=== PATIENT | male | born 1935 | race Caucasian/White ===

== ENCOUNTER 2017-02-14 11:06 | Inpatient (IN) | payer MEDICARE ==
--- NOTE | 2017-02-14 12:15 | ED ---
General Adult HPI - General Chief complaint: Extremity Injury, Upper Stated complaint: PAIN ON LEFT SIDE, HEART PATIENT Time Seen by Provider: 02/14/17 12:03 Source: patient, RN notes reviewed Mode of arrival: ambulatory Limitations: no limitations - History of Present Illness Initial comments: This is an 82 male to the ED co chest pain, Left shoulder pain, patient has history of atrial fibrillation, hypertension, high cholesterol, and history of AAA. Patient is currently on coumadin. Patient is poor historian, history obtained from patient's . Patient has history of dementia. Patient unsure of why he is in the ER, states patient was having chest pain left-sided chest pain and pain to his back starting last night. denies any fevers or nausea or vomiting patient has not had any acute distress or any signs or symptoms of shortness of breath - Related Data Home Medications Medication Instructions Recorded Confirmed Acetaminophen Tab [Tylenol] 500 mg PO HS 06/10/14 02/14/17 Allopurinol 100 mg PO Q48H 06/10/14 02/14/17 Aspirin EC [Ecotrin Low Dose] 81 mg PO HS 06/10/14 02/14/17 Atenolol 25 mg PO HS 06/10/14 02/14/17 Donepezil HCl 10 mg PO HS 06/10/14 02/14/17 Multivitamins, Thera [Multivitamin 1 tab PO DAILY 06/10/14 02/14/17 (formulary)] Quinapril HCl [Accupril] 20 mg PO BID 06/10/14 02/14/17 Warfarin [Coumadin] 3.75 mg PO MOTH 06/11/14 02/14/17 Isosorbide Dinitrate [Isordil] 10 mg PO DAILY 03/24/16 02/14/17 Warfarin [Coumadin] 2.5 mg PO SUTUWEFRSA 03/24/16 02/14/17 Atenolol [Tenormin] 12.5 mg PO DAILY 02/14/17 02/14/17 Hydrochlorothiazide [Hydrodiuril] 25 mg PO DAILY 02/14/17 02/14/17 Simvastatin [Zocor] 40 mg PO HS 02/14/17 02/14/17 Allergies Allergy/AdvReac Type Severity Reaction Status Date / Time No Known Allergies Allergy Verified 02/14/17 12:24 Review of Systems ROS Statement: Those systems with pertinent positive or pertinent negative responses have been documented in the HPI. ROS Other: All systems not noted in ROS Statement are negative. Past Medical History Past Medical History: Atrial Fibrillation, Cancer, Dementia, Hyperlipidemia, Hypertension Additional Past Medical History / Comment(s): HX OF COLON CANCER. HX OF CHF. GOUT, HAS AAA THAT IS BEING MONITORED. BEGINNING DEMENTIA. History of Any Multi-Drug Resistant Organisms: None Reported Past Surgical History: Bowel Resection, Coronary Bypass/CABG Additional Past Surgical History / Comment(s): CATARACTS, CABG 1996. Past Anesthesia/Blood Transfusion Reactions: No Reported Reaction, Motion Sickness Past Psychological History: No Psychological Hx Reported Smoking Status: Never smoker Past Alcohol Use History: Rare Past Drug Use History: None Reported - Past Family History Brother(s) Family Medical History: Cancer Additional Family Medical History / Comment(s): PROSTATE CA General Exam Limitations: no limitations General appearance: alert, in no apparent distress Head exam: Present: atraumatic, normocephalic, normal inspection Eye exam: Present: normal appearance, PERRL, EOMI. Absent: scleral icterus, conjunctival injection, periorbital swelling ENT exam: Present: normal exam, mucous membranes moist Neck exam: Present: normal inspection. Absent: tenderness, meningismus, lymphadenopathy Respiratory exam: Present: normal lung sounds bilaterally. Absent: respiratory distress, wheezes, rales, rhonchi, stridor Cardiovascular Exam: Present: regular rate, normal rhythm, normal heart sounds. Absent: systolic murmur, diastolic murmur, rubs, gallop, clicks GI/Abdominal exam: Present: soft, normal bowel sounds. Absent: distended, tenderness, guarding, rebound, rigid Extremities exam: Present: normal inspection, full ROM, normal capillary refill. Absent: tenderness, pedal edema, joint swelling, calf tenderness Back exam: Present: normal inspection Neurological exam: Present: alert, oriented X3, CN II-XII intact Psychiatric exam: Present: normal affect, normal mood Skin exam: Present: warm, dry, intact, normal color. Absent: rash Course Vital Signs 02/14/17 02/14/17 02/14/17 11:53 12:38 13:55 Temperature 97.8 F Pulse Rate 57 L 81 Respiratory 16 18 Rate Blood Pressure 143/89 131/96 140/83 O2 Sat by Pulse 97 97 Oximetry - Reevaluation(s) Reevaluation #1: 02/14/17 14:36 Medical records reviewed including prior CTA regarding abdominal AAA, patient is not having abdominal pain at this time EKG Findings - EKG Comments: EKG Findings:: EKG shows sinus tachycardia rate of 111, [place] 176, QRS 90, QTC 489 Medical Decision Making - Medical Decision Making 79 female the ER for evaluation regarding left-sided chest pain back pain radiation from the front of his chest to his back. Patient has history of heart disease, currently on blood thinners, no need for anticoagulation at this time. Patient be admitted for cardiac monitoring cardiology evaluation, repeat troponin testing and telemetry. - Lab Data Result diagrams: 02/14/17 12:50 02/14/17 12:50 Lab Results 02/14/17 02/14/17 02/14/17 Range/Units 12:50 12:50 12:50 WBC 7.9 (3.8-10.6) k/uL RBC 5.21 (4.30-5.90) m/uL Hgb 15.7 (13.0-17.5) gm/dL Hct 47.3 (39.0-53.0) % MCV 90.8 (80.0-100.0) fL MCH 30.1 (25.0-35.0) pg MCHC 33.2 (31.0-37.0) g/dL RDW 12.3 (11.5-15.5) % Plt Count 244 (150-450) k/uL Neutrophils % 70 % Lymphocytes % 17 % Monocytes % 7 % Eosinophils % 4 % Basophils % 1 % Neutrophils # 5.6 (1.3-7.7) k/uL Lymphocytes # 1.3 (1.0-4.8) k/uL Monocytes # 0.6 (0-1.0) k/uL Eosinophils # 0.3 (0-0.7) k/uL Basophils # 0.1 (0-0.2) k/uL PT (9.0-12.0) sec INR (<1.2) APTT (22.0-30.0) sec Sodium 137 (137-145) mmol/L Potassium 4.4 (3.5-5.1) mmol/L Chloride 98 (98-107) mmol/L Carbon Dioxide 29 (22-30) mmol/L Anion Gap 10 mmol/L BUN 14 (9-20) mg/dL Creatinine 0.82 (0.66-1.25) mg/dL Est GFR (MDRD) Af Amer >60 (>60 ml/min/1.73 sqM) Est GFR (MDRD) Non-Af >60 (>60 ml/min/1.73 sqM) Glucose 119 H (74-99) mg/dL Calcium 9.7 (8.4-10.2) mg/dL Magnesium 1.7 (1.6-2.3) mg/dL Total Bilirubin 0.9 (0.2-1.3) mg/dL AST 28 (17-59) U/L ALT 31 (21-72) U/L Alkaline Phosphatase 66 (38-126) U/L Total Creatine Kinase 41 L (55-170) U/L CK-MB (CK-2) 1.4 (0.0-2.4) ng/mL CK-MB (CK-2) Rel Index 3.4 Troponin I <0.012 (0.000-0.034) ng/mL NT-Pro-B Natriuret Pep pg/mL Total Protein 6.9 (6.3-8.2) g/dL Albumin 4.2 (3.5-5.0) g/dL Lipase 69 (23-300) U/L 02/14/17 02/14/17 Range/Units 12:50 12:50 WBC (3.8-10.6) k/uL RBC (4.30-5.90) m/uL Hgb (13.0-17.5) gm/dL Hct (39.0-53.0) % MCV (80.0-100.0) fL MCH (25.0-35.0) pg MCHC (31.0-37.0) g/dL RDW (11.5-15.5) % Plt Count (150-450) k/uL Neutrophils % % Lymphocytes % % Monocytes % % Eosinophils % % Basophils % % Neutrophils # (1.3-7.7) k/uL Lymphocytes # (1.0-4.8) k/uL Monocytes # (0-1.0) k/uL Eosinophils # (0-0.7) k/uL Basophils # (0-0.2) k/uL PT 23.7 H (9.0-12.0) sec INR 2.5 H (<1.2) APTT 31.2 H (22.0-30.0) sec Sodium (137-145) mmol/L Potassium (3.5-5.1) mmol/L Chloride (98-107) mmol/L Carbon Dioxide (22-30) mmol/L Anion Gap mmol/L BUN (9-20) mg/dL Creatinine (0.66-1.25) mg/dL Est GFR (MDRD) Af Amer (>60 ml/min/1.73 sqM) Est GFR (MDRD) Non-Af (>60 ml/min/1.73 sqM) Glucose (74-99) mg/dL Calcium (8.4-10.2) mg/dL Magnesium (1.6-2.3) mg/dL Total Bilirubin (0.2-1.3) mg/dL AST (17-59) U/L ALT (21-72) U/L Alkaline Phosphatase (38-126) U/L Total Creatine Kinase (55-170) U/L CK-MB (CK-2) (0.0-2.4) ng/mL CK-MB (CK-2) Rel Index Troponin I (0.000-0.034) ng/mL NT-Pro-B Natriuret Pep 486 pg/mL Total Protein (6.3-8.2) g/dL Albumin (3.5-5.0) g/dL Lipase (23-300) U/L - Radiology Data Radiology results: report reviewed (Chest x-ray is negative for acute disease), image reviewed Critical Care Time Critical Care Time: Yes Total Critical Care Time: 31 Disposition Clinical Impression: Chest pain Disposition: HOME SELF-CARE Condition: Good Referrals: Judah Enrique MD [Primary Care Provider] - 1-2 days
[2017-02-14 13:11] LABS: Basophils # (A) 0.1 k/uL (0-0.2); Basophils % (A) 1 %; CH 30.2; CHCM 33.4; Eosinophils # (A) 0.3 k/uL (0-0.7); Eosinophils % (A) 4 %; HCT 47.3 % (39.0-53.0); HDW 2.46; HGB 15.7 gm/dL (13.0-17.5); Luc # (Auto) 0.12; Luc % (Auto) 2; Lymphocytes # (A) 1.3 k/uL (1.0-4.8); Lymphocytes % (A) 17 %; MCH 30.1 pg (25.0-35.0); MCHC 33.2 g/dL (31.0-37.0); MCV 90.8 fL (80.0-100.0); Mean Platelet Volume 6.9; Monocytes # (A) 0.6 k/uL (0-1.0); Monocytes % (A) 7 %; Neutrophils # (A) 5.6 k/uL (1.3-7.7); Neutrophils % (A) 70 %; RBC 5.21 m/uL (4.30-5.90); RDW 12.3 % (11.5-15.5); WBC 7.9 k/uL (3.8-10.6); WBC (Perox) 8.05
[2017-02-14 13:17] LABS: ALT 31 U/L (21-72); AST 28 U/L (17-59); Alkaline Phosphatase 66 U/L (38-126); Anion Gap 10 mmol/L; Blood Urea Nitrogen 14 mg/dL (9-20); Calcium 9.7 mg/dL (8.4-10.2); Carbon Dioxide 29 mmol/L (22-30); Chloride 98 mmol/L (98-107); Glucose 119 mg/dL (74-99); Magnesium 1.7 mg/dL (1.6-2.3); Non-African American GFR(MDRD) >60 (>60 ml/min/1.73 sqM); Potassium 4.4 mmol/L (3.5-5.1); Sodium 137 mmol/L (137-145); Total Bilirubin 0.9 mg/dL (0.2-1.3); Total Protein 6.9 g/dL (6.3-8.2)
[2017-02-14 13:23] LABS: Creatine Kinase 41 U/L (55-170)
[2017-02-14 13:25] LABS: INR 2.5 (<1.2); Partial Thromboplastin Time 31.2 sec (22.0-30.0); Prothrombin Time 23.7 sec (9.0-12.0)
--- NOTE | 2017-02-14 13:27 | XR ---
EXAMINATION TYPE: XR chest 2V DATE OF EXAM: 02/14/2017 COMPARISON: Prior chest x-ray 06/08/2014 HISTORY: Chest pain and left arm numbness TECHNIQUE: Frontal and lateral views of the chest are obtained on 4 images. FINDINGS: There is no focal air space opacity, pleural effusion, or pneumothorax seen. The cardiac silhouette size is stable and enlarged, surgical clips are again noted. There are overlying cardiac leads. The aorta is dense. Prominent lung volumes are again noted may be indicative of COPD. Thicken ing of the minor fissure stable. The osseous structures are intact. IMPRESSION: No acute cardiopulmonary process.
[2017-02-14 13:35] LABS: Creatine Kinase MB 1.4 ng/mL (0.0-2.4); Troponin I <0.012 ng/mL (0.000-0.034)
[2017-02-14] MEDS ORDERED: NITROGLYCERIN SL TABS 0.4 MG TAB SUBLINGUAL PRN (14:34)
[2017-02-14] MEDS ORDERED: ASPIRIN 81 MG PO STA (14:34)
[2017-02-14] MEDS ORDERED: MORPHINE SULFATE 4 MG/ML SYRINGE IV PRN (14:34)
[2017-02-14] MEDS ORDERED: MORPHINE SULFATE 10 MG/ML 1ML VIAL IV PRN (14:37)
[2017-02-14] MEDS ORDERED: WARFARIN 7.5 MG TAB PO SCH (18:00)
--- NOTE | 2017-02-14 18:35 | P.HPIM ---
History of Present Illness Chief complaint Left chest arm and back pain. History present illness Patient is an 82-year-old gentleman who has underlying dementia. Apparently he was brought in earlier by his stating that he had chest pain that started last evening. Patient himself complains of pain in the left back area and left lateral shoulder areas. Patient does have history of coronary artery disease and has had previous bypass surgery. Patient himself is a somewhat compromised historian. And has some memory impairment with his underlying Alzheimer's dementia. Past medical history History of coronary artery disease and previous coronary artery bypass. Hypertension History of gout Hypercholesterolemia History of abdominal aortic aneurysm Alzheimer's dementia Paroxysmal atrial fibrillation History of colonic polyps. Surgical history includes the coronary artery bypass. He's had bilateral eye surgeries. History of right colectomy. Medications: No known ALLERGIES Home medications: Acetaminophen 500 mg at night Allopurinol 100 mg every other day Aspirin 81 mg at at bedtime Atenolol 25 mg at at bedtime, 12.5 in the morning Aricept 10 mg at at bedtime Multiple vitamin daily Accupril 20 mg twice a day for blood pressure, VANCE inhibitor Coumadin 3.75 mg on Mondays and . 2.5 mg other days. Isosorbide dinitrate 10 mg daily Hydrochlorothiazide 25 mg daily Simvastatin 40 mg at at bedtime. Review of systems: Patient denies any unusual headache or visual disturbances. No fever chills or cough. No pleuritic pain. Chest pain as described above. Apparently has been very intermittent. No definite exertional component. No history of any specific injury. No nausea or vomiting. Patient denies any urinary or bowel symptomatology. Social history No history of smoking. No alcohol usage. Lives locally with his in the [facility]. Family history noncontributory Physical examination: The patient sitting up on the examination stretcher in the emergency room. In no acute distress. But mildly anxious. He initially stated that [place] Did not know that he was in the emergency room. He did not know who I was but recognized me as being familiar. He was not sure why he was where he was at. Vital signs revealed a temperature of 97.8 with a blood pressure of 147/88. Pulse was up to 118. Respirations 20. He is 94% saturated on room air. Head and neck exam unremarkable. No carotid bruits or adenopathy. No thyromegaly. Lungs were clear to auscultation. Heart tones were regular without murmurs or rubs. Slightly tachycardic. No marked chest wall tenderness noted. Abdomen was soft and nontender. No definite organomegaly noted. Extremities reveal no edema. Neurologically he is somewhat confused to place and time as stated above. No definite cranial or other focal deficits noted though. Laboratory CBC unremarkable with a white count 7.9, hemoglobin 15.7 and platelet count 244 INR 2.5. Electrolytes were normal with potassium 4.4 and sodium 137. BUN of 14 with creatinine 0.82 given him a GFR greater than 60. Blood sugar was 119. Other liver function tests normal. CK was only 41 with a troponin of less than 0.012. BNP was 486. Albumin 4.2. Chest x-ray revealed no acute process. EKG showed a sinus tachycardia with PVCs present. Nonspecific ST changes but no definite ischemic changes noted. Impressions: Chest pain as discussed in this 82-year-old gentleman with underlying Alzheimer' s disease. Enzymes presently normal. EKG nonspecific. The patient does have risk factors with underlying coronary artery disease and hypertension and hypercholesterolemia. History of atrial fibrillation on Coumadin. Therapeutic. Other past medical history as stated above. Plans: As discussed with the emergency room physician. The patient will be placed under observation overnight with serial troponin values performed. We've resumed his home medications including his nitrates and beta blockers and antihypertensive medications. Consultation with cardiology. Further recommendations pending clinical response and results of above. Past Medical History Past Medical History: Atrial Fibrillation, Cancer, Dementia, Hyperlipidemia, Hypertension Additional Past Medical History / Comment(s): HX OF COLON CANCER. HX OF CHF. GOUT, HAS AAA THAT IS BEING MONITORED. BEGINNING DEMENTIA. History of Any Multi-Drug Resistant Organisms: None Reported Past Surgical History: Bowel Resection, Coronary Bypass/CABG Additional Past Surgical History / Comment(s): CATARACTS, CABG 1996. Past Anesthesia/Blood Transfusion Reactions: No Reported Reaction, Motion Sickness Past Psychological History: No Psychological Hx Reported Smoking Status: Never smoker Past Alcohol Use History: Rare Past Drug Use History: None Reported - Past Family History Brother(s) Family Medical History: Cancer Additional Family Medical History / Comment(s): PROSTATE CA Medications and Allergies Home Medications Medication Instructions Recorded Confirmed Type Acetaminophen Tab [Tylenol] 500 mg PO HS 06/10/14 02/14/17 History Allopurinol 100 mg PO Q48H 06/10/14 02/14/17 History Aspirin EC [Ecotrin Low Dose] 81 mg PO HS 06/10/14 02/14/17 History Atenolol 25 mg PO HS 06/10/14 02/14/17 History Donepezil HCl 10 mg PO HS 06/10/14 02/14/17 History Multivitamins, Thera [Multivitamin 1 tab PO DAILY 06/10/14 02/14/17 History (formulary)] Quinapril HCl [Accupril] 20 mg PO BID 06/10/14 02/14/17 History Warfarin [Coumadin] 3.75 mg PO MOTH 06/11/14 02/14/17 History Isosorbide Dinitrate [Isordil] 10 mg PO DAILY 03/24/16 02/14/17 History Warfarin [Coumadin] 2.5 mg PO SUTUWEFRSA 03/24/16 02/14/17 History Atenolol [Tenormin] 12.5 mg PO DAILY 02/14/17 02/14/17 History Hydrochlorothiazide [Hydrodiuril] 25 mg PO DAILY 02/14/17 02/14/17 History Simvastatin [Zocor] 40 mg PO HS 02/14/17 02/14/17 History Allergies Allergy/AdvReac Type Severity Reaction Status Date / Time No Known Allergies Allergy Verified 02/14/17 12:24 Physical Exam Vitals: Vital Signs Temp Pulse Resp BP Pulse Ox 02/14/17 18:02 97.8 F 118 H 20 147/88 94 L 02/14/17 17:00 108 H 18 157/84 99 02/14/17 15:48 108 H 18 133/81 98 02/14/17 14:44 101 H 18 162/73 97 02/14/17 13:55 81 18 140/83 97 02/14/17 12:38 131/96 02/14/17 11:53 97.8 F 57 L 16 143/89 97 Intake and Output 02/14/17 02/14/17 02/14/17 06:59 14:59 22:59 Other: Weight 99.337 kg Patient Weight 02/15/17 06:59 Weight 99.337 kg Results CBC & Chem 7: 02/14/17 12:50 02/14/17 12:50 Labs: Abnormal Lab Results - Last 24 Hours (Table) 02/14/17 02/14/17 02/14/17 Range/Units 12:50 12:50 12:50 PT 23.7 H (9.0-12.0) sec INR 2.5 H (<1.2) APTT 31.2 H (22.0-30.0) sec Glucose 119 H (74-99) mg/dL Total Creatine Kinase 41 L (55-170) U/L
[2017-02-14] MEDS ORDERED: ATENOLOL 50 MG TAB PO STA (19:11)
[2017-02-14] MEDS: ATENOLOL 25 MG TAB PO SCH (19:37)
[2017-02-14] MEDS: SODIUM CHLORIDE 0.9% 1,000 ML IV SCH (19:37)
[2017-02-14 19:59] LABS: Creatine Kinase 49 U/L (55-170)
[2017-02-14 20:12] LABS: Creatine Kinase MB 1.5 ng/mL (0.0-2.4); Troponin I <0.012 ng/mL (0.000-0.034)
[2017-02-14] MEDS: LISINOPRIL 20 MG TAB PO SCH (20:42)
[2017-02-14] MEDS: ALPRAZolam 0.5 MG TAB PO PRN (20:42)
[2017-02-14] MEDS: ACETAMINOPHEN TAB 500 MG TAB PO SCH (20:42)
[2017-02-14] MEDS: DONEPEZIL 10 MG TAB PO SCH (20:42)
[2017-02-14] MEDS: ATORVASTATIN 20 MG TAB PO SCH (20:42)
[2017-02-15 02:25] LABS: Creatine Kinase 48 U/L (55-170)
[2017-02-15 02:29] LABS: Cholesterol 125 mg/dL (<200); HDL Cholesterol 36 mg/dL (40-60)
[2017-02-15 02:37] LABS: Creatine Kinase MB 1.5 ng/mL (0.0-2.4); Troponin I <0.012 ng/mL (0.000-0.034)
--- NOTE | 2017-02-15 07:47 | P.PN ---
Progress Note - Text The patient is an 82-year-old gentleman who presented yesterday after having recurrent chest pain at home. Patient does have a history of coronary artery disease along with history of previous bypass. His also had atrial fibrillation in the past and required a conversion electrically couple years ago. is present this morning and states that he was having pain mostly when he was getting up and walking around in the house. Patient with his dementia does not really remember and today denies any chest pain or shortness of breath. Apparently patient is scheduled early next month for stress testing and echocardiogram as patient follows with cardiology as an outpatient. Vital signs reveal temperature 97.9 pulse of 59 and irregular with a respiration of 18 and blood pressure 131/64. He is 95% saturated on room air. Lung and heart examination is clear. Rate controlled. Abdomen nontender. No edema. No focal neurological deficits. Laboratory values CKs have remained low throughout the night along with troponins 3 less than 0.012. Cholesterol values are good with a LDL cholesterol of 72. EKG showed an irregular rhythm. Possible PVCs. Question underlying atrial/ fibrillation flutter. Impressions and plans Overall this 82-year-old gentleman who has some cognitive impairment presented with recurrent left chest and arm pain. And has underlying coronary artery disease. No definite myocardial infarction seen on laboratory testing. He is not having chest pain this morning so far. We'll await for cardiology evaluation and review. Discussed with patient and at bedside this morning.
[2017-02-15] MEDS ORDERED: AMINOPHYLLINE 500 MG/20 ML VIAL IV PRN (09:49)
[2017-02-15] MEDS ORDERED: REGADENOSON 0.4 MG/5 ML SYRINGE IV ONE (09:49)
[2017-02-15] MEDS: ASPIRIN 325 MG TAB PO SCH (11:54)
[2017-02-15] MEDS: MULTIVITAMINS, THERA 1 EACH TAB PO SCH (11:54)
[2017-02-15] MEDS: LISINOPRIL 20 MG TAB PO SCH ×2 (11:54→19:54)
[2017-02-15] MEDS: ISOSORBIDE DINITRATE 10 MG TAB PO SCH (11:54)
[2017-02-15] MEDS: HYDROCHLOROTHIAZIDE 25 MG TAB PO SCH (11:55)
[2017-02-15] MEDS: ATENOLOL 12.5 MG TAB PO SCH (11:55)
--- NOTE | 2017-02-15 11:55 | P.CRDCN ---
History of Present Illness Consult date: 02/15/17 History of present illness: This is an 82-year-old male who follow regularly with Dr. KEE Enamorado. Past medical history significant for CABG, CAD with totally occluded saphenous vein graft, patent HINDS to LAD, RCA and circumflex free of significant disease as of 2008. He also has hypertension, paroxysmal atrial fibrillation and ischemic cardiomyopathy with systolic dysfunction EF 45%. He presented to the hospital with complaints of left shoulder, back and arm pain. He states this pain is worse when he moves his arm but is constant. He is a poor historian secondary to dementia. is at the bedside. He recently saw Dr. Enamorado and was scheduled for a Lexiscan early next month. Denies EKG reveals atrial flutter with controlled rate and PVC's. Chest xray megative for acute cardiopulmonary process. CBC within normal limits, potassium 4.4, magnesium 1.7, BUS and 14, creatinine 0.82, proBNP 486, HDL 36, LDL 72, triglycerides 83, total cholesterol 125. Cardiac enzymes negative 3. INR 2.5. Blood pressure 137/70 with a heart rate of 59. Current cardiac medications include Coumadin, Zocor 40 mg, Accupril 20 mg twice a day, isosorbide dinitrate 10 mg, hydrochlorothiazide 25 mg, isosorbide dinitrate 10 mg, atenolol, aspirin 81 mg. Review of Systems CONSTITUTIONAL: Denies fever. Denies chills. EYES: Denies blurred vision. Denies vision changes. Denies eye pain. EARS, NOSE, MOUTH & THROAT: Denies headache. Denies sore throat. Denies ear pain. CARDIOVASCULAR: Denies chest pain. Complains of intermittent shortness of breath. Denies orthopnea. Denies PND. Denies palpitations. RESPIRATORY: Denies cough. GASTROINTESTINAL: Denies abdominal pain. Denies diarrhea. Denies constipation. Denies nausea. Denies vomitng. MUSCULOSKELETAL: Denies myalgias. INTEGUMENTARY: Denies pruitis. Denies rash. NEUROLOGIC: Denies numbness. Denies tingling. Denies weakness. PSYCHIATRIC: Denies anxiety. Denies depression. ENDOCRINE: Denies fatigue. Denies weight change. Denies polydipsia. Denies polyurina. GENITOURINARY: Denies burning, hematuria or urgency with micturation. HEMATOLOGIC: Denies history of anemia. Denies bleeding. Past Medical History Past Medical History: Atrial Fibrillation, Cancer, Dementia, Hyperlipidemia, Hypertension Additional Past Medical History / Comment(s): HX OF COLON CANCER. HX OF CHF. GOUT, HAS AAA THAT IS BEING MONITORED. BEGINNING DEMENTIA. History of Any Multi-Drug Resistant Organisms: None Reported Past Surgical History: Bowel Resection, Coronary Bypass/CABG Additional Past Surgical History / Comment(s): CATARACTS, CABG 1996. Past Anesthesia/Blood Transfusion Reactions: No Reported Reaction, Motion Sickness Past Psychological History: No Psychological Hx Reported Smoking Status: Never smoker Past Alcohol Use History: Rare Past Drug Use History: None Reported - Past Family History Brother(s) Family Medical History: Cancer Additional Family Medical History / Comment(s): PROSTATE CA Medications and Allergies Home Medications Medication Instructions Recorded Confirmed Type Acetaminophen Tab [Tylenol] 500 mg PO HS 06/10/14 02/14/17 History Allopurinol 100 mg PO Q48H 06/10/14 02/14/17 History Aspirin EC [Ecotrin Low Dose] 81 mg PO HS 06/10/14 02/14/17 History Atenolol 25 mg PO HS 06/10/14 02/14/17 History Donepezil HCl 10 mg PO HS 06/10/14 02/14/17 History Multivitamins, Thera [Multivitamin 1 tab PO DAILY 06/10/14 02/14/17 History (formulary)] Quinapril HCl [Accupril] 20 mg PO BID 06/10/14 02/14/17 History Warfarin [Coumadin] 3.75 mg PO MOTH 06/11/14 02/14/17 History Isosorbide Dinitrate [Isordil] 10 mg PO DAILY 03/24/16 02/14/17 History Warfarin [Coumadin] 2.5 mg PO SUTUWEFRSA 03/24/16 02/14/17 History Atenolol [Tenormin] 12.5 mg PO DAILY 02/14/17 02/14/17 History Hydrochlorothiazide [Hydrodiuril] 25 mg PO DAILY 02/14/17 02/14/17 History Simvastatin [Zocor] 40 mg PO HS 02/14/17 02/14/17 History Allergies Allergy/AdvReac Type Severity Reaction Status Date / Time No Known Allergies Allergy Verified 02/14/17 12:24 Physical Exam Vitals: Vital Signs Temp Pulse Pulse Resp BP BP BP 02/15/17 08:00 97.4 F L 59 L 18 137/70 02/15/17 04:00 18 02/15/17 00:00 97.9 F 59 L 18 131/64 02/14/17 20:00 98.2 F 120 H 16 150/76 02/14/17 18:02 97.8 F 118 H 20 147/88 02/14/17 17:00 108 H 18 157/84 02/14/17 15:48 108 H 18 133/81 02/14/17 14:44 101 H 18 162/73 02/14/17 13:55 81 18 140/83 02/14/17 12:38 131/96 02/14/17 11:53 97.8 F 57 L 16 143/89 Pulse Ox 02/15/17 08:00 93 L 02/15/17 04:00 02/15/17 00:00 95 02/14/17 20:00 94 L 02/14/17 18:02 94 L 02/14/17 17:00 99 02/14/17 15:48 98 02/14/17 14:44 97 02/14/17 13:55 97 02/14/17 12:38 02/14/17 11:53 97 Intake and Output 02/14/17 02/15/17 02/15/17 22:59 06:59 14:59 Other: Voiding Method Toilet # Voids 1 Weight 98.7 kg GENERAL: This is a 82-year-old male in no apparent distress at the time of my examination. HEENT: Head is atraumatic, normocephalic. Pupils are equal, round. Sclerae anicteric. Conjunctivae are clear. Mucous membranes of the mouth are moist. Neck is supple. There is no jugular venous distention. No carotid bruit is heard. LUNGS: Clear to auscultation no wheezes, rales or rhonchi. No chest wall tenderness is noted on palpation or with deep breathing. HEART: Regular rate and rhythm without murmurs, rubs or gallops. S1 and S2 heard. ABDOMEN: Soft, nontender. Bowel sounds are heard. No organomegaly noted. EXTREMITIES: 2+ peripheral pulses with no evidence of peripheral edema and no calf tenderness noted. NEUROLOGIC: Patient is awake, alert and confused. Results 02/14/17 12:50 02/14/17 12:50 Cardiac Enzymes 02/14/17 02/14/17 02/14/17 Range/Units 12:50 12:50 19:05 AST 28 (17-59) U/L CK-MB (CK-2) 1.4 1.5 (0.0-2.4) ng/mL Troponin I <0.012 <0.012 (0.000-0.034) ng/mL 02/15/17 Range/Units 01:01 AST (17-59) U/L CK-MB (CK-2) 1.5 (0.0-2.4) ng/mL Troponin I <0.012 (0.000-0.034) ng/mL Coagulation 02/14/17 Range/Units 12:50 PT 23.7 H (9.0-12.0) sec APTT 31.2 H (22.0-30.0) sec Lipids 02/15/17 Range/Units 01:05 Triglycerides 83 (<150) mg/dL Cholesterol 125 (<200) mg/dL HDL Cholesterol 36 L (40-60) mg/dL CBC 02/14/17 Range/Units 12:50 WBC 7.9 (3.8-10.6) k/uL RBC 5.21 (4.30-5.90) m/uL Hgb 15.7 (13.0-17.5) gm/dL Hct 47.3 (39.0-53.0) % Plt Count 244 (150-450) k/uL Comprehensive Metabolic Panel 02/14/17 Range/Units 12:50 Sodium 137 (137-145) mmol/L Potassium 4.4 (3.5-5.1) mmol/L Chloride 98 (98-107) mmol/L Carbon Dioxide 29 (22-30) mmol/L BUN 14 (9-20) mg/dL Creatinine 0.82 (0.66-1.25) mg/dL Glucose 119 H (74-99) mg/dL Calcium 9.7 (8.4-10.2) mg/dL AST 28 (17-59) U/L ALT 31 (21-72) U/L Alkaline Phosphatase 66 (38-126) U/L Total Protein 6.9 (6.3-8.2) g/dL Albumin 4.2 (3.5-5.0) g/dL Current Medications Generic Name Dose Route Start Last Admin Trade Name Freq PRN Reason Stop Dose Admin Acetaminophen 500 mg 02/14/17 21:00 02/14/17 20:42 Tylenol Tab PO 500 mg HS EVONNE Administration Allopurinol 100 mg 02/16/17 09:00 Zyloprim PO Q48H [facility] Alprazolam 0.5 mg 02/14/17 18:36 02/14/17 20:42 Xanax PO 0.5 mg TID PRN Administration Anxiety Aminophylline 100 mg 02/15/17 09:49 Aminophylline IV 02/15/17 16:00 ONCE PRN Patient Response Aspirin 325 mg 02/15/17 09:00 Aspirin PO DAILY [facility] Atenolol 25 mg 02/14/17 21:00 02/14/17 19:37 Tenormin PO Not Given HS [facility] Atenolol 12.5 mg 02/15/17 09:00 Tenormin PO DAILY [facility] Atorvastatin Calcium 20 mg 02/14/17 21:00 02/14/17 20:42 Lipitor PO 20 mg HS [facility] Administration Donepezil HCl 10 mg 02/14/17 21:00 02/14/17 20:42 Aricept PO 10 mg HS [facility] Administration Hydrochlorothiazide 25 mg 02/15/17 09:00 Hydrodiuril PO DAILY [facility] Sodium Chloride 1,000 mls @ 20 mls/hr 02/14/17 14:45 02/14/17 19:37 Saline 0.9% IV Not Given .Q24H [facility] Isosorbide Dinitrate 10 mg 02/15/17 09:00 Isordil PO DAILY [facility] Lisinopril 20 mg 02/14/17 21:00 02/14/17 20:42 Zestril PO 20 mg BID [facility] Administration Morphine Sulfate 4 mg 02/14/17 14:37 Morphine Sulfate IV Q5M PRN Chest Pain Multivitamins 1 each 02/15/17 12:00 Theragran PO DAILY@1200 [facility] Nitroglycerin 0.4 mg 02/14/17 14:34 Nitrostat SUBLINGUAL Q5M PRN Chest Pain Warfarin Sodium 2.5 mg 02/15/17 18:00 Coumadin PO SUTUWEFRSA [facility] Warfarin Sodium 3.75 mg 02/14/17 18:00 02/14/17 20:41 Coumadin PO 3.75 mg MOTH EVONNE Administration Intake and Output 02/14/17 02/15/17 02/15/17 22:59 06:59 14:59 Other: Voiding Method Toilet # Voids 1 Weight 98.7 kg 02/14/17 12:50 02/14/17 12:50 Assessment and Plan Assessment: ASSESSMENT 1. Chest pain, musculoskeletal 2. Chronic stable CAD with previous bypass grafting 3. Essential hypertension 4. Dyslipidemia 5. Paroxysmal atrial fibrillation/flutter, chronic on jail anticoagulation 6. Dementia PLAN Although his symptoms present more musculoskeletal in nature this was discussed with his . Given the option of following up at her regularly scheduled appointment for this testing she request that we move forward today. Therefore we will obtain lexiscan and 2D echocardiogram doppler study to assess cardiac structure and function. If this is normal he can go home to follow up with Dr. Enamorado in 2 weeks time. Nurse Practitioner note has been reviewed, I agree with a documented findings and plan of care. Patient was seen and examined.
--- NOTE | 2017-02-15 12:21 | ECHOF ---
Referral Reason:chest pain MEASUREMENTS -------- HEIGHT: 182.9 cm WEIGHT: 98.4 kg BP: 137/70 RVIDd: 2.8 cm (< 3.3) IVSd: 1.4 cm (0.6 - 1.1) LVIDd: 5.4 cm (3.9 - 5.3) LVPWd: 1.4 cm (0.6 - 1.1) IVSs: 1.8 cm LVIDs: 3.5 cm LVPWs: 1.5 cm LA Diam: 3.9 cm (2.7 - 3.8) LAESV Index (A-L): 35.13 ml/m Ao Diam: 4.5 cm (2.0 - 3.7) AV Cusp: 2.5 cm (1.5 - 2.6) MV EXCURSION: 15.857 mm (> 18.000) MV EF SLOPE: 49 mm/s (70 - 150) EPSS: 0.9 cm AR PHT: 663 ms RAP: 5.00 mmHg RVSP: 29.26 mmHg FINDINGS -------- This was a technically good study. The left ventricular size is normal. There is moderate concentric left ventricular hypertrophy. Overall left ventricular systolic function is mild-moderately impaired with, an EF between 40 - 45 %. Basal inferior LV wall motion is hypokinetic. Basal inferoseptal LV wall motion is hypokinetic. The right ventricle is normal in size. LA is moderately dilated 34-39 ml/m2 The right atrium is normal in size. There is mild aortic valve sclerosis. Mild mitral annular calcification present. Mild tricuspid regurgitation present. Right ventricular systolic pressure is normal at < 35 mmHg. Moderate pulmonic regurgitation. The aortic root is dilated measuring 4.5cm. Normal inferior vena cava with normal inspiratory collapse consistent with estimated right atrial pressure of 5 mmHg. There is no pericardial effusion. CONCLUSIONS -------- 1. This was a technically good study. 2. There is mild aortic valve sclerosis. 3. Mild mitral annular calcification present. 4. Mild tricuspid regurgitation present. 5. Right ventricular systolic pressure is normal at < 35 mmHg. 6. Moderate pulmonic regurgitation. 7. The aortic root is dilated measuring 4.5cm. 8. Normal inferior vena cava with normal inspiratory collapse consistent with estimated right atrial pressure of 5 mmHg. 9. There is no pericardial effusion. 10. The left ventricular size is normal. 11. There is moderate concentric left ventricular hypertrophy. 12. Overall left ventricular systolic function is mild-moderately impaired with, an EF between 40 - 45 %. 13. Basal inferior LV wall motion is hypokinetic. 14. Basal inferoseptal LV wall motion is hypokinetic. 15. The right ventricle is normal in size. 16. LA is moderately dilated 34-39 ml/m2 17. The right atrium is normal in size. APPLE PICKER: Sari Becerril RDCS
[2017-02-15] MEDS ORDERED: ATENOLOL 25 MG TAB PO STA (12:45)
--- NOTE | 2017-02-15 13:19 | EST ---
EXERCISE STRESS DATE OF SERVICE: 02/15/2017 AGE: 82 SEX: Male HT: 6'0" WT: 230 pounds PROTOCOL: Lexiscan Cardiolite STAGE: DURATION OF EXERCISE: HEART RATE REST: 121 BLOOD PRESSURE REST: 219/114 MAXIMUM HEART RATE ACHIEVED: 121 MAXIMUM BLOOD PRESSURE: 232/107 85% MPHR: 100% MPHR: METS: INDICATION OF THE STUDY: Chest pain, coronary artery disease. STRESS DATA: Pretesting physical examination showed a heart rate of 121, pressures of 219/114 mmHg. Baseline EKG showed sinus tachycardia. The patient was given 0.4 mg of Lexiscan over 15 seconds per protocol. The max heart rate was 121 beats per minute and maximum pressure was 232/107 mmHg. Clinically, the patient did not have any symptoms and the EKG did not show any significant ST or T-wave abnormalities consistent with ischemia. CONCLUSION: 1. Nondiagnostic electrocardiogram stress testing in response to Lexiscan. 2. Please follow up on the Cardiolite portion on a separate report from Radiology Department. MMODL / IJN: [id number] /
--- NOTE | 2017-02-15 13:21 | NM ---
EXAMINATION TYPE: NM stress lexiscan cardiolite DATE OF EXAM: 02/15/2017 COMPARISON: NONE HISTORY: Chest pain TECHNIQUE: After the intravenous administration of 11.5 mCi Tc 99m Sestamibi - Cardiolite resting SP ECT images acquired 45 minutes post injection. The patient received 0.4mg Lexiscan, 29.0 mCi Tc 99m Sestamibi - Stress images obtained [address] injection FINDINGS: Review of stress and rest SPECT images demonstrates decreased radio pharmaceutical uptake along the a nterior wall of the left ventricle on stress and rest images. Along the anterolateral left ventricle there is decreased uptake on stress images as compared to rest images extends into the apex. Gated an alysis shows normal wall motion with an estimated left ventricular ejection fraction of 48 %. IMPRESSION: Findings compatible with pharmacologically induced left ventricular myocardial ischemia along the pre vious infarct along the anterior wall.
[2017-02-15] MEDS ORDERED: WARFARIN 2.5 MG TAB PO SCH (18:00)
[2017-02-15] MEDS: SODIUM CHLORIDE 0.9% 1,000 ML IV SCH (18:15)
[2017-02-15] MEDS: ACETAMINOPHEN TAB 500 MG TAB PO SCH (19:54)
[2017-02-15] MEDS: ALPRAZolam 0.5 MG TAB PO PRN (19:54)
[2017-02-15] MEDS: DONEPEZIL 10 MG TAB PO SCH (19:54)
[2017-02-15] MEDS: ATORVASTATIN 20 MG TAB PO SCH (19:54)
[2017-02-15] MEDS: ATENOLOL 25 MG TAB PO SCH (19:55)
--- NOTE | 2017-02-16 07:46 | P.PN ---
Progress Note - Text The patient is an 82-year-old gentleman who has a history of Alzheimer's and underlying coronary artery disease with a previous bypass surgery. He also has had underlying paroxysmal atrial fibrillation and ischemic cardiomyopathy with ejection fraction of 45%. The patient presented 2 days ago with chest pain to the emergency room. Enzymes were unremarkable and no definite EKG changes but stress testing has revealed induced left ventricular myocardial pharmacologically induced ischemia apparently along the previous infarct of the anterior wall. Patient himself denies any pain at this time. With his underlying dementia he at times has poor recall. This morning though he is verbalizing well in no acute distress. Last vital signs reveal temperature 97.7 with a pulse 58 and respirations 16. Blood pressure is 111/52 and he is 96% saturated on room air. Lung and heart examination is clear but slightly irregular rhythm. Abdomen nontender. No unusual edema. No focal neurological changes. No new labs as of this morning. Impressions and plan Overall as related above, this 82-year-old gentleman who does have element of dementia but also underlying coronary artery disease and positive stress testing. We'll wait for further family and cardiology decision for further workup or treatment.
[2017-02-16 07:57] VITALS: RESP 18
[2017-02-16] MEDS: HYDROCHLOROTHIAZIDE 25 MG TAB PO SCH (08:54)
[2017-02-16] MEDS: ISOSORBIDE DINITRATE 10 MG TAB PO SCH (08:54)
[2017-02-16] MEDS: LISINOPRIL 20 MG TAB PO SCH (08:54)
[2017-02-16] MEDS: ATENOLOL 12.5 MG TAB PO SCH (08:54)
[2017-02-16] MEDS: ASPIRIN 325 MG TAB PO SCH (08:54)
[2017-02-16] MEDS: MULTIVITAMINS, THERA 1 EACH TAB PO SCH (08:55)
[2017-02-16] MEDS ORDERED: ALLOPURINOL 100 MG TAB PO SCH (09:00)
[2017-02-16 11:57] VITALS: BP 110/69; PULSE 56; TEMP 98.6
--- NOTE | 2017-02-16 13:20 | P.PN ---
Subjective This is an 82-year-old male who follow regularly with Dr. KEE Enamorado. Past medical history significant for CABG, CAD with totally occluded saphenous vein graft, patent HINDS to LAD, RCA and circumflex free of significant disease as of 2008. He also has hypertension, paroxysmal atrial fibrillation and ischemic cardiomyopathy with systolic dysfunction EF 45%. He presented to the hospital with complaints of left shoulder, back and arm pain. He states this pain is worse when he moves his arm but is constant. He is a poor historian secondary to dementia. is at the bedside. He recently saw Dr. Enamorado and was scheduled for a Lexiscan early next month. Denies EKG reveals atrial flutter with controlled rate and PVC's. Chest xray megative for acute cardiopulmonary process. CBC within normal limits, potassium 4.4, magnesium 1.7, BUS and 14, creatinine 0.82, proBNP 486, HDL 36, LDL 72, triglycerides 83, total cholesterol 125. Cardiac enzymes negative 3. INR 2.5. Blood pressure 137/70 with a heart rate of 59. Current cardiac medications include Coumadin, Zocor 40 mg, Accupril 20 mg twice a day, isosorbide dinitrate 10 mg, hydrochlorothiazide 25 mg, isosorbide dinitrate 10 mg, atenolol, aspirin 81 mg. 02/16/2017 Mr. Alvaardo has had no further episodes of chest pain. He continues to have intermittent episodes of confusion consistent with his history of dementia. Blood pressure 128/68 with heart rate 59. He had multiple episodes of arrhythmia with PVCs as well as tachyarrhythmia on telemetry. An additional dose of atenolol was given. Objective - Vital Signs Vital signs: Vital Signs Temp 98.6 F 02/16/17 11:56 Pulse 56 L 02/16/17 11:56 Resp 18 02/16/17 08:00 BP 110/69 02/16/17 11:56 Pulse Ox 95 02/16/17 11:56 Intake & Output 02/15/17 02/16/17 02/16/17 18:59 06:59 18:59 Intake Total 900 Balance 900 Intake: Oral 900 Other: Voiding Method Toilet Toilet Toilet - Exam GENERAL: Well-appearing, well-nourished and in no acute distress. NECK: Supple without JVD or thyromegaly. LUNGS: Breath sounds clear to auscultation bilaterally. Respiration equal and unlabored. No wheezes, rales or rhonchi. HEART: Regular rate and rhythm without murmurs, rubs or gallops. S1 and S2 heard. EXTREMITIES: Normal range of motion, no edema. No clubbing or cyanosis. Peripheral pulses intact and strong. - Labs CBC & Chem 7: 02/14/17 12:50 02/14/17 12:50 Assessment and Plan Assessment: ASSESSMENT 1. Chest pain, musculoskeletal 2. Chronic stable CAD with previous bypass grafting 3. Essential hypertension 4. Dyslipidemia 5. Paroxysmal atrial fibrillation/flutter, chronic on [place] agent anticoagulation 6. Dementia PLAN Lexiscan stress test showed findings compatible decreased uptake along the anterolateral LV on stress images compared to rest that extends into the apex. These results were discussed with the patient and his at length. Due to his dementia and current state of health it is recommended that he be treated with medical management at this time. The patient and his are agreeable. He is stable to go home on current medication regimen and follow up with Dr. Enamorado in 2 weeks. Nurse Practitioner note has been reviewed, I agree with a documented findings and plan of care. Patient was seen and examined.
--- NOTE | 2017-02-18 07:22 | DS ---
DISCHARGE SUMMARY Mr. Alvarado is an 82-year-old gentleman who was brought into the emergency room with a history of chest pain. The patient has history of previous coronary artery bypass graft and is followed by Dr. Vesna Enamorado in the office. The patient also does have an element of late onset Alzheimer disease with poor memory and the patient was more left chest, left shoulder and back seemed to occur more with movement and no unusual fever or chills or cough associated with this. The other risk factors include underlying obesity, hypertension and hypercholesterolemia. Patient was admitted to observation and monitored. Continued his nitrates and beta blockers and his antihypertensive medications. His subsequent troponin values and CK values have remained unremarkable. CBC was normal with a white count of 7.9, hemoglobin 15.7, and platelet count 244. His INR was 2.5 which is therapeutic and he is on Coumadin with a history also of paroxysmal atrial fibrillation. BUN was 14 with a creatinine of 1.2. Potassium was 4.4, and GFR was 62. The EKG did not show any definite ischemic changes. There was some tachycardia and PVCs were present. The patient also had a chest x-ray, which showed no acute pulmonary process. He was seen in consult by cardiology and an echocardiogram was also performed which revealed mild aortic valve sclerosis. Dilatation of the aortic root at 4.5 cm. The LV size was normal. The ejection fraction was between 40 and 50%. Basilar inferior LV wall motion, was hypokinetic. Patient underwent subsequent stress testing which revealed a diagnostic electrocardiographic testing but the Lexiscan scan revealed findings compatible with pharmacologic induced LV myocardial ischemia along the previous infarct in anterior wall. Following this there was discussion between myself and Dr. Butler from cardiology who discussed further the next day, with the patient and family. It was elected at this time in light of patient's clinical stabilization and underlying Alzheimer' s that they would continue for now with continued medical management. Subject to change his clinical presentation changes with follow up. Plans were therefore to discharge him home. Continuing with the acetaminophen 500 mg at bedtime as needed. Allopurinol 100 mg every 48 hours. Aspirin 81 mg at bedtime. Atenolol was increased to 25 mg in the morning and 25 mg at bedtime. Continue hydrochlorothiazide 25 mg daily, isordil was increased to 10 mg twice a day. He is to take a multiple vitamin daily. Quinapril 20 mg twice a day. Simvastatin 40 mg at bedtime. He is on Coumadin 2.5 daily and Coumadin except for Mondays and where he takes 3.75. He will follow up with myself and Dr. Vesna Enamorado in the next 7 to 10 days. Call the office with any questions, concerns, or problems. He is to return to the ER if any very significant chest pain that is not relieved with nitroglycerin. FINAL DISCHARGE DIAGNOSES: 1. Acute chest pain related to unstable angina. With a positive Lexiscan stress test in an 82-year-old gentleman with element of late onset Alzheimer's and history of previous coronary artery bypass graft and underlying coronary artery disease. Other risk factors and past medical history includes hypertension, history of gout, hypercholesterolemia, history of abdominal aortic aneurysm, history of Alzheimer's dementia, stated above. 2. He also has paroxysmal atrial fibrillation for which he is on Coumadin. 3. History of previous colon polyps. 4. History of previous right colectomy for polyps. The patient too keep activities as a minimum. Diet activity as tolerated. Followup with Dr. Vesna Enamorado and myself. MMODL / MURRAYN: [id number] / [email or web address]
== END 2017-02-16 12:13 | disposition home or self-care (01) | DRG 303 ==
LOC: EC 11:06 → 3OBS 14:34 → OBSVTOIN 02-15 15:06
PROVIDERS: ADMIT Internal Medicine; ATTEND Internal Medicine
DX: I25.710 Atherosclerosis of autologous vein coronary artery bypass graft(s) with unstable angina pectoris (principal); I11.0 Hypertensive heart disease with heart failure; I48.92 Unspecified atrial flutter; I50.9 Heart failure, unspecified; I25.5 Ischemic cardiomyopathy; G30.1 Alzheimer's disease with late onset; F02.80 Dementia in other diseases classified elsewhere, unspecified severity, without behavioral disturbance, psychotic disturbance, mood disturbance, and anxiety; I49.3 Ventricular premature depolarization; I48.0 Paroxysmal atrial fibrillation; I71.4 Abdominal aortic aneurysm, without rupture; M10.9 Gout, unspecified; I25.2 Old myocardial infarction; E78.00 Pure hypercholesterolemia, unspecified; Z79.82 Long term (current) use of aspirin; Z79.01 Long term (current) use of anticoagulants; Z79.899 Other long term (current) drug therapy; Z98.42 Cataract extraction status, left eye; Z95.1 Presence of aortocoronary bypass graft; Z98.41 Cataract extraction status, right eye; Z85.038 Personal history of other malignant neoplasm of large intestine; Z90.49 Acquired absence of other specified parts of digestive tract; Z86.79 Personal history of other diseases of the circulatory system; Z86.010 Personal history of colon polyps
CPT/HCPCS: 36415; 71020; 78452; 80053; 80061; 82550; 82553; 83690; 83735; 83880; 84484; 85025; 85610; 85730; 93005; 93017; 93306; 99285

== ENCOUNTER 2017-02-22 14:48 | Observation (INO) | payer MEDICARE ==
[2017-02-22 15:43] LABS: Basophils # (A) 0.1 k/uL (0-0.2); Basophils % (A) 1 %; CH 30.7; CHCM 33.7; Eosinophils # (A) 0.4 k/uL (0-0.7); Eosinophils % (A) 5 %; HCT 47.5 % (39.0-53.0); HDW 2.48; HGB 15.8 gm/dL (13.0-17.5); Luc # (Auto) 0.13; Luc % (Auto) 2; Lymphocytes # (A) 1.4 k/uL (1.0-4.8); Lymphocytes % (A) 18 %; MCH 30.4 pg (25.0-35.0); MCHC 33.3 g/dL (31.0-37.0); MCV 91.4 fL (80.0-100.0); Monocytes # (A) 0.6 k/uL (0-1.0); Monocytes % (A) 7 %; Neutrophils # (A) 5.6 k/uL (1.3-7.7); Neutrophils % (A) 68 %; RDW 12.4 % (11.5-15.5); WBC 8.2 k/uL (3.8-10.6); WBC (Perox) 7.17
--- NOTE | 2017-02-22 15:44 | XR ---
EXAMINATION TYPE: XR chest 2V DATE OF EXAM: 02/22/2017 COMPARISON: 02/14/2017 TECHNIQUE: PA and lateral views submitted. HISTORY: Chest pain FINDINGS: The lungs are clear and there is no pneumothorax, pleural effusion, or focal pneumonia. Cardiomegal y and postoperative changes. Biapical pleural thickening. Arthropathy of the shoulders. Hyperinflatio n suggests COPD. Hypertrophic change of the spine. Stable 5 mm right middle lobe nodule. IMPRESSION: 1. Correlate for COPD and cardiomegaly. 2. Small 5 mm nodule right middle lobe stable.
[2017-02-22 15:53] LABS: ALT 38 U/L (21-72); AST 26 U/L (17-59); Alkaline Phosphatase 68 U/L (38-126); Anion Gap 9 mmol/L; Blood Urea Nitrogen 13 mg/dL (9-20); Calcium 9.6 mg/dL (8.4-10.2); Carbon Dioxide 29 mmol/L (22-30); Chloride 98 mmol/L (98-107); Glucose 101 mg/dL (74-99); Magnesium 1.6 mg/dL (1.6-2.3); Non-African American GFR(MDRD) >60 (>60 ml/min/1.73 sqM); Potassium 4.1 mmol/L (3.5-5.1); Sodium 136 mmol/L (137-145); Total Bilirubin 0.5 mg/dL (0.2-1.3); Total Protein 7.2 g/dL (6.3-8.2)
[2017-02-22 15:54] LABS: INR 2.7 (<1.2); Partial Thromboplastin Time 31.6 sec (22.0-30.0); Prothrombin Time 26.1 sec (9.0-12.0)
[2017-02-22 15:56] LABS: Creatine Kinase 48 U/L (55-170)
[2017-02-22 16:09] LABS: Creatine Kinase MB 1.7 ng/mL (0.0-2.4); Troponin I <0.012 ng/mL (0.000-0.034)
--- NOTE | 2017-02-22 16:19 | ED ---
General Adult HPI - General Source: patient, RN notes reviewed, old records reviewed Mode of arrival: wheelchair Limitations: no limitations <Shawn Dos Santos - Last Filed: 02/22/17 16:20> <Shawn Clark - Last Filed: 02/22/17 19:49> - General Chief complaint: Chest Pain Stated complaint: Chest Pain Time Seen by Provider: 02/22/17 15:02 - History of Present Illness Initial comments: 82-year-old male presents with left-sided chest pain. Patient was evaluated approximately one week ago for similar chest pain. He was discharged home. Pain has been present over the past 2-3 days. Also complains of left upper extremity pain. Patient states the pain does radiate to his back. He has history of CAD, remote history of CABG. Patient is currently on Coumadin for atrial fibrillation. No recent changes in medications. No cough. No fever chills. Patient denies shortness of breath. Pain is dull in nature. (Shawn Dos Santos) - Related Data Home Medications Medication Instructions Recorded Confirmed Acetaminophen Tab [Tylenol] 500 mg PO HS 06/10/14 02/22/17 Allopurinol 100 mg PO Q48H 06/10/14 02/22/17 Aspirin EC [Ecotrin Low Dose] 81 mg PO HS 06/10/14 02/22/17 Atenolol 25 mg PO BID 06/10/14 02/22/17 Donepezil HCl 10 mg PO HS 06/10/14 02/22/17 Multivitamins, Thera [Multivitamin 1 tab PO DAILY 06/10/14 02/22/17 (formulary)] Quinapril HCl [Accupril] 20 mg PO BID 06/10/14 02/22/17 Warfarin [Coumadin] 3.75 mg PO MOTH 06/11/14 02/22/17 Warfarin [Coumadin] 2.5 mg PO SUTUWEFRSA 03/24/16 02/22/17 Hydrochlorothiazide [Hydrodiuril] 25 mg PO DAILY 02/14/17 02/22/17 Simvastatin [Zocor] 40 mg PO HS 02/14/17 02/22/17 Isosorbide Mononitrate ER [Imdur] 30 mg PO BID 02/22/17 02/22/17 Nitroglycerin Sl Tabs [Nitrostat] 0.4 mg SUBLINGUAL Q5M PRN 02/22/17 02/22/17 Allergies Allergy/AdvReac Type Severity Reaction Status Date / Time No Known Allergies Allergy Verified 02/22/17 15:49 Review of Systems ROS Other: All systems not noted in ROS Statement are negative. <Shawn Dos Santos - Last Filed: 02/22/17 16:20> ROS Other: All systems not noted in ROS Statement are negative. <Shawn Clark - Last Filed: 02/22/17 19:49> ROS Statement: Those systems with pertinent positive or pertinent negative responses have been documented in the HPI. Past Medical History Past Medical History: Atrial Fibrillation, Cancer, Dementia, Hyperlipidemia, Hypertension Additional Past Medical History / Comment(s): HX OF COLON CANCER. HX OF CHF. GOUT, HAS AAA THAT IS BEING MONITORED. BEGINNING DEMENTIA. History of Any Multi-Drug Resistant Organisms: None Reported Past Surgical History: Bowel Resection, Coronary Bypass/CABG Additional Past Surgical History / Comment(s): CATARACTS, CABG 1996. Past Anesthesia/Blood Transfusion Reactions: No Reported Reaction, Motion Sickness Past Psychological History: No Psychological Hx Reported Smoking Status: Never smoker Past Alcohol Use History: Rare Past Drug Use History: None Reported - Past Family History Brother(s) Family Medical History: Cancer Additional Family Medical History / Comment(s): PROSTATE CA <Shawn Dos Santos - Last Filed: 02/22/17 16:20> General Exam Limitations: no limitations General appearance: alert, in no apparent distress Head exam: Present: atraumatic, normocephalic Eye exam: Present: normal appearance, PERRL ENT exam: Present: normal exam Neck exam: Present: normal inspection. Absent: tenderness, meningismus Respiratory exam: Present: normal lung sounds bilaterally. Absent: respiratory distress Cardiovascular Exam: Present: regular rate, irregular rhythm GI/Abdominal exam: Present: soft. Absent: distended, tenderness Extremities exam: Present: normal inspection, full ROM. Absent: tenderness Back exam: Present: normal inspection. Absent: tenderness Neurological exam: Present: alert, oriented X3 Psychiatric exam: Present: normal affect, normal mood Skin exam: Present: warm, dry, intact. Absent: cyanosis, diaphoretic <Shawn Dos Santos - Last Filed: 02/22/17 16:20> Course <Shawn Dos Santos - Last Filed: 02/22/17 16:20> <Shawn Clark - Last Filed: 02/22/17 19:49> Vital Signs 02/22/17 02/22/17 02/22/17 14:52 15:38 16:17 Temperature 97.1 F L Pulse Rate 40 L 72 73 Respiratory 18 16 16 Rate Blood Pressure 148/100 155/70 144/66 O2 Sat by Pulse 98 99 99 Oximetry 02/22/17 02/22/17 02/22/17 17:06 18:09 19:04 Temperature 97.9 F Pulse Rate 88 86 107 H Respiratory 16 16 18 Rate Blood Pressure 174/88 160/79 155/101 O2 Sat by Pulse 100 99 98 Oximetry - Reevaluation(s) Reevaluation #1: 02/22/17 1700 Patient's care is signed out to Dr. Clark awaiting CT angiography at 1700. (Shawn Dos Santos) Reevaluation #2: 02/22/17 19:48 The patient's care was endorsed to me by Dr. Dos Santos pending CAT scan results CT showed no evidence of PE there was evidence of the aneurysm of the aorta that were previously seen. I did discuss the case with Dr. Enrique the patient will be admitted for reevaluation by cardiology (Shawn Clark) EKG Findings - EKG Comments: EKG Findings:: EKG shows atrial flutter, with variable AV block, ventricular rate 73, QRS duration 116, QTC 420 oh significant change compared to EKG from 7 days prior <Shawn Dos Santos - Last Filed: 02/22/17 16:20> Medical Decision Making - Lab Data Result diagrams: 02/22/17 15:29 02/22/17 15:29 <Shawn Dos Santos - Last Filed: 02/22/17 16:20> - Lab Data Result diagrams: 02/22/17 15:29 02/22/17 15:29 <Shawn Clark - Last Filed: 02/22/17 19:49> - Medical Decision Making 82-year-old male presenting with chest pain, left arm pain, and pain rating to his left scapula. Patient has dementia and is not able to give a detailed history of his pain. He was evaluated for chest pain one week prior. Chest x- ray obtained, which was COPD, cardiomegaly, 5 mm right lower lobe nodule. INR is therapeutic. Hemoglobin is stable. No elevated white blood cell,. D-dimer is negative. Creatinine normal 0.9. Patient's pain does travel to the back, and he is a poor historian, CT angiography will be obtained to rule out dissection. (Shawn Dos Santos) - Lab Data Lab Results 02/22/17 02/22/17 02/22/17 Range/Units 15:29 15:29 15:29 WBC 8.2 (3.8-10.6) k/uL RBC 5.20 (4.30-5.90) m/uL Hgb 15.8 (13.0-17.5) gm/dL Hct 47.5 (39.0-53.0) % MCV 91.4 (80.0-100.0) fL MCH 30.4 (25.0-35.0) pg MCHC 33.3 (31.0-37.0) g/dL RDW 12.4 (11.5-15.5) % Plt Count 236 (150-450) k/uL Neutrophils % 68 % Lymphocytes % 18 % Monocytes % 7 % Eosinophils % 5 % Basophils % 1 % Neutrophils # 5.6 (1.3-7.7) k/uL Lymphocytes # 1.4 (1.0-4.8) k/uL Monocytes # 0.6 (0-1.0) k/uL Eosinophils # 0.4 (0-0.7) k/uL Basophils # 0.1 (0-0.2) k/uL PT (9.0-12.0) sec INR (<1.2) APTT (22.0-30.0) sec D-Dimer (<0.60) mg/L FEU Sodium 136 L (137-145) mmol/L Potassium 4.1 (3.5-5.1) mmol/L Chloride 98 (98-107) mmol/L Carbon Dioxide 29 (22-30) mmol/L Anion Gap 9 mmol/L BUN 13 (9-20) mg/dL Creatinine 0.90 (0.66-1.25) mg/dL Est GFR (MDRD) Af Amer >60 (>60 ml/min/1.73 sqM) Est GFR (MDRD) Non-Af >60 (>60 ml/min/1.73 sqM) Glucose 101 H (74-99) mg/dL Calcium 9.6 (8.4-10.2) mg/dL Magnesium 1.6 (1.6-2.3) mg/dL Total Bilirubin 0.5 (0.2-1.3) mg/dL AST 26 (17-59) U/L ALT 38 (21-72) U/L Alkaline Phosphatase 68 (38-126) U/L Total Creatine Kinase 48 L (55-170) U/L CK-MB (CK-2) 1.7 (0.0-2.4) ng/mL CK-MB (CK-2) Rel Index 3.5 Troponin I <0.012 (0.000-0.034) ng/mL NT-Pro-B Natriuret Pep pg/mL Total Protein 7.2 (6.3-8.2) g/dL Albumin 4.6 (3.5-5.0) g/dL 02/22/17 02/22/17 Range/Units 15:29 15:29 WBC (3.8-10.6) k/uL RBC (4.30-5.90) m/uL Hgb (13.0-17.5) gm/dL Hct (39.0-53.0) % MCV (80.0-100.0) fL MCH (25.0-35.0) pg MCHC (31.0-37.0) g/dL RDW (11.5-15.5) % Plt Count (150-450) k/uL Neutrophils % % Lymphocytes % % Monocytes % % Eosinophils % % Basophils % % Neutrophils # (1.3-7.7) k/uL Lymphocytes # (1.0-4.8) k/uL Monocytes # (0-1.0) k/uL Eosinophils # (0-0.7) k/uL Basophils # (0-0.2) k/uL PT 26.1 H (9.0-12.0) sec INR 2.7 H (<1.2) APTT 31.6 H (22.0-30.0) sec D-Dimer 0.40 (<0.60) mg/L FEU Sodium (137-145) mmol/L Potassium (3.5-5.1) mmol/L Chloride (98-107) mmol/L Carbon Dioxide (22-30) mmol/L Anion Gap mmol/L BUN (9-20) mg/dL Creatinine (0.66-1.25) mg/dL Est GFR (MDRD) Af Amer (>60 ml/min/1.73 sqM) Est GFR (MDRD) Non-Af (>60 ml/min/1.73 sqM) Glucose (74-99) mg/dL Calcium (8.4-10.2) mg/dL Magnesium (1.6-2.3) mg/dL Total Bilirubin (0.2-1.3) mg/dL AST (17-59) U/L ALT (21-72) U/L Alkaline Phosphatase (38-126) U/L Total Creatine Kinase (55-170) U/L CK-MB (CK-2) (0.0-2.4) ng/mL CK-MB (CK-2) Rel Index Troponin I (0.000-0.034) ng/mL NT-Pro-B Natriuret Pep 511 pg/mL Total Protein (6.3-8.2) g/dL Albumin (3.5-5.0) g/dL Disposition <Shawn Dos Santos - Last Filed: 02/22/17 16:20> <Shawn Clark - Last Filed: 02/22/17 19:49> Clinical Impression: Unstable angina pectoris, Chest pain Disposition: ADMITTED IP TO THIS [facility] Condition: Stable Referrals: Judah Enrique MD [Primary Care Provider] - 1-2 days
[2017-02-22] MEDS ORDERED: RX INFO: IV CONTRAST WAS GIVEN 1 EACH MISC MISCELLANE PRN (16:31)
--- NOTE | 2017-02-22 18:56 | CT ---
EXAMINATION TYPE: CT angio chest DATE OF EXAM: 02/22/2017 5:13 PM COMPARISON: NONE HISTORY: chest and left arm pain CT DLP: 1385 mGycm Automated exposure control for dose reduction was used. CONTRAST: CTA scan of the thorax is performed with IV Contrast, patient injected with 100 mL of Omnipaque 350, pulmonary embolism protocol. There are 3-D post processed images.. FINDINGS: The lungs are clear of consolidation. There is mild linear density at the lung bases consistent with scarring and subsegmental atelectasis. There is no pleural effusion. There is no evidence of a pulmon ramón mass. There is no pericardial effusion. Thoracic aorta is atheromatous. There is mild aneurysm of the thoracic aorta. Ascending aorta measures 4.1 cm. There is no sign of dissection. There is no mediastinal adenopathy. There are no hilar masses. I see no filling defects in the pulmon ramón arteries. There are spondylotic changes in the thoracic spine. IMPRESSION: ATHEROSCLEROTIC VASCULAR DISEASE. 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 NO EVIDENCE OF PULMONARY EMBOLI SM. MILD CARDIOMEGALY. THERE IS ALSO ANEURYSM OF THE ABDOMINAL AORTA THAT MEASURES UP TO 4.6 CM. THE EXTENT OF THE ANEURYSM IS NOT INCLUDED ON THIS EXAM.
[2017-02-22] MEDS ORDERED: NITROGLYCERIN SL TABS 0.4 MG TAB SUBLINGUAL PRN (19:50)
[2017-02-22] MEDS ORDERED: SODIUM CHLORIDE 0.9% 1,000 ML IV SCH (20:00)
[2017-02-22] MEDS ORDERED: WARFARIN 2.5 MG TAB PO SCH (20:15)
[2017-02-22] MEDS ORDERED: ACETAMINOPHEN TAB 500 MG TAB PO SCH (21:00)
[2017-02-22] MEDS ORDERED: ATORVASTATIN 20 MG TAB PO SCH (21:00)
[2017-02-22] MEDS ORDERED: DONEPEZIL 10 MG TAB PO SCH (21:00)
--- NOTE | 2017-02-22 21:05 | P.HPIM ---
History of Present Illness Chief complaint Chest pain History of present illness The patient's a 82-year-old gentleman who has underlying history of coronary artery disease but also element of underlying dementia. Patient presented with recurrent left chest and arm and shoulder discomfort. Presently he relates that to the lateral shoulder area and posterior shoulder. Apparently he has also been radiating to the back. No specific injury. Patient was actually hospitalized earlier in the month and did have a positive stress test. Discussion was held apparently with cardiology and patient and patient's , further workup somewhat tempered by patient's underlying dementia and nature of the pain. Medical treatment at that time was to be continued. Isordil and beta blockers were increased as an outpatient but patient apparently has had recurrence of the pain the last 24-48 hours. Past medical history Coronary artery disease and previous bypass surgery Hypertension History of gout Hypercholesterolemia History of abdominal aortic aneurysm Alzheimer's dementia Paroxysmal atrial fibrillation History of colonic polyps Previous coronary artery bypass surgery and previous bilateral eye surgeries and previous right colectomy. No known ALLERGIES Home medications Allopurinol 100 mg every 2 days Acetaminophen 500 mg at at bedtime Coumadin 3.75 mg Tuesday and with 2.5 mg all other days Zocor 40 mg at at bedtime Nitro stat 0.4 mg sublingual when necessary Aricept 10 mg at at bedtime Aspirin 81 mg at at bedtime Accupril 20 mg twice a day Multiple vitamin daily Imdur 30 mg twice a day Hydrochlorothiazide 25 mg daily Atenolol 25 mg twice a day. Review of systems No fever or chills or cough. Chest pain as described in history of present illness No headache or visual disturbances. No nausea or vomiting. No new urinary or bowel symptoms. No unusual edema. Social history No history of smoking. No alcohol usage. He lives locally with his who is primary support person. Family history noncontributory Physical examination Patient sitting up at the side of the bed. In no acute distress. Vital signs reveal temperature of 97.7 with a pulse of 112. Respirations 16. Blood pressure was 172/91 but subsequently down to 143/93. 98% saturation on 2 L nasal cannula. Head is atraumatic. Extraocular movements intact. Neck supple without adenopathy or bruits. Lungs were clear to auscultation. Heart tones were slightly irregular without murmurs or rubs appreciated. Abdomen is nontender. No rebound guarding or masses. No organomegaly. No unusual edema. Genital and rectal exam deferred. Neurologically he is alert. No focal weakness. Cranial nerves intact. Memory is off. He does not remember that he was here a little over week ago. Doesn't specifically know my name but he understands that I am his physician. Laboratory White count 8.2 with hemoglobin 15.8 and platelet count 236. INR 2.7. D-dimer 0.4. Sodium 136 with potassium 4.1. BUN of 13 with creatinine 0.9 given him a GFR greater than 60. Blood sugar 101. Troponin less than 0.012. CK 48 EKG Atrial fibrillation with controlled response and no definite ischemic ST-T wave changes. Chest x-ray Consistent with COPD and cardiomegaly. 5 mm nodule right middle lobe stable. Chest CT angio 4.1 cm aneurysm of the ascending aorta. And 4.6 cm abdominal aorta aneurysm. No definite evidence of dissection. No evidence of pulmonary embolus. Impressions Patient with recurrent left chest and shoulder discomfort. Some element of the pain appears to be related to shoulder movement. Other pain is more stable. Not always reproducible. Patient does have underlying coronary artery disease and dementia. Other past medical history as delineated in the past medical history noted above. Plans The patient does have recent history of abnormal stress test. We'll consult cardiology for review. Keep patient nothing by mouth in the morning until their evaluation. Further recommendations pending their clinical assessment. Follow-up EKG and enzymes. Past Medical History Past Medical History: Atrial Fibrillation, Cancer, Dementia, Hyperlipidemia, Hypertension Additional Past Medical History / Comment(s): HX OF COLON CANCER. HX OF CHF. GOUT, HAS AAA THAT IS BEING MONITORED. BEGINNING DEMENTIA. History of Any Multi-Drug Resistant Organisms: None Reported Past Surgical History: Bowel Resection, Coronary Bypass/CABG Additional Past Surgical History / Comment(s): CATARACTS, CABG 1996. Past Anesthesia/Blood Transfusion Reactions: No Reported Reaction, Motion Sickness Past Psychological History: No Psychological Hx Reported Smoking Status: Never smoker Past Alcohol Use History: Rare Past Drug Use History: None Reported - Past Family History Brother(s) Family Medical History: Cancer Additional Family Medical History / Comment(s): PROSTATE CA Medications and Allergies Home Medications Medication Instructions Recorded Confirmed Type Acetaminophen Tab [Tylenol] 500 mg PO HS 06/10/14 02/22/17 History Allopurinol 100 mg PO Q48H 06/10/14 02/22/17 History Aspirin EC [Ecotrin Low Dose] 81 mg PO HS 06/10/14 02/22/17 History Atenolol 25 mg PO BID 06/10/14 02/22/17 History Donepezil HCl 10 mg PO HS 06/10/14 02/22/17 History Multivitamins, Thera [Multivitamin 1 tab PO DAILY 06/10/14 02/22/17 History (formulary)] Quinapril HCl [Accupril] 20 mg PO BID 06/10/14 02/22/17 History Warfarin [Coumadin] 3.75 mg PO MOTH 06/11/14 02/22/17 History Warfarin [Coumadin] 2.5 mg PO SUTUWEFRSA 03/24/16 02/22/17 History Hydrochlorothiazide [Hydrodiuril] 25 mg PO DAILY 02/14/17 02/22/17 History Simvastatin [Zocor] 40 mg PO HS 02/14/17 02/22/17 History Isosorbide Mononitrate ER [Imdur] 30 mg PO BID 02/22/17 02/22/17 History Nitroglycerin Sl Tabs [Nitrostat] 0.4 mg SUBLINGUAL Q5M PRN 02/22/17 02/22/17 History Allergies Allergy/AdvReac Type Severity Reaction Status Date / Time No Known Allergies Allergy Verified 02/22/17 15:49 Physical Exam Vitals: Vital Signs Temp Pulse Pulse Resp BP BP Pulse Ox 02/22/17 20:40 97.7 F 112 H 16 143/93 98 02/22/17 20:13 97.5 F L 102 H 18 172/91 99 02/22/17 19:04 97.9 F 107 H 18 155/101 98 02/22/17 18:09 86 16 160/79 99 02/22/17 17:06 88 16 174/88 100 02/22/17 16:17 73 16 144/66 99 02/22/17 15:38 72 16 155/70 99 02/22/17 14:52 97.1 F L 40 L 18 148/100 98 Intake and Output 02/22/17 02/22/17 02/22/17 06:59 14:59 22:59 Other: Weight 99.337 kg Patient Weight 02/23/17 06:59 Weight 99.337 kg Results CBC & Chem 7: 02/22/17 15:29 02/22/17 15:29 Labs: Abnormal Lab Results - Last 24 Hours (Table) 02/22/17 02/22/17 02/22/17 Range/Units 15:29 15:29 15:29 PT 26.1 H (9.0-12.0) sec INR 2.7 H (<1.2) APTT 31.6 H (22.0-30.0) sec Sodium 136 L (137-145) mmol/L Glucose 101 H (74-99) mg/dL Total Creatine Kinase 48 L (55-170) U/L
[2017-02-22 22:17] LABS: Creatine Kinase 87 U/L (55-170)
[2017-02-22] MEDS: LISINOPRIL 20 MG TAB PO SCH (22:20)
[2017-02-22] MEDS: ATENOLOL 25 MG TAB PO SCH (22:20)
[2017-02-22] MEDS: ISOSORBIDE MONONITRATE ER 30 MG TAB.ER.24H PO SCH (22:20)
[2017-02-22 22:30] LABS: Creatine Kinase MB 2.2 ng/mL (0.0-2.4); Troponin I <0.012 ng/mL (0.000-0.034)
[2017-02-23 04:03] LABS: Cholesterol 109 mg/dL (<200); HDL Cholesterol 40 mg/dL (40-60)
[2017-02-23 04:18] LABS: Creatine Kinase MB 2.2 ng/mL (0.0-2.4); Troponin I 0.019 ng/mL (0.000-0.034)
--- NOTE | 2017-02-23 08:21 | P.PN ---
Progress Note - Text The patient is an 82-year-old gentleman with history of coronary artery disease and also early Alzheimer's dementia. Patient represented with left chest and arm pain that apparently radiated to the back. he had been hospitalized earlier last month and did have somewhat abnormal stress testing at that time. Presently he still complains of some left shoulder and arm pain associated with elevating the arm. is present this morning. Vital signs reveal temperature 97.6 with a pulse of 58 and respirations 16. Blood pressure is 108/55 and he is 96% saturated on room air. Lung and heart exam was clear. No anterior chest wall discomfort with pressure. No focal neurological changes. Laboratory values revealed some elevation of CK but only up to 108. Still within normal range. Troponins also have increased but remained below 0.019. Cholesterol values are favorable. Impressions and plans This patient with coronary artery disease and underlying Alzheimer's has recurrent left chest and shoulder pain. Has had a previous positive stress test last month. Seems to have some of his pain related to the left shoulder and musculoskeletal pain. We'll await cardiology opinion regarding possible further evaluation/workup. Discussed with the and patient at bedside this morning.
[2017-02-23 08:32] VITALS: RESP 18
[2017-02-23] MEDS ORDERED: ASPIRIN 325 MG TAB PO SCH (09:00)
[2017-02-23] MEDS ORDERED: ALLOPURINOL 100 MG TAB PO SCH (09:00)
[2017-02-23] MEDS ORDERED: HYDROCHLOROTHIAZIDE 25 MG TAB PO SCH (09:00)
[2017-02-23] MEDS: ISOSORBIDE MONONITRATE ER 30 MG TAB.ER.24H PO SCH (09:49)
[2017-02-23] MEDS: ATENOLOL 25 MG TAB PO SCH (09:49)
[2017-02-23] MEDS: LISINOPRIL 20 MG TAB PO SCH (09:50)
[2017-02-23 11:39] VITALS: BP 135/72; PULSE 75; TEMP 97.5
[2017-02-23] MEDS ORDERED: MULTIVITAMINS, THERA 1 EACH TAB PO SCH (12:00)
--- NOTE | 2017-02-23 13:42 | P.CRDCN ---
History of Present Illness Consult date: 02/23/17 History of present illness: This is an 82-year-old male with past medical history significant for CABG, CAD with totally occluded saphenous vein graft, patent HINDS to LAD with RCA and circumflex free of disease as of 2008. He also has hypertension, paroxysmal atrial fibrillation and ischemic cardiomyopathy with systolic dysfunction ejection fraction 45%. He follows regularly with Dr. KEE Enamorado as an outpatient. He presented to the hospital with complaints of left shoulder, back and arm pain. He states this pain has been ongoing and is worse with movement of the arm. He recently presented to the hospital last week with similar complaints and underwent a Lexiscan stress test. Lexiscan showed possible ischemic defect of the anterior lateral left ventricular wall. At that time it was discussed whether or not the patient should move forward with cardiac catheterization. This was discussed at length with the patient and his and it was determined due to the patient's current state of health as well as the presenting symptoms not being suggestive of coronary syndrome medical management was optimal. Unfortunately he went home and continued to experience pains in his left shoulder. Again his pain is felt to be merrily musculoskeletal in nature. EKG reveals atrial flutter with controlled ventricular response. Chest x-rays consistent with COPD. No acute cardiopulmonary process present. Cardiac enzymes negative 3, potassium 4.1, magnesium 1.6, d-dimer negative, INR 2.7, hemoglobin 15.8, platelets 236. Current cardiac medications include Coumadin, Zocor 40 mg daily, Accupril 20 mg twice a day, Imdur 30 mg twice a day, hydrochlorothiazide 25 mg daily, donepezil 10 mg daily, atenolol 25 mg twice a day and aspirin 81 mg daily. Review of Systems CONSTITUTIONAL: Denies fever. Denies chills. EYES: Denies blurred vision. Denies vision changes. Denies eye pain. EARS, NOSE, MOUTH & THROAT: Denies headache. Denies sore throat. Denies ear pain. CARDIOVASCULAR: Denies chest pain. Denies shortness of breath. Denies orthopnea. Denies PND. Denies palpitations. RESPIRATORY: Denies cough. GASTROINTESTINAL: Denies abdominal pain. Denies diarrhea. Denies constipation. Denies nausea. Denies vomitng. MUSCULOSKELETAL: Denies myalgias. INTEGUMENTARY: Denies pruitis. Denies rash. NEUROLOGIC: Denies numbness. Denies tingling. Denies weakness. PSYCHIATRIC: Denies anxiety. Denies depression. ENDOCRINE: Denies fatigue. Denies weight change. Denies polydipsia. Denies polyurina. GENITOURINARY: Denies burning, hematuria or urgency with micturation. HEMATOLOGIC: Denies history of anemia. Denies bleeding. Extremities: Complains of left shoulder and upper back pain worse with movement. Past Medical History Past Medical History: Atrial Fibrillation, Cancer, Dementia, Hyperlipidemia, Hypertension Additional Past Medical History / Comment(s): HX OF COLON CANCER. HX OF CHF. GOUT, HAS AAA THAT IS BEING MONITORED. BEGINNING DEMENTIA. History of Any Multi-Drug Resistant Organisms: None Reported Past Surgical History: Bowel Resection, Coronary Bypass/CABG Additional Past Surgical History / Comment(s): CATARACTS, CABG 1996. Past Anesthesia/Blood Transfusion Reactions: No Reported Reaction, Motion Sickness Past Psychological History: No Psychological Hx Reported Smoking Status: Unknown if ever smoked Past Alcohol Use History: Rare Past Drug Use History: None Reported - Past Family History Brother(s) Family Medical History: Cancer Additional Family Medical History / Comment(s): PROSTATE CA Medications and Allergies Home Medications Medication Instructions Recorded Confirmed Type Acetaminophen Tab [Tylenol] 500 mg PO HS 06/10/14 02/22/17 History Allopurinol 100 mg PO Q48H 06/10/14 02/22/17 History Aspirin EC [Ecotrin Low Dose] 81 mg PO HS 06/10/14 02/22/17 History Atenolol 25 mg PO BID 06/10/14 02/22/17 History Donepezil HCl 10 mg PO HS 06/10/14 02/22/17 History Multivitamins, Thera [Multivitamin 1 tab PO DAILY 06/10/14 02/22/17 History (formulary)] Quinapril HCl [Accupril] 20 mg PO BID 06/10/14 02/22/17 History Warfarin [Coumadin] 3.75 mg PO MOTH 06/11/14 02/22/17 History Warfarin [Coumadin] 2.5 mg PO SUTUWEFRSA 03/24/16 02/22/17 History Hydrochlorothiazide [Hydrodiuril] 25 mg PO DAILY 02/14/17 02/22/17 History Simvastatin [Zocor] 40 mg PO HS 02/14/17 02/22/17 History Isosorbide Mononitrate ER [Imdur] 30 mg PO BID 02/22/17 02/22/17 History Nitroglycerin Sl Tabs [Nitrostat] 0.4 mg SUBLINGUAL Q5M PRN 02/22/17 02/22/17 History Allergies Allergy/AdvReac Type Severity Reaction Status Date / Time No Known Allergies Allergy Verified 02/22/17 15:49 Physical Exam Vitals: Vital Signs Temp Pulse Pulse Resp BP BP Pulse Ox 02/23/17 11:38 97.5 F L 75 18 135/72 98 02/23/17 10:19 95 02/23/17 08:00 97.9 F 58 L 18 135/60 96 02/23/17 04:00 16 02/23/17 03:53 97.6 F 58 L 16 108/55 96 02/23/17 00:13 97.6 F 64 16 140/69 96 02/23/17 00:00 16 02/22/17 20:40 97.7 F 112 H 16 143/93 98 02/22/17 20:13 97.5 F L 102 H 18 172/91 99 02/22/17 19:04 97.9 F 107 H 18 155/101 98 02/22/17 18:09 86 16 160/79 99 02/22/17 17:06 88 16 174/88 100 02/22/17 16:17 73 16 144/66 99 02/22/17 15:38 72 16 155/70 99 02/22/17 14:52 97.1 F L 40 L 18 148/100 98 Intake and Output 02/22/17 02/23/17 02/23/17 22:59 06:59 14:59 Other: Voiding Method Toilet Toilet # Voids 1 GENERAL: This is a 82-year-old male in no apparent distress at the time of my examination. HEENT: Head is atraumatic, normocephalic. Pupils are equal, round. Sclerae anicteric. Conjunctivae are clear. Mucous membranes of the mouth are moist. Neck is supple. There is no jugular venous distention. No carotid bruit is heard. LUNGS: Clear to auscultation no wheezes, rales or rhonchi. No chest wall tenderness is noted on palpation or with deep breathing. HEART: Regular rate and rhythm without murmurs, rubs or gallops. S1 and S2 heard. ABDOMEN: Soft, nontender. Bowel sounds are heard. No organomegaly noted. EXTREMITIES: 2+ peripheral pulses with no evidence of peripheral edema and no calf tenderness noted. NEUROLOGIC: Patient is awake, alert and oriented x3. Results 02/22/17 15:29 02/22/17 15:29 Cardiac Enzymes 02/22/17 02/22/17 02/22/17 Range/Units 15:29 15: 21:45 AST 26 (17-59) U/L CK-MB (CK-2) 1.7 2.2 (0.0-2.4) ng/mL Troponin I <0.012 <0.012 (0.000-0.034) ng/mL 02/23/17 Range/Units 03:14 AST (17-59) U/L CK-MB (CK-2) 2.2 (0.0-2.4) ng/mL Troponin I 0.019 (0.000-0.034) ng/mL Coagulation 02/22/17 Range/Units 15:29 PT 26.1 H (9.0-12.0) sec APTT 31.6 H (22.0-30.0) sec Lipids 02/23/17 Range/Units 03:14 Triglycerides 93 (<150) mg/dL Cholesterol 109 (<200) mg/dL HDL Cholesterol 40 (40-60) mg/dL CBC 02/22/17 Range/Units 15:29 WBC 8.2 (3.8-10.6) k/uL RBC 5.20 (4.30-5.90) m/uL Hgb 15.8 (13.0-17.5) gm/dL Hct 47.5 (39.0-53.0) % Plt Count 236 (150-450) k/uL Comprehensive Metabolic Panel 02/22/17 Range/Units 15:29 Sodium 136 L (137-145) mmol/L Potassium 4.1 (3.5-5.1) mmol/L Chloride 98 (98-107) mmol/L Carbon Dioxide 29 (22-30) mmol/L BUN 13 (9-20) mg/dL Creatinine 0.90 (0.66-1.25) mg/dL Glucose 101 H (74-99) mg/dL Calcium 9.6 (8.4-10.2) mg/dL AST 26 (17-59) U/L ALT 38 (21-72) U/L Alkaline Phosphatase 68 (38-126) U/L Total Protein 7.2 (6.3-8.2) g/dL Albumin 4.6 (3.5-5.0) g/dL Intake and Output 02/22/17 02/23/17 02/23/17 22:59 06:59 14:59 Other: Voiding Method Toilet Toilet # Voids 1 02/22/17 15:29 02/22/17 15:29 Assessment and Plan Assessment: ASSESSMENT 1. Left shoulder pain, musculoskeletal in nature 2. History of coronary artery disease with previous CABG 3. Hypertension 4. Dyslipidemia 5. Paroxysmal atrial fibrillation/flutter, chronic on long-term anticoagulation 6. Dementia PLAN Given the presentation of the symptoms we recommend the patient be discharged home to follow up with Dr. Enamorado at previously scheduled appointment. This was discussed with Dr. Wolfe and all are in agreement. Thank you kindly for this consultation. Nurse Practitioner note has been reviewed, I agree with a documented findings and plan of care. Patient was seen and examined.
[2017-02-24] MEDS ORDERED: WARFARIN 2.5 MG TAB PO SCH (18:00)
--- NOTE | 2017-02-25 07:21 | DS ---
DISCHARGE SUMMARY Mr. Alvarado is an 82-year-old gentleman admitted to observation on February 22. He is an 82-year-old gentleman who presented to the emergency room with chest, left shoulder and left back discomfort. Patient has a known history of coronary artery disease with previous coronary artery bypass back in 2008. He has ischemic cardiomyopathy with an ejection fraction of 45%, and paroxysmal atrial fibrillation. He also has an element of underlying Alzheimer's disease. Patient's EKG showed atrial flutter with controlled response without acute ischemic changes. Laboratory values did not reveal increase in his troponins or CK values. The patient did have imaging studies with a chest x-ray which showed no acute process and also had a CT angiogram in the ER because of the pain radiating to the back. He does have an aortic aneurysm and a 4.1 cm ascending aortic aneurysm, but no evidence of pulmonary embolus or dissection. Consultations were obtained with Cardiology. Patient was monitored. He was already on Eliquis for his atrial fibrillation. His pain apparent on my examination and that of [facility], Dr. Gonzalez to be more related to movement of the left shoulder and Cardiology discussed this with patient and patient's and it was felt at this point, patient would be best served by any further cardiac invasive procedures and that a trial of outpatient treatment with corticosteroids and analgesics and possible further treatment if not better related to the left shoulder was more in order and at this time patient will be discharged back to home. To his local pharmacy, tapering doses of prednisone and tramadol for pain were sent. He is to continue his home medications that included his allopurinol 100 mg every other day, acetaminophen 500 mg at bedtime and as needed for pain. He is on Coumadin 2.5 daily with 3.75 on Mondays and and his INRs were satisfactory. Zocor was 40 mg at bedtime, nitroglycerin 0.4 sublingual p.r.n. for angina, Aricept 10 mg at bedtime, aspirin 81 mg at bedtime, quinapril 20 mg twice a day, multiple vitamin daily, Imdur 30 mg twice a day, HydroDIURIL 25 mg daily and atenolol 25 mg twice a day. Once again, follow up outpatient in the office for possible addition of further shoulder x-rays, physical therapy or orthopedic referral if not improving after his course of corticosteroids. FINAL DISCHARGE DIAGNOSIS: Left chest and shoulder pain radiating to the back consistent with left shoulder tendinitis and musculoskeletal pain as opposed to underlying cardiac pain. Patient does have underlying though history of coronary artery disease and previous bypass surgery. He does have underlying history of Alzheimer's disease, hypertension, gout, hypercholesterolemia, aortic and thoracic abdominal aneurysms without any evidence of dissection, and also history of paroxysmal atrial fibrillation, history of colonic polyps and also previous right colectomy. ACTIVITIES: As tolerated. Follow up in the office in 7 to 10 days. MMODL / MURRAYN: [id number] / MTDD
== END 2017-02-23 11:58 | disposition home or self-care (01) ==
LOC: EC 14:48 → 3OBS 19:50
PROVIDERS: ADMIT Internal Medicine; ATTEND Internal Medicine
DX: R07.89 Other chest pain (principal); M25.512 Pain in left shoulder; M54.9 Dorsalgia, unspecified; I25.119 Atherosclerotic heart disease of native coronary artery with unspecified angina pectoris; Z95.1 Presence of aortocoronary bypass graft; I11.0 Hypertensive heart disease with heart failure; I50.20 Unspecified systolic (congestive) heart failure; I25.5 Ischemic cardiomyopathy; I71.2 Thoracic aortic aneurysm, without rupture; E78.00 Pure hypercholesterolemia, unspecified; I48.0 Paroxysmal atrial fibrillation; I48.92 Unspecified atrial flutter; M10.9 Gout, unspecified; G30.9 Alzheimer's disease, unspecified; R94.39 Abnormal result of other cardiovascular function study; F02.80 Dementia in other diseases classified elsewhere, unspecified severity, without behavioral disturbance, psychotic disturbance, mood disturbance, and anxiety; Z79.82 Long term (current) use of aspirin; Z79.01 Long term (current) use of anticoagulants; Z79.899 Other long term (current) drug therapy; Z90.49 Acquired absence of other specified parts of digestive tract; Z86.010 Personal history of colon polyps; Z85.038 Personal history of other malignant neoplasm of large intestine
CPT/HCPCS: 99285 ×2; 36415; 93005; 85379; 83880; 80061; 80053; 82550 ×2; 82553 ×2; 83735; 84484 ×2; 85025; 85610; 85730; 71020; 71275; G0378 ×2; Q9967

== ENCOUNTER → 2018-01-24 | Outpatient (CLI) | payer MEDICARE ==
[2018-01-24 07:10] LABS: Blood Urea Nitrogen 13 mg/dL (9-20)
--- NOTE | 2018-01-24 07:54 | US ---
EXAMINATION TYPE: US duplex aorta DATE OF EXAM: 01/24/2018 COMPARISON: CT scan dated 01/10/2014 CLINICAL HISTORY: I71.1 thoracic aortic aneurysm. EXAM MEASUREMENTS: Abdominal Aorta: Proximal: 2.5 Mid: 2.8 Distal: 4.3 Bifurcation: Rt: 1.2cm Lt: 1.1cm Extensive midline bowel gas. Proximal aorta not well seen. AAA measuring 4.3 x 4.8 x 4.4cm, difficult to assess length, there appears to be extensive plaque wi thin. There is atherosclerotic plaque. IMPRESSION: 1. Findings compatible with a 4.3 x 4.8 x 4.4 cm abdominal aortic aneurysm. Recommend follow-up CT sc an given appears to be increased in size from prior CT scan.
--- NOTE | 2018-01-24 09:27 | CT ---
EXAMINATION TYPE: CT angio chest DATE OF EXAM: 01/24/2018 COMPARISON: 02/22/2017 HISTORY: 82-year-old male follow-up thoracic aortic aneurysm TECHNIQUE: Contiguous axial scanning of the chest performed without and with IV Contrast, patient inj ected with 100 mL of Isovue 370. Coronal/sagittal MIP reconstructions performed. 3-D reconstructions generated on a dedicated independent workstation. CT DLP: 922.9 mGycm Automated exposure control for dose reduction was used. FINDINGS: Heart borderline to mildly enlarged. Multiple CABG clips are present in the mediastinum. Aortic root mildly aneurysmal at 4.0 cm versus 4.1 cm, previously. Ascending aorta mildly aneurysmal at 4.0 cm, unchanged. Bovine configuration to the aortic arch. The proximal arch measures 3.7 cm versus 3.8 cm, previously. The upper descending thoracic aorta measures 3.3 cm versus 3.4 cm, previously. Mid descending thoracic aorta measures 3.1 cm, unchanged. The abdominal aorta near the thoracoabdominal junction measures 2.9 cm versus 3.0 cm, previously. No evidence for acute intramural hematoma. No aortic dissection. There is some subareolar nodularity on the left measuring 1.2 cm versus 7 mm, previously. This probab ly represents gynecomastia and should be correlated with physical exam findings. No thoracic lymphadenopathy. Mildly enlarged caliber to the main right and left pulmonary arteries are 2.6 and 2.7 cm, respectivel y, suggesting underlying pulmonary arterial hypertension. Calcified right hilar lymph nodes compatible with prior granulomatous disease. Mild emphysema and scattered minimal interstitial changes in nodularity such as in the right upper lo be on axial image 21, unchanged. Stable couple calcified granulomas in the right midlung and strandy atelectasis at the lung bases. No consolidation or pleural effusion. Small to moderate-sized hiatal hernia. Partially visualized cyst medial left kidney was also partiall y visualized previously. Moderate arthroscopic calcifications within the abdominal aorta. An patient' s known AAA is not included on the study. Calcified granulomas in the spleen. Bones: Bridging anterior endplate spondylosis which may represent DISH. IMPRESSION: 1. STABLE MILDLY ANEURYSMAL AORTIC ROOT (4.0 CM) AND STABLE MILD ANEURYSM ASCENDING AORTA (4.0 CM). 2. THE UPPER DESCENDING THORACIC AORTA IS ALSO ANEURYSMAL AT 3.3 CM, STABLE. 3. THE PATIENT'S KNOWN AAA IS NOT INCLUDED ON THE STUDY. 4. SUBAREOLAR NODULARITY ON THE LEFT MEASURING 1.2 CM VERSUS 7 MM, PREVIOUSLY. THIS LIKELY RELATES TO INCREASING GYNECOMASTIA. CORRELATE WITH PHYSICAL EXAM FINDINGS. IF ANY SUSPICIOUS FINDINGS ON PHYSIC AL EXAM, DIAGNOSTIC MAMMOGRAM CAN FURTHER EVALUATE. 5. PULMONARY ARTERIAL HYPERTENSION. 6. COPD WITH MILD EMPHYSEMA AND PRIOR GRANULOMATOUS DISEASE.
== END | disposition home or self-care (01) ==
LOC: RADUSMAIN 06:28
PROVIDERS: ATTEND Internal Medicine Interventional Cardiology
DX: Q25.43 Congenital aneurysm of aorta (principal); I71.2 Thoracic aortic aneurysm, without rupture; I27.21 Secondary pulmonary arterial hypertension; J43.9 Emphysema, unspecified
CPT/HCPCS: 82565; 84520; 93979; 71275; 36415; Q9967

== ENCOUNTER → 2020-02-15 | Outpatient (CLI) | payer MEDICARE ==
--- NOTE | 2020-02-18 08:51 | CT ---
EXAMINATION TYPE: CT angio chest DATE OF EXAM: 02/15/2020 4:33 PM COMPARISON: CTA chest 01/24/2018 HISTORY: Follow up for thoracic aortic aneurysm. CT DLP: 907.1 mGycm Automated exposure control for dose reduction was used. CONTRAST: CTA scan of the thorax is performed without and with IV Contrast, patient injected with 100ml mL of I sovue 370, thoracic aortic aneurysm protocol. 3D reconstructed images are created on an independent workstation and reviewed. FINDINGS: LUNGS: Emphysematous and interstitial changes are redemonstrated. Unchanged nodular opacity of the ri ght upper lobe (7:17). Redemonstrated L5 granuloma of the right middle lobe. There is no new concerni ng parenchymal mass or nodule identified. There is no pleural effusion or pneumothorax seen. The t racheobronchial tree is patent. MEDIASTINUM: Precontrast imaging demonstrates no evidence of intramural hematoma. Bovine aortic arch. Thoracic aortic is borderline ectatic, with the ascending thoracic aorta measuring up to 3.8 cm, pre viously 4.0 cm on 01/24/2018 comparison. There is ectasia of the proximal descending thoracic aorta me asuring up to 3.3 cm, unchanged versus 2018. There is somewhat tortuous course of the descending thor acic aorta. No evidence of thoracic aortic dissection. Mild to moderate scattered calcified and nonca lcified atherosclerotic disease. Redemonstrated prominence of the right and left main pulmonary arter ies, likely pulmonary arterial hypertension. Calcified coronary artery disease and CABG postsurgical changes. Mild cardiomegaly redemonstrated. No pericardial effusion. No axillary, mediastinal, or maximino r lymphadenopathy. Redemonstrated calcified hilar lymph nodes. OTHER: Small hiatal hernia. Normal adrenal glands. 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 There is left subareolar nodular density measuring 1.4 x 1.2 cm, s imilar versus mildly increased versus 01/24/2018. IMPRESSION: 1. Thoracic aortic ectasia measuring up to 3.8 cm at the ascending thoracic aorta and 3.3 cm at the descending thoracic aorta. No significant interval change versus 2018 comparison. 2. Left breast subareolar nodularity is similar to mildly increased versus 2018 comparison. Findings may represent gynecomastia versus breast neoplasm. Recommend correlation with physical exam and diag nostic mammogram.
== END | disposition home or self-care (01) ==
LOC: RADCTMAIN 15:07
PROVIDERS: ATTEND Internal Medicine Interventional Cardiology
DX: I77.810 Thoracic aortic ectasia (principal)
CPT/HCPCS: 82565; 84520; 71275; 36415; Q9967

== ENCOUNTER → 2020-03-05 | Outpatient (CLI) | payer MEDICARE ==
--- NOTE | 2020-03-06 10:16 | MM ---
Reason for exam: clinical finding. History: Patient history of colon cancer. Physical Findings: Nurse did not find any significant physical abnormalities on exam. MG Diagnostic Mammo w CAD JHOAN Bilateral CC and MLO view(s) were taken. The breast tissue is almost entirely fat. Lobulated density subareolar left breast measuring 1.8 x 1.6 x 1.5cm. Mild flame shaped gynecomastia on the right behind the nipple These results were verbally communicated with the patient and result sheet given to the patient on 03/05/20. ASSESSMENT: Incomplete: need additional imaging evaluation, BI-RAD 0 RECOMMENDATION: Ultrasound of both breasts.
--- NOTE | 2020-03-06 10:20 | USB ---
Reason for exam: additional evaluation requested from abnormal screening. History: Patient history of colon cancer. US Breast Limited BILAT Left limited breast ultrasound including focal area of concern, retroareolar and axilla demonstrates a 1.7 x 1.5 x 1.5cm mixed, lobulated, solid, vascular, cystic mass at the posterior nipple/1 o'clock, suspicious. Right limited breast ultrasound including focal area of concern, retroareolar and axilla demonstrates no cystic or solid lesion seen. Bilateral nipples scanned. These results were verbally communicated with the patient and result sheet given to the patient on 03/05/20. ASSESSMENT: Suspicious, BI-RAD 4 RECOMMENDATION: Ultrasound core biopsy of the left breast. (Scan axilla when patient arrives for biopsy) Called Dr. Donis's office with mammographic findings and has scheduled an appointment for the patient for 03/18/20 at 4:[address] Rey. PRELIMINARY REPORT CALLED AND FAXED TO DR. REY ON 03/06/20.
== END | disposition home or self-care (01) ==
LOC: RADMAMWWP 13:46
PROVIDERS: ATTEND Internal Medicine Geriatric Medicine
DX: N63.20 Unspecified lump in the left breast, unspecified quadrant (principal); R92.8 Other abnormal and inconclusive findings on diagnostic imaging of breast
CPT/HCPCS: 77066

== ENCOUNTER → 2020-03-27 | Day surgery (SDC) | payer MEDICARE ==
[2020-03-27 09:56] VITALS: RESP 16; TEMP 98.2
[2020-03-27 11:23] VITALS: BP 136/68; PULSE 59
--- NOTE | 2020-03-27 12:19 | USB ---
EXAMINATION TYPE: US biopsy breast VAD LT, MG post biopsy diagnostic mammo LT wo CAD DATE OF EXAM: 03/27/2020 CLINICAL HISTORY: 85-year-old male [id number] Breast mass L. TECHNIQUE: Ultrasound guided core biopsy of the 1:00 periareolar left breast. COMPARISON: Correlation CT 02/15/2020 and diagnostic mammographic workup 03/05/2020 FINDINGS: The procedure of ultrasound guided core biopsy was explained to the patient. Benefits, alt ernatives, and risks were discussed. An informed consent was then obtained. The 1.7 cm mixed solid cystic lobulated lesion close to the nipple at the 1:00 position was identifie d and targeted for biopsy. The patient was placed in supine positioning for imaging and for the procedure. The overlying skin w as prepped and draped in usual sterile fashion. Lidocaine was used as anesthetic into the skin follo wed by lidocaine/epinephrine into the subcutaneous tissue up to area of concern in the 1:[address] Under ultrasound guidance, a 13-gauge vacuum-assisted mammotome Elite biopsy gun device was used to o btain 9 core samples. Following this, a Hydromark clip was left at the site of biopsy. The cystic co mponents of the lesion collapsed during the sampling. The patient tolerated the procedure well without any immediate complication. The patient was kept in the radiology department for short stay after the procedure and then discharged home in stable condi tion. Post biopsy mammogram shows clip in the subareolar region. The lesion is not as well-seen likely due to collapse of the cystic components during biopsy. IMPRESSION: Successful, uncomplicated ultrasound guided core biopsy of the indeterminate, mixed solid and cystic mass within the 1:00 periareolar left breast. Full pathology results to follow.
== END ==
LOC: RADUSWWP 09:25
PROVIDERS: ATTEND Surgery
DX: C50.922 Malignant neoplasm of unspecified site of left male breast (principal); Z17.0 Estrogen receptor positive status [ER+]
CPT/HCPCS: 77065; 19083; A4648; J2001; 88305; 88341; 88342

== ENCOUNTER 2020-04-09 10:51 | Day surgery (SDC) | payer MEDICARE ==
[2020-04-07 12:45] VITALS: BMI 28.6
[~2020-04-09 10:51] MED LIST: ACETAMINOPHEN TAB 500 MG TAB PO PRN; HEPARIN SODIUM,PORCINE 5,000 UNIT/ML 1 ML VIAL SQ PRN; Pre Op ABX Message 1 EACH MISC MISCELLANE ONE
[2020-04-09] MEDS ORDERED: ONDANSETRON 4 MG/2 ML VIAL ONE (11:49)
[2020-04-09] MEDS ORDERED: LIDOCAINE 1% (10MG/ML) FOR IV START INTRADERMA ONE (12:00)
[2020-04-09] MEDS ORDERED: LACTATED RINGERS 1,000 ML IV ONE (12:00)
--- NOTE | 2020-04-09 12:03 | P.GSHP ---
History of Present Illness H&P Date: 04/09/20 Chief Complaint: Left Breast cancer This is an 85-year-old male who presents today for left mastectomy with sentinel node biopsy. Patient previously diagnosed with left breast cancer. Past Medical History Past Medical History: Atrial Fibrillation, Cancer, Heart Failure, Dementia, Hyperlipidemia, Hypertension Additional Past Medical History / Comment(s): left breast CA,HX OF COLON CANCER- no radiation or chemo. GOUT, HAS AAA THAT IS BEING MONITORED,spouse states "ok to sign own consent" History of Any Multi-Drug Resistant Organisms: None Reported Past Surgical History: Bowel Resection, Coronary Bypass/CABG Additional Past Surgical History / Comment(s): breast bx,CATARACTS, CABG 1996. Past Anesthesia/Blood Transfusion Reactions: No Reported Reaction Additional Past Anesthesia/Blood Transfusion Reaction / Comment(s): no hx blood transfusion Past Psychological History: Anxiety Smoking Status: Never smoker Past Alcohol Use History: None Reported Past Drug Use History: None Reported - Past Family History Brother(s) Family Medical History: Cancer Additional Family Medical History / Comment(s): PROSTATE CA Medications and Allergies Home Medications Medication Instructions Recorded Confirmed Type Acetaminophen Tab [Tylenol] 500 mg PO HS 06/10/14 04/07/20 History Allopurinol 100 mg PO QAM 06/10/14 04/07/20 History Aspirin EC [Ecotrin Low Dose] 81 mg PO HS 06/10/14 04/07/20 History Donepezil HCl 10 mg PO BID 06/10/14 04/07/20 History Multivitamins, Thera [Multivitamin 1 tab PO DAILY 06/10/14 04/07/20 History (formulary)] Quinapril HCl [Accupril] 20 mg PO BID 06/10/14 04/07/20 History atenoloL [Atenolol] 25 mg PO BID 06/10/14 04/07/20 History Simvastatin [Zocor] 40 mg PO HS 02/14/17 04/07/20 History hydroCHLOROthiazide [Hydrodiuril] 25 mg PO DAILY 02/14/17 04/07/20 History Isosorbide Mononitrate ER [Imdur] 60 mg PO QAM 02/22/17 04/07/20 History Memantine [Namenda] 10 mg PO HS 03/27/20 04/07/20 History ALPRAZolam [Xanax] 0.25 mg PO BID PRN 04/07/20 04/07/20 History Dabigatran Etexilate Mesylate 150 mg PO BID 04/07/20 04/07/20 History [Pradaxa] Allergies Allergy/AdvReac Type Severity Reaction Status Date / Time suture AdvReac breast Verified 04/07/20 13:00 biopsy took very long time to heal Surgical - Exam - General well developed, well nourished, no distress - Eyes PERRL - ENT normal pinna - Neck no masses - Respiratory normal expansion - Cardiovascular Rhythm: regular - Abdomen Abdomen: soft, non tender - Integumentary Left breast tender with 1 cm mass below the nipple. No cervical or axillary lymphadenopathy Assessment and Plan Assessment: Left breast cancer. We'll perform left breast mastectomy with sentinel node biopsy
[2020-04-09] MEDS ORDERED: DEXAMETHASONE SOD PHOSPHATE 4 MG/ML 1 ML VIAL IV ONE (13:01)
--- NOTE | 2020-04-09 13:11 | NM ---
EXAMINATION TYPE: NM sentinel node injection DATE OF EXAM: 04/09/2020 COMPARISON: NONE HISTORY: LEFT BREAST CANCER C50.912 TECHNIQUE AND FINDINGS: The procedure of sentinel lymph node injection was explained to the patient. The benefits, alternatives, and risks were discussed. An informed consent was then obtained. Overlying skin is cleaned with sterile alcohol. Following this, 490 uCi Tc99m Tilmanocept was inject ed in the upper outer aspect of the left nipple intradermally. The patient tolerated the procedure well without any immediate complication. The patient was kept in the radiology department for short stay after the procedure and then taken to surgery for surgical p rocedure what is presumed intraoperative gamma probe will be used for sentinel lymph node detection. IMPRESSION: Left breast radiotracer injection for sentinel node localization as above.
[2020-04-09] MEDS ORDERED: SUCCINYLCHOLINE CHLORIDE 100 MG/5 ML SYR IV ONE (14:47)
[2020-04-09] MEDS ORDERED: LIDOCAINE 1% INJ 10MG/ML (20 ML MDV) ONE (14:47)
[2020-04-09] MEDS ORDERED: PROPOFOL 10 MG/ML 20 ML VIAL IV ONE (14:47)
[2020-04-09] MEDS ORDERED: ceFAZolin 1,000 MG VIAL ONE (14:47)
[2020-04-09] MEDS ORDERED: fentaNYL (PF) 50 MCG/ML 2 ML AMP ONE (14:47)
[2020-04-09] MEDS ORDERED: SODIUM CHLORIDE 0.9% 50 ML with ceFAZolin 2,000 MG IV ONE ×2 (15:08)
[2020-04-09] MEDS ORDERED: METHYLENE BLUE 50 MG/10 ML AMPUL INJ ONE (15:20)
[2020-04-09] MEDS ORDERED: BUPIVACAIN-EPI 0.5%-1:200,000 30 ML VIAL SQ ONE (15:21)
[2020-04-09 16:15] VITALS: TEMP 97.6
--- NOTE | 2020-04-09 16:21 | P.OP ---
Date of Procedure: 04/09/20 Preoperative Diagnosis: Left breast cancer Postoperative Diagnosis: Left breast cancer Procedure(s) Performed: Left mastectomy with axillary node dissection Anesthesia: YORDAN Surgeon: Randy Rey Estimated Blood Loss (ml): 20 Pathology: other (Left breast, left axillary contents) Condition: stable Disposition: PACU Description of Procedure: The patient's placed on the operative table in supine position. He received general anesthesia. His left breast was prepped and draped usual sterile fashion. The chest was injected with methylene blue in 4 quadrants. The breast was massaged for 5 minutes. The left chest was then prepped and draped usual fashion. A incision was made in the sella. And then using the neoprobe the area of the sentinel node was found. The axillary contents were then dissected using Harmonic scissors. The specimen sent to pathology. A ROMEO drains placed into the examining brought through separate stab incision. Skin was closed interrupted 3-0 Monocryl suture. Next a infra-areolar curvilinear incision was made then using Harmonic scissors the left breast was dissected free. The specimen sent to pathology after it had had been painted to orientated. Hemostasis was achieved skin was closed interrupted 3-0 Monocryl suture. Dermabond was applied.
[2020-04-09 17:17] VITALS: RESP 18
[2020-04-09 18:15] VITALS: BP 147/77; PULSE 58
== END 2020-04-09 18:00 | disposition home or self-care (01) ==
LOC: OR 10:51 → EDSTATUS 13:15 → OR 18:00
PROVIDERS: ATTEND Surgery
DX: C50.922 Malignant neoplasm of unspecified site of left male breast (principal); I48.91 Unspecified atrial fibrillation; I11.0 Hypertensive heart disease with heart failure; I50.9 Heart failure, unspecified; F03.90 Unspecified dementia, unspecified severity, without behavioral disturbance, psychotic disturbance, mood disturbance, and anxiety; E78.5 Hyperlipidemia, unspecified; M10.9 Gout, unspecified; I71.4 Abdominal aortic aneurysm, without rupture; F41.9 Anxiety disorder, unspecified; I25.10 Atherosclerotic heart disease of native coronary artery without angina pectoris; I25.2 Old myocardial infarction; Z85.038 Personal history of other malignant neoplasm of large intestine; Z90.49 Acquired absence of other specified parts of digestive tract; Z95.1 Presence of aortocoronary bypass graft; Z98.890 Other specified postprocedural states; Z98.41 Cataract extraction status, right eye; Z98.42 Cataract extraction status, left eye; Z79.899 Other long term (current) drug therapy; Z79.82 Long term (current) use of aspirin; Z79.01 Long term (current) use of anticoagulants; Z91.09 Other allergy status, other than to drugs and biological substances; Z97.2 Presence of dental prosthetic device (complete) (partial); Z80.42 Family history of malignant neoplasm of prostate
CPT/HCPCS: 19307; 88342; 88307; 88341; 38792; A9520; J1644; J1100; J2405; J0690; J2001; J3010; J0330; J2704; Q9968

== ENCOUNTER 2020-08-29 07:38 | Day surgery (SDC) | payer MEDICARE ==
[2020-08-26 10:40] VITALS: BMI 29.2
[~2020-08-29 07:38] MED LIST changes: -ACETAMINOPHEN TAB 500 MG TAB PO PRN; +DEXAMETHASONE SOD PHOSPHATE 4 MG/ML 1 ML VIAL IV ONE; -HEPARIN SODIUM,PORCINE 5,000 UNIT/ML 1 ML VIAL SQ PRN; +HYDROmorphone 0.5 MG/0.5 ML SYRINGE IVP PRN; +LACTATED RINGERS 1,000 ML IV SCH; +MIDAZOLAM 2 MG/2 ML VIAL IV PRN; +ONDANSETRON 4 MG/2 ML VIAL IVP ONE; -Pre Op ABX Message 1 EACH MISC MISCELLANE ONE
[2020-08-29] MEDS ORDERED: PROPOFOL 10 MG/ML 20 ML VIAL IV ONE (08:47)
--- NOTE | 2020-08-29 09:04 | P.GSHP ---
History of Present Illness H&P Date: 08/29/20 Chief Complaint: History of colon cancer This is a 85-year-old male who presents today for colonoscopy. Patient's previous history of right colon cancer. He denies a significant GI complaints. Past Medical History Past Medical History: Atrial Fibrillation, Cancer, Heart Failure, Dementia, Hyperlipidemia, Hypertension, Memory Impairment, Myocardial Infarction ([place]), Osteoarthritis (OA) Additional Past Medical History / Comment(s): left breast CA,HX OF COLON CANCER- no radiation or chemo. GOUT, HAS AAA THAT IS BEING MONITORED,spouse states "ok to sign own consent" Last Myocardial Infarction Date:: 2008 History of Any Multi-Drug Resistant Organisms: None Reported Past Surgical History: Bowel Resection, Coronary Bypass/CABG Additional Past Surgical History / Comment(s): breast bx,CATARACTS, CABG 1996. LEFT BREAST SURGERY FOR CANCER Past Anesthesia/Blood Transfusion Reactions: No Reported Reaction Additional Past Anesthesia/Blood Transfusion Reaction / Comment(s): no hx blood transfusion Smoking Status: Never smoker - Past Family History Brother(s) Family Medical History: Cancer Additional Family Medical History / Comment(s): PROSTATE CA Medications and Allergies Home Medications Medication Instructions Recorded Confirmed Type Acetaminophen Tab [Tylenol] 500 mg PO HS 06/10/14 08/29/20 History Allopurinol 100 mg PO QAM 06/10/14 08/29/20 History Aspirin EC [Ecotrin Low Dose] 81 mg PO HS 06/10/14 08/29/20 History Donepezil HCl 10 mg PO BID 06/10/14 08/29/20 History Multivitamins, Thera [Multivitamin 1 tab PO DAILY 06/10/14 08/29/20 History (formulary)] Quinapril HCl [Accupril] 20 mg PO BID 06/10/14 08/29/20 History atenoloL [Atenolol] 25 mg PO BID 06/10/14 08/29/20 History Simvastatin [Zocor] 40 mg PO HS 02/14/17 08/29/20 History hydroCHLOROthiazide [Hydrodiuril] 25 mg PO DAILY 02/14/17 08/29/20 History Isosorbide Mononitrate ER [Imdur] 60 mg PO QAM 02/22/17 08/29/20 History Memantine [Namenda] 10 mg PO BID 03/27/20 08/29/20 History ALPRAZolam [Xanax] 0.25 mg PO BID PRN 04/07/20 08/29/20 History Apixaban [Eliquis] 2.5 mg PO BID 08/26/20 08/29/20 History Allergies Allergy/AdvReac Type Severity Reaction Status Date / Time suture AdvReac CABG Verified 08/29/20 08:05 INCISION - took very long time to heal Surgical - Exam Vital Signs Pulse Resp BP Pulse Ox 82 16 153/72 95 08/29/20 08:09 08/29/20 08:09 08/29/20 08:09 08/29/20 08:09 - General well developed, well nourished, no distress - Eyes PERRL - ENT normal pinna - Neck no masses - Respiratory normal expansion - Cardiovascular Rhythm: regular - Abdomen Abdomen: soft, non tender Assessment and Plan Assessment: History: Cancer. We'll perform colonoscopy.
--- NOTE | 2020-08-29 09:06 | P.OP ---
Date of Procedure: 08/29/20 Preoperative Diagnosis: History of right colon cancer Postoperative Diagnosis: Diverticulosis Procedure(s) Performed: Colonoscopy Anesthesia: MAC Surgeon: Randy Rey Pathology: none sent Condition: stable Disposition: PACU Description of Procedure: The patient's placed on the endoscopy table in the lateral position. He received IV sedation. Digital rectal exam was performed which revealed no abnormalities. The prostate was symmetric without nodules. The flexible colonoscope was then placed patient anus and passed throughout the entire colon. The patient a previous right colectomy. The ileocolonic anastomosis visualized. The transverse colon appeared normal. In the descending and sigmo id colon there was mild diverticular changes. Scope was then brought back the rectum and this appeared normal. Scope withdrawn for patient.
[2020-08-29 10:00] VITALS: BP 158/68; PULSE 58; RESP 18
== END 2020-08-29 10:10 | disposition home or self-care (01) ==
LOC: ORWHC2ENDO 07:38
PROVIDERS: ATTEND Surgery
DX: Z12.11 Encounter for screening for malignant neoplasm of colon (principal); K57.30 Diverticulosis of large intestine without perforation or abscess without bleeding; Z90.49 Acquired absence of other specified parts of digestive tract; Z85.038 Personal history of other malignant neoplasm of large intestine; I48.91 Unspecified atrial fibrillation; I25.10 Atherosclerotic heart disease of native coronary artery without angina pectoris; I11.0 Hypertensive heart disease with heart failure; I50.9 Heart failure, unspecified; F03.90 Unspecified dementia, unspecified severity, without behavioral disturbance, psychotic disturbance, mood disturbance, and anxiety; E78.5 Hyperlipidemia, unspecified; M19.90 Unspecified osteoarthritis, unspecified site; I71.4 Abdominal aortic aneurysm, without rupture; M10.9 Gout, unspecified; R41.3 Other amnesia; I25.2 Old myocardial infarction; Z85.3 Personal history of malignant neoplasm of breast; Z95.1 Presence of aortocoronary bypass graft; Z97.2 Presence of dental prosthetic device (complete) (partial); Z98.49 Cataract extraction status, unspecified eye; Z80.42 Family history of malignant neoplasm of prostate; Z79.01 Long term (current) use of anticoagulants; Z79.82 Long term (current) use of aspirin; Z79.899 Other long term (current) drug therapy; Z91.09 Other allergy status, other than to drugs and biological substances
CPT/HCPCS: J2704; G0105; 45378

== ENCOUNTER 2023-09-08 15:35 | Observation (INO) | payer MEDICARE ==
--- NOTE | 2023-09-08 16:23 | ED ---
General Adult HPI - General Chief complaint: Weakness Stated complaint: AMS falling Time Seen by Provider: 09/08/23 16:00 Source: patient Mode of arrival: ambulatory Limitations: no limitations - History of Present Illness Initial comments: Dictation was produced using xoompark dictation software. please excuse any grammatical, word or spelling errors. Chief Complaint: 88-year-old male presents to the emergency department for altered mental status History of Present Illness: Patient is an 88-year-old male for the last month he has been having worsening mentation. Yesterday patient had some episodes where he was altered. describes it as gibberish. He has been stating some paranoid thoughts. Patient denies any complaints today. He states that he was brought here today because his and daughter made him come. Patient sees primary care doctor who knows that patient has some history of dementia. The ROS documented in this emergency department record has been reviewed and confirmed by me. Those systems with pertinent positive or negative responses have been documented in the HPI. All other systems are other negative and/or n oncontributory. - Related Data Home Medications Medication Instructions Recorded Confirmed Acetaminophen Tab [Tylenol] 500 mg PO HS 06/10/14 09/08/23 Aspirin EC [Ecotrin Low Dose] 81 mg PO HS 06/10/14 09/08/23 Donepezil HCl 10 mg PO BID 06/10/14 09/08/23 allopurinoL [Allopurinol] 100 mg PO DAILY 06/10/14 09/08/23 atenoloL 25 mg PO BID 06/10/14 09/08/23 Simvastatin [Zocor] 40 mg PO HS 02/14/17 09/08/23 hydroCHLOROthiazide [Hydrodiuril] 25 mg PO DAILY 02/14/17 09/08/23 Memantine [Namenda] 10 mg PO BID 03/27/20 09/08/23 ALPRAZolam [Xanax] 0.25 mg PO BID PRN 04/07/20 09/08/23 Apixaban [Eliquis] 2.5 mg PO BID 08/26/20 09/08/23 Isosorbide Mononitrate ER [Imdur] 60 mg PO DAILY 09/08/23 09/08/23 Multivitamin [Multivitamins Adult 1 tab PO DAILY 09/08/23 09/08/23 Gummies] lisinopriL [Zestril] 20 mg PO DAILY 09/08/23 09/08/23 traZODone HCL [Desyrel] 100 mg PO HS 09/08/23 09/08/23 Allergies Allergy/AdvReac Type Severity Reaction Status Date / Time suture AdvReac CABG Verified 09/08/23 17:27 INCISION - took very long time to heal, wound opened up Review of Systems ROS Statement: Those systems with pertinent positive or pertinent negative responses have been documented in the HPI. ROS Other: All systems not noted in ROS Statement are negative. Past Medical History Past Medical History: Atrial Fibrillation, Cancer, Heart Failure, Dementia, Hyperlipidemia, Hypertension, Memory Impairment, Myocardial Infarction ([place]), Osteoarthritis (OA) Additional Past Medical History / Comment(s): left breast CA,HX OF COLON CANCER- no radiation or chemo. GOUT, HAS AAA THAT IS BEING MONITORED,spouse states "ok to sign own consent" Last Myocardial Infarction Date:: 2008 History of Any Multi-Drug Resistant Organisms: None Reported Past Surgical History: Bowel Resection, Coronary Bypass/CABG Additional Past Surgical History / Comment(s): breast bx,CATARACTS, CABG 1996. LEFT BREAST SURGERY FOR CANCER Past Anesthesia/Blood Transfusion Reactions: No Reported Reaction Additional Past Anesthesia/Blood Transfusion Reaction / Comment(s): no hx blood transfusion Past Psychological History: Anxiety Smoking Status: Never smoker Past Alcohol Use History: None Reported Past Drug Use History: None Reported - Past Family History Brother(s) Family Medical History: Cancer Additional Family Medical History / Comment(s): PROSTATE CA General Exam - General Exam Comments Initial Comments: PHYSICAL EXAM: General Impression: Alert and oriented x3, not in acute distress HEENT: Normocephalic atraumatic, extra-ocular movements intact, pupils equal and reactive to light bilaterally, mucous membranes moist. Cardiovascular: Heart regular rate and rhythm Chest: Able to complete full sentences, no retractions, no tachypnea Abdomen: abdomen soft, non-tender, non-distended, no organomegaly Musculoskeletal: Pulses present and equal in all extremities, no peripheral edema Motor: no focal deficits noted Neurological: CN II-XII grossly intact, no focal motor or sensory deficits noted Skin: Intact with no visualized rashes Psych: Normal affect and mood Limitations: no limitations Course Vital Signs 09/08/23 09/08/23 15:49 19:14 Temperature 97.6 F 98.4 F Pulse Rate 110 H 54 L Respiratory 20 16 Rate Blood Pressure 131/72 121/67 O2 Sat by Pulse 97 95 Oximetry EKG Findings - EKG Comments: EKG Findings:: My EKG interpretation: Ventricular rate 68, a flutter, QRS 111, QTc 431. No CA prolongation, no QTC prolongation, no ST or T-wave changes noted. EKG compared to February 23, 2017 showing no changes. Overall, this EKG is unremarkable Medical Decision Making - Medical Decision Making Was pt. sent in by a medical professional or institution (, PA, PRODUCT STEWARD, urgent care, hospital, or group home...) When possible be specific @ -No Did you speak to anyone other than the patient for history (EMS, parent, family, police, friend...)? What history was obtained from this source @ -History of present illness obtained from and daughter at the bedside Did you review nursing and triage notes (agree or disagree)? Why? @ -I reviewed and agree with nursing and triage notes Were old charts reviewed (outside hosp., previous admission, EMS record, old EKG, old radiological studies, urgent care reports/EKG's, group home records)? Report findings @ -No old charts were reviewed Differential Diagnosis (chest pain, altered mental status, abdominal pain women, abdominal pain men, vaginal bleeding, musculoskeletal, weakness, fever, dyspnea, syncope, headache, dizziness, GI bleed, back pain, seizure, CVA, palpatations, mental health)? @ -Differential Altered Mental Status: Hypoglycemia, DKA, hypercapnia, ETOH, overdose, CO poisoning, trauma, myxedema coma, HTN encephalopathy, infection, encephalitis, psychosis, intercranial hemorrhage, hepatic encephalopathy, meningitis, CVA, this is not meant to be an all-inclusive list EKG interpreted by me (3pts min.). @ -See above X-rays interpreted by me (1pt min.). @ -None done CT interpreted by me (1pt min.). @ -CT scan of the brain is unremarkable U/S interpreted by me (1pt. min.). @ -None done What testing was considered but not performed or refused? (CT, X-rays, U/S, labs)? Why? @ -None What meds were considered but not given or refused? Why? @ -None Did you discuss the management of the patient with other professionals (professionals i.e. DrBeverly, PA, PRODUCT STEWARD, lab, RT, psych nurse, adoption social worker, auto brake mechanic, teacher, public safety officer, sample case porter)? Give summary @ -Case discussed in detail with Dr. Donis, who is willing to accept patient's care for placement and evaluation of bradycardia Was smoking cessation discussed for >3mins.? @ -No Was critical care preformed (if so, how long)? @ -No Were there social determinants of health that impacted care today? How? (Homelessness, low income, unemployed, alcoholism, drug addiction, transportat ion, low edu. Level, literacy, decrease access to med. care, long term, rehab)? @ -No Was there de-escalation of care discussed even if they declined (Discuss DNR or withdrawal of care, Hospice)? DNR status @ -No What co-morbidities impacted this encounter? (DM, HTN, Smoking, COPD, CAD, Cancer, CVA, ARF, Chemo, Hep., AIDS, mental health diagnosis, sleep apnea, morbid obesity)? @ -None Was patient admitted / discharged? Hospital course, mention meds given and route, prescriptions, significant lab abnormalities, going to OR and other pertinent info. @ -88-year-old male brought into the emergency department by and daughter. Patient has been having hallucinations at home and also paranoid behavior. Patient is currently on the wait list at one of the group home. states that she is unable to care for him at home because he stays up all night keeps her awake and cannot care for himself. Patient denies any complaints at the bedside. Physical examination is otherwise benign. Patient no acute distress. Laboratory evaluation is unremarkable. CT brain is negative. Patient was initially going to be discharged however and daughter pled that patient be admitted because they are unable to care for him at home. does not have any assistance. They are instructed by auto brake mechanic and primary care physician's office and also group home to bring the patient to the emergency department to be admitted for 3 days prior to going to group home. Undiagnosed new problem with uncertain prognosis? @ -No Drug Therapy requiring intensive monitoring for toxicity (Heparin, Nitro, Insulin, Cardizem)? @ -No Were any procedures done? @ -No Diagnosis/symptom? Acute, or Chronic, or Acute on Chronic? Uncomplicated (without systemic symptoms) or Complicated (systemic symptoms)? @ -Gravely disabled, bradycardia Side effects of treatment? @ -No Exacerbation, Progression, or Severe Exacerbation? @ -No Poses a threat to life or bodily function? How? (Chest pain, [place], PA, pneumonia, PE, COPD, DKA, ARF, appy, cholecystitis, CVA, Diverticulitis, Homicidal, Suicidal, threat to staff... and all critical care pts) @ -No - Lab Data Result diagrams: 09/08/23 17:16 09/08/23 17:16 Lab Results 09/08/23 09/08/23 09/08/23 Range/Units 17:16 17:16 17:16 WBC 5.9 (3.8-10.6) k/uL RBC 4.42 (4.30-5.90) m/uL Hgb 13.7 (13.0-17.5) gm/dL Hct 43.0 (39.0-53.0) % MCV 97.3 (80.0-100.0) fL MCH 31.1 (25.0-35.0) pg MCHC 31.9 (31.0-37.0) g/dL RDW 13.4 (11.5-15.5) % Plt Count 176 (150-450) k/uL MPV 8.6 Neutrophils % 78 % Lymphocytes % 9 % Monocytes % 8 % Eosinophils % 2 % Basophils % 1 % Neutrophils # 4.6 (1.3-7.7) k/uL Lymphocytes # 0.5 L (1.0-4.8) k/uL Monocytes # 0.5 (0-1.0) k/uL Eosinophils # 0.1 (0-0.7) k/uL Basophils # 0.0 (0-0.2) k/uL Sodium 138 (137-145) mmol/L Potassium 4.2 (3.5-5.1) mmol/L Chloride 100 (98-107) mmol/L Carbon Dioxide 35 H (22-30) mmol/L Anion Gap 3 mmol/L BUN 20 (9-20) mg/dL Creatinine 0.87 (0.66-1.25) mg/dL Est GFR (CKD-EPI)AfAm 89 (>60 ml/min/1.73 sqM) Est GFR (CKD-EPI)NonAf 77 (>60 ml/min/1.73 sqM) Glucose 114 H (74-99) mg/dL Calcium 8.8 (8.4-10.2) mg/dL Urine Color Colorless Urine Appearance Clear (Clear) Urine pH 6.5 (5.0-8.0) Ur Specific Ozone 1.016 (1.001-1.035) Urine Protein Negative (Negative) Urine Glucose (UA) Negative (Negative) Urine Ketones Negative (Negative) Urine Blood Small H (Negative) Urine Nitrite Negative (Negative) Urine Bilirubin Negative (Negative) Urine Urobilinogen <2.0 (<2.0) mg/dL Ur Leukocyte Esterase Trace H (Negative) Urine RBC 24 H (0-5) /hpf Urine WBC 3 (0-5) /hpf Ur Squamous Epith Cells <1 (0-4) /hpf Urine Mucus Rare H (None) /hpf Disposition Clinical Impression: Gravely disabled Disposition: ADMITTED IP TO THIS [facility] Condition: Fair Referrals: Behzad Donis MD [Primary Care Provider] - 1-2 days Decision Time: 21:22
[2023-09-08 17:39] LABS: Basophils % (A) 1 %; Eosinophils # (A) 0.1 k/uL (0-0.7); Eosinophils % (A) 2 %; HGB 13.7 gm/dL (13.0-17.5); Lymphocytes # (A) 0.5 k/uL (1.0-4.8); Lymphocytes % (A) 9 %; MCH 31.1 pg (25.0-35.0); MCHC 31.9 g/dL (31.0-37.0); MCV 97.3 fL (80.0-100.0); Mean Platelet Volume 8.6; Monocytes # (A) 0.5 k/uL (0-1.0); Monocytes % (A) 8 %; Neutrophils # (A) 4.6 k/uL (1.3-7.7); Neutrophils % (A) 78 %; Platelet Count 176 k/uL (150-450); RBC 4.42 m/uL (4.30-5.90); RDW 13.4 % (11.5-15.5); WBC 5.9 k/uL (3.8-10.6)
--- NOTE | 2023-09-08 17:39 | CT ---
EXAMINATION TYPE: CT brain wo con DATE OF EXAM: 09/08/2023 HISTORY: AMS CT DLP: 2296.4 mGycm. Automated Exposure Control for Dose Reduction was Utilized. TECHNIQUE: CT scan of the head is performed without contrast. COMPARISON: None. FINDINGS: There is no skull fracture or intracranial hemorrhage. No midline shift of structures. No definite ac [place] attenuation defect. Bilateral ko radiata and centrum semiovale low attenuation is seen, nonsp ecific but usually reflecting small vessel ischemic change seen frequently in this age group. No extra-axial fluid collections. Ventricles and sulcal pattern and cisterns are unremarkable. There is a sinuses and mastoid sinus air cells and middle ear cavities are clear. Incidental note is made of prominent cerumen in both external auditory canals, greater on the upright . IMPRESSION: No definite acute process.
[2023-09-08 17:48] LABS: African American GFR (CKD) 89 (>60 ml/min/1.73 sqM); Anion Gap 3 mmol/L; Blood Urea Nitrogen 20 mg/dL (9-20); Calcium 8.8 mg/dL (8.4-10.2); Carbon Dioxide 35 mmol/L (22-30); Chloride 100 mmol/L (98-107); Glucose 114 mg/dL (74-99); Non-African American GFR(CKD) 77 (>60 ml/min/1.73 sqM); Potassium 4.2 mmol/L (3.5-5.1); Sodium 138 mmol/L (137-145)
[2023-09-08 20:24] LABS: Appearance,Urine Clear (Clear); Bilirubin,Urine Negative (Negative); Blood,Urine Small (Negative); Color,Urine Colorless; Glucose,Urine (UA) Negative (Negative); Ketones,Urine Negative (Negative); Leukocyte Esterase,Urine Trace (Negative); Mucus,Urine Rare /hpf; Nitrite,Urine Negative (Negative); PH, Urine 6.5 (5.0-8.0); Protein,Urine Negative (Negative); RBC,Urine 24 /hpf (0-5); Specific Gravity,Urine 1.016 (1.001-1.035); Squamous Epithelial Cell,Urine <1 /hpf (0-4); Urobilinogen,Urine <2.0 mg/dL (<2.0); WBC,Urine 3 /hpf (0-5)
[2023-09-08] MEDS ORDERED: NALOXONE 0.4 MG/ML 1 ML VIAL IV PRN (21:16)
[2023-09-09] MEDS: SODIUM CHLORIDE 0.9% 1,000 ML IV SCH (01:59)
[2023-09-09] MEDS: MULTIVITAMINS, THERA 1 EACH TAB PO SCH (08:44)
[2023-09-09] MEDS: APIXABAN 2.5 MG TABLET PO SCH (08:44)
[2023-09-09] MEDS: DONEPEZIL 10 MG TAB PO SCH (08:45)
[2023-09-09] MEDS: ISOSORBIDE MONONITRATE ER 60 MG TAB.ER.24H PO SCH (08:45)
[2023-09-09] MEDS: allopurinoL 100 MG TAB PO SCH (08:45)
[2023-09-09] MEDS: hydroCHLOROthiazide 25 MG TAB PO SCH (08:45)
[2023-09-09] MEDS: lisinopriL 20 MG TAB PO SCH (08:45)
[2023-09-09] MEDS: MEMANTINE 10 MG TAB PO SCH (08:46)
--- NOTE | 2023-09-09 08:58 | US ---
EXAMINATION TYPE: US carotid duplex BILAT DATE OF EXAM: 09/09/2023 COMPARISON: NONE CLINICAL INDICATION: Male, 88 years old with history of TIA; TIA TECHNIQUE: Carotid duplex ultrasound examination. Indirect Doppler criteria was utilized. FINDINGS: EXAM MEASUREMENTS: RIGHT: Peak Systolic Velocity (PSV) cm/sec ----- Right CCA: 65.6 ----- Right ICA: 79.3 ----- Right ECA: 92.2 ICA/CCA ratio: 1.21 RIGHT: End Diastole cm/sec ----- Right CCA: 5.9 ----- Right ICA: 13.0 ----- Right ECA: 0.0 LEFT: Peak Systolic Velocity (PSV) cm/sec ----- Left CCA: 83.2 ----- Left ICA: 77.5 ----- Left ECA: 120 ICA/CCA ratio: 0.93 LEFT: End Diastole cm/sec ----- Left CCA: 9.7 ----- Left ICA: 16.6 ----- Left ECA: 5.2 VERTEBRALS (direction of flow): Right Vertebral: Antegrade Left Vertebral: Antegrade Rhythm: Arrhythmia GOVERNMENT SERVICES PROFESSIONAL NOTES: Mild to moderate plaque bilateral bifurcations. no evidence of increased velocitie s IMPRESSION: 1. Less than 50% stenosis of the bilateral carotid bifurcations. 2. Irregular rhythm on spectral waveforms correlate with EKG. Criteria for Assigning % of Stenosis / Diameter reduction (Estimation based on the indirect measurements of the internal carotid artery velocities (ICA PSV). 1. Normal (no stenosis)=ICA PSV < 125 cm/s: ratio < 2.0: ICA EDV<40 cm/s. 2. Less than 50% stenosis=ICA PSV < 125 cm/s: ratio < 2.0: ICA EDV<40 cm/s. 3. 50 to 69% stenosis=ICA PSV of 125 to 230 cm/s: ration 2.0 ? 4.0: ICA EDV 40-100 cm/s. 4. Greater than 70% stenosis to near occlusion= ICA PSV > 230 cm/s: ratio > 4.0: ICA EDV > 100 cm/s. 5. Near occlusion= ICA PSV velocities may be low or undetectable: variable ratio and ICA EDV. 6. Total occlusion=unable to detect flow.
--- NOTE | 2023-09-09 12:37 | CA ---
Transthoracic Echo Report Name: Ethan Alvarado Age: 88 Gender: M : 1935 Exam Date: 09/09/2023 09:55 Exam Location: [place] [facility] Ht (in): 72 Wt (lb): 193 Ordering Physician: Behzad Donis MD Attending/Referring Phys: Operations Program Manager Chyna Mckeon RDCS Procedure CPT: Indications: lvfunction Cardiac Hx: Technical Quality: Fair Contrast 1: Total Dose (mL): Contrast 2: Total Dose (mL): MEASUREMENTS (Male / Female) Normal Values 2D ECHO LV Diastolic Diameter PLAX 4.3 cm 4.2 - 5.9 / 3.9 - 5.3 cm LV Systolic Diameter PLAX 3.7 cm IVS Diastolic Thickness 1.0 cm 0.6 - 1.0 / 0.6 - 0.9 cm LVPW Diastolic Thickness 1.2 cm 0.6 - 1.0 / 0.6 - 0.9 cm LV Relative Wall Thickness 0.5 LVOT Diameter 2.4 cm LV Diastolic Volume MOD BP 132.1 cm??? 67 - 155 / 56 - 104 cm??? LV Systolic Volume MOD BP 73.2 cm??? 22 - 58 / 19 - 49 cm??? LV Ejection Fraction MOD BP 44.6 % >= 55 % LV Cardiac Index MOD BP 3030.5 cm???/min???m??? LV Diastolic Volume MOD 4C 125.5 cm??? LV Systolic Volume MOD 4C 80.5 cm??? LV Ejection Fraction MOD 4C 35.8 % LV Cardiac Index MOD 4C 2312.0 cm???/min???m??? LV Diastolic Length 4C 8.7 cm LV Systolic Length 4C 7.8 cm LV Diastolic Volume MOD 2C 138.9 cm??? LV Systolic Volume MOD 2C 64.5 cm??? LV Ejection Fraction MOD 2C 53.5 % LV Cardiac Index MOD 2C 3825.1 cm???/min???m??? LV Diastolic Length 2C 8.7 cm LV Systolic Length 2C 7.6 cm LA Volume 100.8 cm??? 18 - 58 / 22 - 52 cm??? LA Volume Index 47.6 cm???/m??? 16 - 28 cm???/m??? Ascending Aorta Diameter 2.9 cm DOPPLER AV Peak Velocity 74.6 cm/s AV Peak Gradient 2.2 mmHg AV Mean Velocity 54.2 cm/s AV Mean Gradient 1.3 mmHg AV Velocity Time Integral 15.4 cm LVOT Peak Velocity 81.1 cm/s LVOT Peak Gradient 2.6 mmHg LVOT Velocity Time Integral 14.8 cm LVOT Stroke Volume 64.8 cm??? LVOT Stroke Volume Index 30.9 ml/m??? LVOT Cardiac Index 3332.9 cm???/min???m??? AV Area Cont Eq vti 4.2 cm??? AV Area Cont Eq pk 4.8 cm??? PV Peak Velocity 47.4 cm/s PV Peak Gradient 0.9 mmHg FINDINGS Left Ventricle Left ventricular ejection fraction is estimated at 40-45 %. Moderately increased left ventricular systolic volume. Moderately decreased left ventricular ejection fraction. Left ventricular cavity size normal. Right Ventricle Normal right ventricular size . Unable to esitmate right ventricular systolic pressure. Right Atrium Moderate right atrial dilatation by visual. Left Atrium Severely increased left atrial volume. Mildly increased left atrial area. Mitral Valve Mitral valve thickened. No evidence for mitral valve prolapse. No mitral stenosis. Mild mitral regurgitation.mitral annular calcification. Aortic Valve Trileaflet aortic valve. No aortic stenosis. Mild aortic regurgitation.aortic valve sclerosis. Tricuspid Valve Structurally normal tricuspid valve. No tricuspid stenosis. No tricuspid regurgitation. Pulmonic Valve Pulmonic valve not well visualized. No pulmonic stenosis. No pulmonic regurgitation. Pericardium No pericardial effusion. Left pleural effusion. Aorta Moderate aortic dilatation at the level of the sinuses of valsalva (root). Ascending aorta normal. CONCLUSIONS 1. Moderate global hypokinesis of the left ventricle 2. Mild aortic and mitral regurgitation Previewed by: Dr. Zoë Gonzalez MD (Electronically Signed) Final Date: 09 Sep 2023 12:36
--- NOTE | 2023-09-09 12:56 | P.HPIM ---
History of Present Illness H&P Date: 09/09/23 HISTORY OF PRESENT ILLNESS: 88-year-old office patient with active medical history of atherosclerotic heart disease, A-fib, post [place], post bypass surgery with history of left-sided breast cancer also history of colon cancer chronic history of gout, history of AAA with monitor with no rupture. Patient also has advanced Alzheimer disease with much worsening dementia has become much worse in the last few months. He brought to the emergency department at [facility] on late evening on 08/28/1509/08/2023 with severe altered mental status with worsening confusion and dementia has been having significant delusion and hallucination as well with more fatigue and tiredness the and the family has been having difficult time managing him at home as well as he had active significant change compared to his normal status. Ended up being seen and evaluated his laboratory value showed mildly elevated blood sugar, UA showed some right blood cell white blood cell are normal with no sign of infection, his heart monitor provided quite a bradycardia with pulse rate running in the 50s he is in A-fib quite irregular running between 40s and 60s beats per minute. CAT scan of the brain shows reflection of small vessel ischemic change with no bleed hemorrhage or any abnormality. Patient has been acting strangely compared to his normal status he was admitted to the hospital with possible stroke along with encephalopathy could be metabolic beside his severe bradycardia and A-fib with RVR. Will be seen and evaluated by neurology and psychiatry. REVIEW OF SYSTEMS: CONSTITUTIONAL: Well-developed no acute respiratory distress. EYES: No icterus sclerae, no conjunctivitis. EARS, NOSE, MOUTH, THROAT, and FACE: No sore throat, lymphadenopathy, carotid br uits or deformity. RESPIRATORY: No SOB cough or wheezes. CARDIOVASCULAR: Positive PND orthopnea palpitation with history of A-fib. GASTROINTESTINAL: No Abd pain, Nausea or vomiting, no Diarrhea or constipation, No GI Bleed, no distention or masses. GENITOURINARY: Negative for Hematuria or UTI, no kidney stones. INTEGUMENT/BREAST: Negative for any muscular injury with mild osteoarthritis.. HEMATOLOGIC/LYMPHATIC: Negative for bleed or purpura. MUSCULOSKELTAL: Generalized myalgia and arthralgia. NEURLOGICAL: Positive altered mental status with mild confusion abnormal balance and gait with slight bit of problem with his balance when attempt to walk. BEHAVIORAL/PSYCH: Worsening dementia. ENDOCRINE: Negative. PHYSICAL EXAMINATION: General Appearance: Alert, quite bit confused does not look in any respiratory distress. Neck HEENT: Supple, no lymphadenopathy, no thyroid enlargement, no carotid bruits. Lungs: Clear to auscultation without crackles or wheezes no rhonchi, no deformity. Chest Wall: Decreased expansion with deep inspiration no tenderness and no deformity was found on exam, no costochondral pain or discomfort. Heart: Irregular rate and rhythm, S1, S2 positive S3 positive systolic murmur with significant bradycardia. Back: Symmetric, no curvature, ROM normal, no CVA tenderness. Abdomen: Soft, non-tender, bowel sounds active all four quadrants, no masses, no organomegaly. Extremities: Extremities normal, atraumatic, no cyanosis or edema. Generalized arthralgia. Pulses: 2+ and symmetric. Skin: Skin color, texture, tugor normal, no rashes or lesions. Neurologic: Alert oriented with significant confusion, cranial nerves II through XII intact, positive generalized weakness with abnormal balance and gait. ASSESSMENT AND PLAN: _Altered mental status: This is could be stroke versus encephalopathy, encephalopathy can be atypical related to infection, inflammation or related to ischemic change. _Worsening dementia: Much worsening than his normal status has been on Namenda 10 mg twice a day and donepezil 10 mg twice a day to my knowledge has been seen neurology symptoms are much worse probably adding smaller dose of antidepression might be a good idea. _Encephalopathy with worsening confusion and delusion: Not a clear etiology no infection can be found this is could be related to hypoperfusion from bradycardia will look into his circulation including carotid ultrasound to see if there is any abnormality also will be seen neurology and psychiatry. _A-fib with bradycardia: Continue to watch patient on heart monitor he is on atenolol which will be held for now see if spitting up his pulse might help. Also patient remain on Eliquis 2.5 mg twice a day. _Hypertensive cardiac disease: Post CABG in the past has been on medical management doing well so far no chest pain or angina I do not believe he seen cardiology lately. _Hypertension: Blood pressure remain well-controlled on lisinopril 20 mg a day continue HydroDIURIL he is off atenolol for now. Continue isosorbide as well. _History of breast cancer: Has been in remission with no recurrent. _History of colon cancer: Has been in remission with no sign of relapse. _Hyperlipidemia: Has been on simvastatin 40 mg daily. _Gout with no flareup: Remain on allopurinol 100 mg daily. _GI prophylaxis: Will continue Pepcid 20 mg daily. _DVT prophylaxis: Still on anticoagulation. CODE STATUS: Full code. Admit patient to the hospital for more than 2 night stay. Past Medical History Past Medical History: Atrial Fibrillation, Cancer, Heart Failure, Dementia, Hyperlipidemia, Hypertension, Memory Impairment, Myocardial Infarction ([place]), Osteoarthritis (OA) Additional Past Medical History / Comment(s): left breast CA,HX OF COLON CANCER- no radiation or chemo. GOUT, HAS AAA THAT IS BEING MONITORED,spouse states "ok to sign own consent" Last Myocardial Infarction Date:: 2008 History of Any Multi-Drug Resistant Organisms: None Reported Past Surgical History: Bowel Resection, Coronary Bypass/CABG Additional Past Surgical History / Comment(s): breast bx,CATARACTS, CABG 1996. LEFT BREAST SURGERY FOR CANCER Past Anesthesia/Blood Transfusion Reactions: No Reported Reaction Additional Past Anesthesia/Blood Transfusion Reaction / Comment(s): no hx blood transfusion Past Psychological History: Anxiety Smoking Status: Never smoker Past Alcohol Use History: None Reported Past Drug Use History: None Reported - Past Family History Brother(s) Family Medical History: Cancer Additional Family Medical History / Comment(s): PROSTATE CA Medications and Allergies Home Medications Medication Instructions Recorded Confirmed Type Acetaminophen Tab [Tylenol] 500 mg PO HS 06/10/14 09/08/23 History Aspirin EC [Ecotrin Low Dose] 81 mg PO HS 06/10/14 09/08/23 History Donepezil HCl 10 mg PO BID 06/10/14 09/08/23 History allopurinoL [Allopurinol] 100 mg PO DAILY 06/10/14 09/08/23 History atenoloL 25 mg PO BID 06/10/14 09/08/23 History Simvastatin [Zocor] 40 mg PO HS 02/14/17 09/08/23 History hydroCHLOROthiazide [Hydrodiuril] 25 mg PO DAILY 02/14/17 09/08/23 History Memantine [Namenda] 10 mg PO BID 03/27/20 09/08/23 History ALPRAZolam [Xanax] 0.25 mg PO BID PRN 04/07/20 09/08/23 History Apixaban [Eliquis] 2.5 mg PO BID 08/26/20 09/08/23 History Isosorbide Mononitrate ER [Imdur] 60 mg PO DAILY 09/08/23 09/08/23 History Multivitamin [Multivitamins Adult 1 tab PO DAILY 09/08/23 09/08/23 History Gummies] lisinopriL [Zestril] 20 mg PO DAILY 09/08/23 09/08/23 History traZODone HCL [Desyrel] 100 mg PO HS 09/08/23 09/08/23 History Allergies Allergy/AdvReac Type Severity Reaction Status Date / Time suture AdvReac CABG Verified 09/08/23 17:27 INCISION - took very long time to heal, wound opened up Physical Exam Vitals: Vital Signs Temp Pulse Pulse Resp BP BP Pulse Ox 09/09/23 04:00 97.6 F 106 H 16 119/76 94 L 09/09/23 02:00 109 H 09/08/23 23:30 109 H 16 09/08/23 23:15 97.9 F 103 H 16 130/72 97 09/08/23 22:28 57 L 18 129/72 97 09/08/23 20:00 94 20 120/76 86 L 09/08/23 19:14 98.4 F 54 L 16 121/67 95 09/08/23 15:49 97.6 F 110 H 20 131/72 97 Intake and Output 09/08/23 09/09/23 09/09/23 22:59 06:59 14:59 Other: Voiding Method Toilet # Voids 1 # Bowel Movements 1 Weight 87.543 kg 87.543 kg Results CBC & Chem 7: 09/08/23 17:16 09/08/23 17:16 Labs: Abnormal Lab Results - Last 24 Hours (Table) 09/08/23 09/08/23 09/08/23 Range/Units 17:16 17:16 17:16 Lymphocytes # 0.5 L (1.0-4.8) k/uL Carbon Dioxide 35 H (22-30) mmol/L Glucose 114 H (74-99) mg/dL Urine Blood Small H (Negative) Ur Leukocyte Esterase Trace H (Negative) Urine RBC 24 H (0-5) /hpf Urine Mucus Rare H (None) /hpf Thrombosis Risk Factor Assmnt - Choose All That Apply Any of the Below Risk Factors Present?: No Other Risk Factors: Yes Each Risk Factor Represents 3 Points: Age 75 years or older Other congenital or acquired thrombophilia - If yes, enter type in comment: No Thrombosis Risk Factor Assessment Total Risk Factor Score: 3 Thrombosis Risk Factor Assessment Level: Moderate Risk
--- NOTE | 2023-09-09 17:35 | P.CNNES ---
History of Present Illness Consult date: 09/09/23 Requesting physician: Behzad Donis Reason for Consult: Altered mental status History of Present Illness: Patient is a 88-year-old right-handed male with history of significant dementia, lives with his in assisted living facility, came to the hospital yesterday at 3:35 PM for altered mental status. Patient not able to provide any history. Most of the history provided by his . Patient was diagnosed with dementia in 2013 although his symptoms dates back to 2009. He is currently on Aricept 10 mg twice daily and Namenda 10 mg twice daily. Lately he has started "talking crazy", sometimes he sees people, and he asked "what they are doing", "where did they go". Once he was asking "they want me to get sausage" although there were nobody else at home. Sometimes his cannot understand and he is very confused. A couple times in the last month he said "they are not going to kill as eventually". He is slightly paranoid. His mostly takes care of him. He has not seen a neurologist, but his medications are being prescribed by his primary physician. She mentions that he has fallen 4 times and is very confused. His dementia is progressing, as he does not know how to poor in the last. Does not know how to get undressed for shower. Once he sits there, he just sits, does not do anything. Patient uses cane all the time sometimes he will uses a walker when going for long walks. His states that he is always friendly, loves to talk. Patient's believes that he cannot take care of himself at all. Vital signs on arrival blood pressure 131/72, pulse rate 110, temperature 97.6. Blood test shows normal CBC, basic metabolic panel, UA. EKG shows atrial flutter/tachycardia. CT head showed no definite acute process. Some small vessel ischemic change noted. I personally reviewed CT head, agree with the findings. Paranasal sinuses are clear. Patient does take aspirin 81 mg, Eliquis 2.5 mg twice daily, simvastatin 40 mg, besides other blood pressure medications. Also on donepezil 10 mg twice daily. Trazodone 100 mg at bedtime and Xanax 0.25 mg twice daily as needed. Patient has history of breast cancer diagnosis 2019, and was removed surgically with no need for radiation or chemo. He had abdominal aortic aneurysm repair. He had MRI and bypass surgery in 1995. He had history of colon cancer that was removed in early stage. He had [place] in 2008. No history of strokes or TIA. Patient has never smoked. He used to drink heavily from age 17 until age 59 when he quit. He started with drinking hard alcohol, then started drinking beer, about 12/day, 7 days a week. No diabetes. He does have hypertension, controlled. Review of Systems As mentioned in detail in HPI. All pertinent positive and negative mentioned there. He offers no other complaints. Past Medical History Past Medical History: Atrial Fibrillation, Cancer, Heart Failure, Dementia, Hyperlipidemia, Hypertension, Memory Impairment, Myocardial Infarction ([place]), Osteoarthritis (OA) Additional Past Medical History / Comment(s): left breast CA,HX OF COLON CANCER- no radiation or chemo. GOUT, HAS AAA THAT IS BEING MONITORED,spouse states "ok to sign own consent" Last Myocardial Infarction Date:: 2008 History of Any Multi-Drug Resistant Organisms: None Reported Past Surgical History: Bowel Resection, Coronary Bypass/CABG Additional Past Surgical History / Comment(s): breast bx,CATARACTS, CABG 1996. LEFT BREAST SURGERY FOR CANCER Past Anesthesia/Blood Transfusion Reactions: No Reported Reaction Additional Past Anesthesia/Blood Transfusion Reaction / Comment(s): no hx blood transfusion Past Psychological History: Anxiety Smoking Status: Never smoker Past Alcohol Use History: None Reported Past Drug Use History: None Reported - Past Family History Brother(s) Family Medical History: Cancer Additional Family Medical History / Comment(s): PROSTATE CA Medications and Allergies Home Medications Medication Instructions Recorded Confirmed Type Acetaminophen Tab [Tylenol] 500 mg PO HS 06/10/14 09/08/23 History Aspirin EC [Ecotrin Low Dose] 81 mg PO HS 06/10/14 09/08/23 History Donepezil HCl 10 mg PO BID 06/10/14 09/08/23 History allopurinoL [Allopurinol] 100 mg PO DAILY 06/10/14 09/08/23 History atenoloL 25 mg PO BID 06/10/14 09/08/23 History Simvastatin [Zocor] 40 mg PO HS 02/14/17 09/08/23 History hydroCHLOROthiazide [Hydrodiuril] 25 mg PO DAILY 02/14/17 09/08/23 History Memantine [Namenda] 10 mg PO BID 03/27/20 09/08/23 History ALPRAZolam [Xanax] 0.25 mg PO BID PRN 04/07/20 09/08/23 History Apixaban [Eliquis] 2.5 mg PO BID 08/26/20 09/08/23 History Isosorbide Mononitrate ER [Imdur] 60 mg PO DAILY 09/08/23 09/08/23 History Multivitamin [Multivitamins Adult 1 tab PO DAILY 09/08/23 09/08/23 History Gummies] lisinopriL [Zestril] 20 mg PO DAILY 09/08/23 09/08/23 History traZODone HCL [Desyrel] 100 mg PO HS 09/08/23 09/08/23 History Allergies Allergy/AdvReac Type Severity Reaction Status Date / Time suture AdvReac CABG Verified 09/08/23 17:27 INCISION - took very long time to heal, wound opened up Physical Examination - Vital Signs Vital Signs: Vital Signs Temp Pulse Pulse Resp BP BP Pulse Ox 09/09/23 14:00 97.8 F 98 18 124/64 95 09/09/23 08:00 97.8 F 109 H 18 138/79 97 09/09/23 04:00 97.6 F 106 H 16 119/76 94 L 09/09/23 02:00 109 H 09/08/23 23:30 109 H 16 09/08/23 23:15 97.9 F 103 H 16 130/72 97 09/08/23 22:28 57 L 18 129/72 97 09/08/23 20:00 94 20 120/76 86 L 09/08/23 19:14 98.4 F 54 L 16 121/67 95 Intake and Output 09/09/23 09/09/23 09/09/23 06:59 14:59 22:59 Intake Total 118 Balance 118 Intake: Oral 118 Other: Voiding Method Toilet # Voids 1 # Bowel Movements 1 1 Weight 87.543 kg Patient is an elderly male, very pleasant, in no acute distress. Patient is sitting comfortably in the recliner. Patient is alert awake oriented, completely disoriented, but still very pleasant. He could not tell the current month or the year or the season. Does not know what city or state or even the address he lives in. He does not know name of the current president. He does not know how many children he has. His mentions that he has 5 kids and patient could not tell me name of anyone of them. He does know name of his Nery. Speech and language functions are grossly normal. Patient can name most of the objects presented like knuckles, pen, glasses, ear but he could not name earlobe. He can repeat very well. No aphasia or dysarthria. Attention, concentration is slightly limited and fund of knowledge is severely limited. On cranial nerve examination, pupils are equal, pinpoint, round and not clearly reacting to light, visual martínez are full on confrontation, with no neglect on double simultaneous stimulation. Extraocular muscles are intact with no nystagmus. Face is symmetric, tongue protrudes to the midline. Palatal elevation and sensation normal, hearing appears normal for usual conversation and shoulder shrug normal, facial sensation normal. On muscle strength testing, there is no pronator drift and the strength is normal in arms and legs distally and proximally. Hip flexion not checked because it hurts his hips when checking. He was able to lift his knee up and down while sitting in the chair without any problem. Deep tendon reflexes are symmetric 2 at the biceps, 2 brachioradialis, 2 at the knees, absent ankles and plantars downgoing bilaterally. Sensory to touch is equal with no neglect on double simultaneous stimulation. Cerebellar function showed no ataxia for [id number] testing. No dysdiadochokinesia. No ataxia for [id number] testing on either side. Tone is mild to moderately increased and bulk of muscles normal. He has mild tremors at rest, more of the right hand as compared to the left. Gait: Patient was able to get up from chair without any help. He walks with fairly good stride and base. Slight stoop. Does not appear overtly parkinsonian. He was able to get down into the recliner very easily, did not flop down. On general examination, there is no carotid bruit or murmur, S1-S2 audible. Chest is clear on consultation. Abdomen is soft nontender. No organomegaly, bowel sounds present. Peripheral pulses are present. No peripheral edema. Results - Laboratory Findings CBC and BMP: 09/08/23 17:16 09/08/23 17:16 Abnormal Lab Findings: Abnormal Labs 09/08/23 09/08/23 09/08/23 17:16 17:16 17:16 Lymphocytes # 0.5 L Carbon Dioxide 35 H Glucose 114 H Urine Blood Small H Ur Leukocyte Esterase Trace H Urine RBC 24 H Urine Mucus Rare H Assessment and Plan Assessment: * Alzheimer's dementia, now started with behavioral disturbance. His dementia is fairly advanced, as patient is completely disoriented to time place and person, however patient is still conversational, and ambulatory. * Patient has mild parkinsonian features with tremors at rest, slightly increased tone, but his gait appears fairly normal with no significant parkinsonian features. * Frequent falls, likely due to above. * Hypertension * Coronary artery disease * Previous history of alcoholism, quit 30 years ago * Atrial flutter fibrillation, on Eliquis Plan: * Patient has fairly advanced dementia. He is on optimal doses of cognitive enhancing medications and will be continued on Namenda 10 mg twice daily and Aricept 10 mg twice daily. * Patient has developed some behavioral problems related to dementia. Psychiatry also has seen the patient. Patient takes trazodone at night and does not sleep well. Suggest switching from trazodone to Seroquel, which may help with behavioral problems, and sleep. However would defer to IM and psychiatry. * Patient has had frequent falls. Recommend using walker all the time to prevent falls. * We will check B12, folate, TSH. * 2D echo revealed EF at 40 to 45%. Moderately increased left ventricular systolic volume. Moderately decreased left ventricular EF. Moderate global hypokinesis of the left ventricle. Moderate aortic dilation at the level of sinuses of Valsalva. Severely increased left atrial volume. Moderate right atrial dilation. * Carotid Doppler revealed less than 50% stenosis of bilateral carotid bifurcation. Antegrade flow in both vertebral arteries. * Neurologically, no other workup indicated. * Please call neurology if any other concerns. Thank you for the consult. Time with Patient: Greater than 30
[2023-09-09] MEDS: ACETAMINOPHEN TAB 500 MG TAB PO SCH (21:14)
[2023-09-09] MEDS: traZODone HCL 100 MG TAB PO SCH (21:15)
[2023-09-09] MEDS: ALPRAZolam 0.25 MG TAB PO PRN (21:15)
[2023-09-09] MEDS: ASPIRIN 81 MG PO SCH (21:15)
[2023-09-09] MEDS: ATORVASTATIN 20 MG TAB PO SCH (21:15)
--- NOTE | 2023-09-09 22:18 | P.CN ---
Psychiatric Consult - . Consult date: 09/09/23 Consult:: 09/09/23 22:17 CONSULTATION Reason for consult; Evaluation and management of memory loss. Identifying Data: The patient is 88 years old, , white male who lives in [facility] with his in a house. Reason for admission: Altered MS History of present illness: The patient was unable to give any meaningful information. He exhibits severe deficit of short-term and long-term memory. He was disoriented. The provided the history. According to her the patient started showing memory decline around the year 2009. It slowly progressed and in he was diagnosed with Dementia. The memory loss has progressed significantly with behavioral changes and some paranoia. The patients is primary lead caregiver. She is now concern about his safety. She stated that few days ago he wanted to go to his apartment because there was danger in the house and thought people here would kill both. He is also incontinent of urine and bowel and has fallen recently. He is currently on Aricept 10 mg and Namenda 10 mg bid. History of past psychiatric illness: None Past medical history: Atherosclerotic heart disease, A-fib, post [place], post bypass surgery, left-sided breast, colon cancer chronic gout, Aortic Aneurysm. Substance abuse History: The patient was a heavy alcoholic. He has sobered since 1999. MSE: The patient was alert and semi-attentive. Disoriented. Patient was pleasant and cooperative. Psychomotor activity was normal Speech was normal tone, quality, quantity Mood: could not be assessed. Affect: Pleasant. He appeared in good spirits. SI or HI- None Thought content- normal Thought process- severe confabulatory and nonsensical Perceptual disturbance- none noted during this evaluation. 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 REC: Continue current medications. Will discourage use of sedative-hypnotics and antipsychotics, if needed for symptomatic relief. The patient will need a 24- hour supervised structured setting post discharge. Marquise Garza MD Psychiatry
[2023-09-10 03:53] LABS: Appearance,Urine Clear (Clear); Bilirubin,Urine Negative (Negative); Blood,Urine Moderate (Negative); Color,Urine Light Yellow; Glucose,Urine (UA) Negative (Negative); Ketones,Urine Negative (Negative); Leukocyte Esterase,Urine Negative (Negative); Nitrite,Urine Negative (Negative); PH, Urine 7.5 (5.0-8.0); Protein,Urine Negative (Negative); RBC,Urine >182 /hpf (0-5); Specific Gravity,Urine 1.007 (1.001-1.035); Urobilinogen,Urine <2.0 mg/dL (<2.0); WBC,Urine 14 /hpf (0-5)
[2023-09-10 06:36] LABS: HCT 42.3 % (39.0-53.0); HGB 13.2 gm/dL (13.0-17.5); MCH 30.3 pg (25.0-35.0); MCHC 31.3 g/dL (31.0-37.0); MCV 96.8 fL (80.0-100.0); Mean Platelet Volume 8.5; Platelet Count 151 k/uL (150-450); RBC 4.37 m/uL (4.30-5.90); RDW 13.5 % (11.5-15.5); WBC 4.5 k/uL (3.8-10.6)
[2023-09-10 06:56] LABS: ALT 15 U/L (4-49); AST 23 U/L (17-59); African American GFR (CKD) >90 (>60 ml/min/1.73 sqM); Alkaline Phosphatase 89 U/L (38-126); Anion Gap 4 mmol/L; Blood Urea Nitrogen 16 mg/dL (9-20); Calcium 8.5 mg/dL (8.4-10.2); Carbon Dioxide 32 mmol/L (22-30); Chloride 102 mmol/L (98-107); Glucose 89 mg/dL (74-99); Non-African American GFR(CKD) 80 (>60 ml/min/1.73 sqM); Potassium 3.5 mmol/L (3.5-5.1); Sodium 138 mmol/L (137-145); Total Protein 5.5 g/dL (6.3-8.2)
--- NOTE | 2023-09-10 07:32 | P.PN ---
Subjective Progress Note Date: 09/10/23 HISTORY OF PRESENT ILLNESS: 88-year-old office patient with active medical history of atherosclerotic heart disease, A-fib, post HI, post bypass surgery with history of left-sided breast cancer also history of colon cancer chronic history of gout, history of AAA with monitor with no rupture. Patient also has advanced Alzheimer disease with much worsening dementia has become much worse in the last few months. He brought to the emergency department at [facility] on late evening on 08/28/1509/08/2023 with severe altered mental status with worsening confusion and dementia has been having significant delusion and hallucination as well with more fatigue and tiredness the and the family has been having difficult time managing him at home as well as he had active significant change compared to his normal status. Ended up being seen and evaluated his laboratory value showed mildly elevated blood sugar, UA showed some right blood cell white blood cell are normal with no sign of infection, his heart monitor provided quite a bradycardia with pulse rate running in the 50s he is in A-fib quite irregular running between 40s and 60s beats per minute. CAT scan of the brain shows reflection of small vessel ischemic change with no bleed hemorrhage or any abnormality. Patient has been acting strangely compared to his normal status he was admitted to the hospital with possible stroke along with encephalopathy could be metabolic beside his severe bradycardia and A-fib with RVR. Will be seen and evaluated by neurology and psychiatry. 09/10/2023: Seen neurology yesterday agree this is not more advanced dementia to continue Namenda along with Aricept same dose his behavioral issue was referred to psychiatry adding trazodone at nighttime suggest to switch from trazodone to Seroquel might help his behavioral and have him sleep little bit better Echocardiogram showed ejection fraction of 40-45 percentile with moderate global hypokinesia of the left ventricle moderate aortic dilatation. Also carotid ultrasound came back with 50 percentile blockage does not require any intervention at this point. Neurology decided no further neuro workup will be required. 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 REVIEW OF SYSTEMS: CONSTITUTIONAL: Well-developed no acute respiratory distress. EYES: No icterus sclerae, no conjunctivitis. EARS, NOSE, MOUTH, THROAT, and FACE: No sore throat, lymphadenopathy, carotid bruits or deformity. RESPIRATORY: No SOB cough or wheezes. CARDIOVASCULAR: Positive PND orthopnea palpitation with history of A-fib. GASTROINTESTINAL: No Abd pain, Nausea or vomiting, no Diarrhea or constipation, No GI Bleed, no distention or masses. GENITOURINARY: Negative for Hematuria or UTI, no kidney stones. INTEGUMENT/BREAST: Negative for any muscular injury with mild osteoarthritis.. HEMATOLOGIC/LYMPHATIC: Negative for bleed or purpura. MUSCULOSKELTAL: Generalized myalgia and arthralgia. NEURLOGICAL: Positive altered mental status with mild confusion abnormal balance and gait with slight bit of problem with his balance when attempt to walk. BEHAVIORAL/PSYCH: Worsening dementia. ENDOCRINE: Negative. PHYSICAL EXAMINATION: General Appearance: Alert, quite bit confused does not look in any respiratory distress. Neck HEENT: Supple, no lymphadenopathy, no thyroid enlargement, no carotid bruits. Lungs: Clear to auscultation without crackles or wheezes no rhonchi, no deformity. Chest Wall: Decreased expansion with deep inspiration no tenderness and no deformity was found on exam, no costochondral pain or discomfort. Heart: Irregular rate and rhythm, S1, S2 positive S3 positive systolic murmur with significant bradycardia. Back: Symmetric, no curvature, ROM normal, no CVA tenderness. Abdomen: Soft, non-tender, bowel sounds active all four quadrants, no masses, no organomegaly. Extremities: Extremities normal, atraumatic, no cyanosis or edema. Generalized arthralgia. Pulses: 2+ and symmetric. Skin: Skin color, texture, tugor normal, no rashes or lesions. Neurologic: Alert oriented with significant confusion, cranial nerves II through XII intact, positive generalized weakness with abnormal balance and gait. ASSESSMENT AND PLAN: _Altered mental status: This is could be stroke versus encephalopathy, his workup currently with no sign of infection, echo and carotid are completed no sign of obstruction causing hypoperfusion to the brain no intervention required. _Worsening dementia: Much worsening than his normal status has been on Namenda 10 mg twice a day and donepezil 10 mg twice a day he is remain on alprazolam for anxiety and smaller dose of trazodone to help him sleep. _Encephalopathy with worsening confusion and delusion: Not a clear etiology no infection can be found this is could be related to hypoperfusion from bradycardia will look into his circulation including carotid ultrasound to see if there is any abnormality also will be seen neurology and psychiatry. _A-fib with bradycardia: Continue Eliquis for his A-fib his not on atenolol anymore seems to be doing well pulse with with no bradycardia only problem if he started having significant tachycardia require beta-jefferson then will go into the dilemma that patient might require pacemaker at some point. _Hypertensive cardiac disease: Post CABG in the past has been on medical management doing well so far no chest pain or angina I do not believe he seen cardiology lately. _Hypertension: Blood pressure remain well-controlled on lisinopril 20 mg a day continue HydroDIURIL he is off atenolol for now. Continue isosorbide as well. _History of breast cancer: Has been in remission with no recurrent. _History of colon cancer: Has been in remission with no sign of relapse. _Hyperlipidemia: Has been on simvastatin 40 mg daily. _Gout with no flareup: Remain on allopurinol 100 mg daily. _GI prophylaxis: Will continue Pepcid 20 mg daily. Prognosis: Fair. Discussion: Spoke with the after seeing neurology and psych and patient required 24-hour supervision which apparently has been a problem looking into possibility to [facility] and waiting for the social welfare research worker to help family with that new target. Objective - Vital Signs Vital signs: Vital Signs Temp 96.9 F L 09/10/23 01:59 Pulse 109 H 09/10/23 01:59 Resp 18 09/10/23 01:59 BP 124/81 09/10/23 01:59 Pulse Ox 97 09/10/23 01:59 FiO2 Intake & Output 09/09/23 09/10/23 09/10/23 18:59 06:59 18:59 Intake Total 358 Output Total 400 Balance 358 -400 Intake: Oral 358 Output: Urine 400 Other: Voiding Method Toilet # Voids 2 # Bowel Movements 1 - Labs CBC & Chem 7: 09/10/23 06:13 09/10/23 06:13 Labs: Abnormal Lab Results - Last 24 Hours (Table) 09/09/23 09/10/23 09/10/23 Range/Units 08:22 03:09 06:13 Carbon Dioxide 32 H (22-30) mmol/L Total Protein 5.5 L (6.3-8.2) g/dL Albumin 3.0 L (3.5-5.0) g/dL Vitamin B12 1179.0 H (200.0-944.0) pg/mL Urine Blood Moderate H (Negative) Urine RBC >182 H (0-5) /hpf Urine WBC 14 H (0-5) /hpf
[2023-09-10 14:27] VITALS: BMI 26.2
[2023-09-11] MEDS: METOPROLOL TARTRATE 12.5 MG TAB PO SCH (08:42)
--- NOTE | 2023-09-11 10:34 | P.PN ---
Subjective Progress Note Date: 09/11/23 HISTORY OF PRESENT ILLNESS: 88-year-old office patient with active medical history of atherosclerotic heart disease, A-fib, post AL, post bypass surgery with history of left-sided breast cancer also history of colon cancer chronic history of gout, history of AAA with monitor with no rupture. Patient also has advanced Alzheimer disease with much worsening dementia has become much worse in the last few months. He brought to the emergency department at [facility] on late evening on 08/28/1509/08/2023 with severe altered mental status with worsening confusion and dementia has been having significant delusion and hallucination as well with more fatigue and tiredness the and the family has been having difficult time managing him at home as well as he had active significant change compared to his normal status. Ended up being seen and evaluated his laboratory value showed mildly elevated blood sugar, UA showed some right blood cell white blood cell are normal with no sign of infection, his heart monitor provided quite a bradycardia with pulse rate running in the 50s he is in A-fib quite irregular running between 40s and 60s beats per minute. CAT scan of the brain shows reflection of small vessel ischemic change with no bleed hemorrhage or any abnormality. Patient has been acting strangely compared to his normal status he was admitted to the hospital with possible stroke along with encephalopathy could be metabolic beside his severe bradycardia and A-fib with RVR. Will be seen and evaluated by neurology and psychiatry. 09/10/2023: Seen neurology yesterday agree this is not more advanced dementia to continue Namenda along with Aricept same dose his behavioral issue was referred to psychiatry adding trazodone at nighttime suggest to switch from trazodone to Seroquel might help his behavioral and have him sleep little bit better Echocardiogram showed ejection fraction of 40-45 percentile with moderate global hypokinesia of the left ventricle moderate aortic dilatation. Also carotid ultrasound came back with 50 percentile blockage does not require any intervention at this point. Neurology decided no further neuro workup will be required. 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 09/11/2023: Is doing well vital signs with blood pressure 137/89 pulse rate still mildly elevated his oxygenation is slightly below does not require any oxygen at this point. Repeat lab still showing many RBCs in his urine white blood cell at 4.5 with normal hemoglobin hematocrit. Earlier his pulse rate was quite bit low now he is slightly better rapid without his beta-jefferson he might have more problem and the worry was whether he is afebrile. He had low that he required a pacemaker at some point. Also his dementia has been in quite bit worsening his altered mental status Throughout this point he is very confused does not know where he is on the plan still is not safe to be able to ambulate with no help and he needs help 15/11 apparently family are making arrangement for him to go to [facility]. REVIEW OF SYSTEMS: CONSTITUTIONAL: Well-developed no acute respiratory distress. EYES: No icterus sclerae, no conjunctivitis. EARS, NOSE, MOUTH, THROAT, and FACE: No sore throat, lymphadenopathy, carotid bruits or deformity. RESPIRATORY: No SOB cough or wheezes. CARDIOVASCULAR: Positive PND orthopnea palpitation with history of A-fib. GASTROINTESTINAL: No Abd pain, Nausea or vomiting, no Diarrhea or constipation, No GI Bleed, no distention or masses. GENITOURINARY: Negative for Hematuria or UTI, no kidney stones. INTEGUMENT/BREAST: Negative for any muscular injury with mild osteoarthritis.. HEMATOLOGIC/LYMPHATIC: Negative for bleed or purpura. MUSCULOSKELTAL: Generalized myalgia and arthralgia. NEURLOGICAL: Positive altered mental status with mild confusion abnormal balance and gait with slight bit of problem with his balance when attempt to walk. BEHAVIORAL/PSYCH: Worsening dementia. ENDOCRINE: Negative. PHYSICAL EXAMINATION: General Appearance: Alert, quite bit confused does not look in any respiratory distress. Neck HEENT: Supple, no lymphadenopathy, no thyroid enlargement, no carotid bruits. Lungs: Clear to auscultation without crackles or wheezes no rhonchi, no deformity. Chest Wall: Decreased expansion with deep inspiration no tenderness and no deformity was found on exam, no costochondral pain or discomfort. Heart: Irregular rate and rhythm, S1, S2 positive S3 positive systolic murmur wi th significant bradycardia. Back: Symmetric, no curvature, ROM normal, no CVA tenderness. Abdomen: Soft, non-tender, bowel sounds active all four quadrants, no masses, no organomegaly. Extremities: Extremities normal, atraumatic, no cyanosis or edema. Generalized arthralgia. Right ankle area the lateral side has small sore been cover slightly with a drain the pulse is palpable on that side. Pulses: 2+ and symmetric. Skin: Skin color, texture, tugor normal, no rashes or lesions. Neurologic: Alert oriented with significant confusion, cranial nerves II through XII intact, positive generalized weakness with abnormal balance and gait. ASSESSMENT AND PLAN: _Altered mental status: This is could be stroke versus encephalopathy, his workup is negative for any acute abnormalities or changes seen neurology and psychiatry and mostly his altered mental status is much worsening Alzheimer disease mostly. _Worsening dementia: Much worsening than his normal status has been on Namenda 10 mg twice a day and donepezil 10 mg twice a day he is remain on alprazolam for anxiety and smaller dose of trazodone to help him sleep. He needs supervision when he need help with safe environment 15/11. _Encephalopathy with worsening confusion and delusion: No use of any sedatives or antipsychotic medication continue to use smaller dose of alprazolam to help his anxiety mostly will continue to use trazodone at nighttime to help him sleep. _A-fib with bradycardia: Remain on anticoagulation but taking off beta-jefferson create more tachycardia and may be will put him back on metoprolol titrate 12.5 mg twice a day. _Hypertensive cardiac disease: Post CABG in the past has been on medical management doing well so far no chest pain or angina I do not believe he seen cardiology lately. _Hypertension: Blood pressure remain well-controlled on lisinopril 20 mg a day continue HydroDIURIL he is off atenolol for now. Continue isosorbide as well. _History of breast cancer: Has been in remission with no recurrent. _History of colon cancer: Has been in remission with no sign of relapse. _Small ulcer on the lateral side of the right leg continue topical care for now circulation is good with local care hopefully will heal on its own there is no reason for any intervention. _Hyperlipidemia: Has been on simvastatin 40 mg daily. Prognosis: Fair. Discussion: No further testing required waiting for family to make an arrangement for him to be transferred to either assisted living or longterm with help. Objective - Vital Signs Vital signs: Vital Signs Temp 97.4 F L 09/11/23 06:51 Pulse 78 09/11/23 06:51 Resp 18 09/11/23 06:51 BP 137/89 09/11/23 06:51 Pulse Ox 92 L 09/11/23 06:51 FiO2 Intake & Output 09/10/23 09/11/23 09/11/23 18:59 06:59 18:59 Output Total 400 Balance -400 Weight 87.543 kg Output: Urine 400 Other: # Voids 1 5 - Labs CBC & Chem 7: 09/10/23 06:13 09/10/23 06:13
--- NOTE | 2023-09-12 08:11 | P.PN ---
Subjective Progress Note Date: 09/12/23 HISTORY OF PRESENT ILLNESS: 88-year-old office patient with active medical history of atherosclerotic heart disease, A-fib, post [place], post bypass surgery with history of left-sided breast cancer also history of colon cancer chronic history of gout, history of AAA with monitor with no rupture. Patient also has advanced Alzheimer disease with much worsening dementia has become much worse in the last few months. He brought to the emergency department at [facility] on late evening on 08/28/1509/08/2023 with severe altered mental status with worsening confusion and dementia has been having significant delusion and hallucination as well with more fatigue and tiredness the and the family has been having difficult time managing him at home as well as he had active significant change compared to his normal status. Ended up being seen and evaluated his laboratory value showed mildly elevated blood sugar, UA showed some right blood cell white blood cell are normal with no sign of infection, his heart monitor provided quite a bradycardia with pulse rate running in the 50s he is in A-fib quite irregular running between 40s and 60s beats per minute. CAT scan of the brain shows reflection of small vessel ischemic change with no bleed hemorrhage or any abnormality. Patient has been acting strangely compared to his normal status he was admitted to the hospital with possible stroke along with encephalopathy could be metabolic beside his severe bradycardia and A-fib with RVR. Will be seen and evaluated by neurology and psychiatry. 09/10/2023: Seen neurology yesterday agree this is not more advanced dementia to continue Namenda along with Aricept same dose his behavioral issue was referred to psychiatry adding trazodone at nighttime suggest to switch from trazodone to Seroquel might help his behavioral and have him sleep little bit better Echocardiogram showed ejection fraction of 40-45 percentile with moderate global hypokinesia of the left ventricle moderate aortic dilatation. Also carotid ultrasound came back with 50 percentile blockage does not require any intervention at this point. Neurology decided no further neuro workup will be required. 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 09/11/2023: Is doing well vital signs with blood pressure 137/89 pulse rate still mildly elevated his oxygenation is slightly below does not require any oxygen at this point. Repeat lab still showing many RBCs in his urine white blood cell at 4.5 with normal hemoglobin hematocrit. Earlier his pulse rate was quite bit low now he is slightly better rapid without his beta-jefferson he might have more problem and the worry was whether he is afebrile. He had low that he required a pacemaker at some point. Also his dementia has been in quite bit worsening his altered mental status Throughout this point he is very confused does not know where he is on the plan still is not safe to be able to ambulate with no help and he needs help 15/11 apparently family are making arrangement for him to go to [facility]. 09/12/2023: Patient is doing very well, is very stable no major complaint or complication awaiting for social services analyst to work with his family to get him hopefully to one of the skilled nursing today. No major reaction to any medication is done, no sign of new infection patient appetite is good mobility significantly decreased needed help all the time. His memory is much worse. REVIEW OF SYSTEMS: CONSTITUTIONAL: Well-developed no acute respiratory distress. EYES: No icterus sclerae, no conjunctivitis. EARS, NOSE, MOUTH, THROAT, and FACE: No sore throat, lymphadenopathy, carotid bruits or deformity. RESPIRATORY: No SOB cough or wheezes. CARDIOVASCULAR: Positive PND orthopnea palpitation with history of A-fib. GASTROINTESTINAL: No Abd pain, Nausea or vomiting, no Diarrhea or constipation, No GI Bleed, no distention or masses. GENITOURINARY: Negative for Hematuria or UTI, no kidney stones. INTEGUMENT/BREAST: Negative for any muscular injury with mild osteoarthritis.. HEMATOLOGIC/LYMPHATIC: Negative for bleed or purpura. MUSCULOSKELTAL: Generalized myalgia and arthralgia. NEURLOGICAL: Positive altered mental status with mild confusion abnormal balance and gait with slight bit of problem with his balance when attempt to walk. BEHAVIORAL/PSYCH: Worsening dementia. ENDOCRINE: Negative. PHYSICAL EXAMINATION: General Appearance: Alert, quite bit confused does not look in any respiratory distress. Neck HEENT: Supple, no lymphadenopathy, no thyroid enlargement, no carotid bruits. Lungs: Clear to auscultation without crackles or wheezes no rhonchi, no deformity. Chest Wall: Decreased expansion with deep inspiration no tenderness and no deformity was found on exam, no costochondral pain or discomfort. Heart: Irregular rate and rhythm, S1, S2 positive S3 positive systolic murmur with significant bradycardia. Back: Symmetric, no curvature, ROM normal, no CVA tenderness. Abdomen: Soft, non-tender, bowel sounds active all four quadrants, no masses, no organomegaly. Extremities: Extremities normal, atraumatic, no cyanosis or edema. Generalized arthralgia. Right ankle area the lateral side has small sore been cover slightly with a drain the pulse is palpable on that side. Pulses: 2+ and symmetric. Skin: Skin color, texture, tugor normal, no rashes or lesions. Neurologic: Alert oriented with significant confusion, cranial nerves II through XII intact, positive generalized weakness with abnormal balance and gait. ASSESSMENT AND PLAN: _Altered mental status: This is could be stroke versus encephalopathy, his workup is negative for any acute abnormalities or changes seen neurology and psychiatry and mostly his altered mental status is much worsening Alzheimer disease mostly. _Worsening dementia: Much worsening than his normal status has been on Namenda 10 mg twice a day and donepezil 10 mg twice a day he is remain on alprazolam for anxiety and smaller dose of trazodone to help him sleep. He needs supervision when he need help with safe environment 15/11. _Encephalopathy with worsening confusion and delusion: No use of any sedatives or antipsychotic medication continue to use smaller dose of alprazolam to help his anxiety mostly will continue to use trazodone at nighttime to help him sleep. _A-fib with bradycardia: Remain on anticoagulation but taking off beta-jefferson create more tachycardia and may be will put him back on metoprolol titrate 12.5 mg twice a day. _Hypertensive cardiac disease: Post CABG in the past has been on medical management doing well so far no chest pain or angina I do not believe he seen cardiology lately. _Hypertension: Blood pressure remain well-controlled on lisinopril 20 mg a day continue HydroDIURIL he is off atenolol for now. Continue isosorbide as well. _History of breast cancer: Has been in remission with no recurrent. _History of colon cancer: Has been in remission with no sign of relapse. _Small ulcer on the lateral side of the right leg continue topical care for now circulation is good with local care hopefully will heal on its own there is no reason for any intervention. _Pressure Ulcer on the Buttock: shiva small stage 2 continue topical care as well _Hyperlipidemia: Has been on simvastatin 40 mg daily. Prognosis: Fair. Discussion: No further testing required waiting for family to make an arrangement for him to be transferred to either assisted living or skilled nursing with help. Objective - Vital Signs Vital signs: Vital Signs Temp 97.5 F L 09/12/23 04:55 Pulse 110 H 09/12/23 04:55 Resp 20 09/12/23 04:55 BP 120/75 09/12/23 04:55 Pulse Ox 94 L 09/12/23 04:55 FiO2 Intake & Output 09/11/23 09/11/23 09/12/23 06:59 18:59 06:59 Other: # Voids 5 3 # Bowel Movements 1 - Labs CBC & Chem 7: 09/10/23 06:13 09/10/23 06:13 Labs: Microbiology - Last 24 Hours (Table) 09/10/23 03:09 Urine Culture - Preliminary Urine,Voided Gram Neg Bacilli
--- NOTE | 2023-09-12 10:29 | CDI ---
Documentation Clarification Form Date: 09/12/2023 10:06:12 AM From: Leidy Salvador RN, CCDS Phone: [phone] Admit Date: 09/08/2023 09:17:00 PM Patient Name: Ethan Alvarado Visit Number: [id number] Discharge Date: ATTENTION: The Clinical Documentation Specialists (CDI) and [facility] Coding Staff appreciate your assistance in clarifying documentation. Please respond to the clarification below the line at the bottom and electronically sign. The CDI & [facility] Coding staff will review the response and follow-up if needed. Please note: Queries are made part of the Legal Health Record. If you have any questions, please contact the author of this message via ITS. Dr. Behzad Donis Atrial Fibrillation is documented in the past medical history, H/P and subsequent progress notes. Additional clarification regarding the type of atrial fibrillation is requested. History/Risk Factors: Atrial Fibrillation, Cancer, Heart Failure, Dementia, Hyperlipidemia, Hypertension, Memory Impairment, Myocardial Infarction ([place]), Osteoarthritis (OA) Clinical Indicators: Patient is an 88-year-old male for the last month he has been having worsening mentation. 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
--- NOTE | 2023-09-12 10:58 | CDI ---
Documentation Clarification Form Date: 09/12/2023 10:55:21 AM From: Leidy Salvador RN, CCDS Phone: [phone] Admit Date: 09/08/2023 09:17:00 PM Patient Name: Ethan Alvarado Visit Number: [id number] Discharge Date: ATTENTION: The Clinical Documentation Specialists (CDI) and [facility] Coding Staff appreciate your assistance in clarifying documentation. Please respond to the clarification below the line at the bottom and electronically sign. The CDI & [facility] Coding staff will review the response and follow-up if needed. Please note: Queries are made part of the Legal Health Record. If you have any questions, please contact the author of this message via ITS. Dr. Behzad Donis Your patient has [insert documentation UTI in the Neurology consult on 09/09/23. Based on this information and the findings below, is there an additional diagnosis that is clinically appropriate for this patient? Patient history/risk factors: Atrial Fibrillation, Cancer, Heart Failure, Dementia, Hyperlipidemia, Hypertension, Memory Impairment, Myocardial Infarction ([place]), Osteoarthritis (OA) Clinical Indicators: Patient is an 88-year-old male for the last month he has been having worsening mentation. UA: (09/07) Urine blood Small; Ur Leukocyte Esterase Trace, Urine WBC 3 UA: (09/09) Urine blood Moderate, Ur Leukocyte Esterase Negative, Urine WBC 14 Urine Culture: (09/09) Gram Neg Bacilli VS: 131/72 110 20 97.6 97.6 97 % Treatment: Urine with Urine culture sent Monitor VS, I/O Is there an additional diagnosis that is clinically appropriate for this patient? [ ] Urinary tract infection, POA, Provide current treatment [xx ] Urinary tract infection, Ruled out [ ] Unable to determine [ ] Other, please specify (Template Last Reviewed: May 2022) MTDD
--- NOTE | 2023-09-12 11:25 | CDI ---
Documentation Clarification Form Date: 09/12/2023 11:15:41 AM From: Leidy Salvador RN, CCDS Phone: [phone] Admit Date: 09/08/2023 09:17:00 PM Patient Name: Ethan Alvarado Visit Number: [id number] Discharge Date: ATTENTION: The Clinical Documentation Specialists (CDI) and [facility] Coding Staff appreciate your assistance in clarifying documentation. Please respond to the clarification below the line at the bottom and electronically sign. The CDI & [facility] Coding staff will review the response and follow-up if needed. Please note: Queries are made part of the Legal Health Record. If you have any questions, please contact the author of this message via ITS. Dr. Behzad Donis A left buttock stage II pressure ulcer is documented by Nursing Wound Care on 09/09/23. Based on this information and the findings below, is there an additional diagnosis that is clinically appropriate for this patient? History/Risk Factors: Atrial Fibrillation, Cancer, Heart Failure, Dementia, Hyperlipidemia, Hypertension, Memory Impairment, Myocardial Infarction ([place]), Osteoarthritis (OA) Clinical Indicators: 88-year-old male who has advanced Alzheimer disease present with worsening dementia was found to have a left buttock pressure injury present on admission. Location: Left buttock Wound description: Skin Tear Type 2 Partial Flap Loss Treatment: Turn and positioning Assist with activities of Daily living as needed Integumentary assessment per protocol Is there an additional diagnosis that is clinically appropriate for this patient? [ xx ] Left buttock Pressure, injury, Stage 2 present on admission [ ] Other condition, please specify [ ] Unable to determine Clinical Definitions: Stage 1 Pressure Ulcer: intact skin, non-blanching redness of local area Stage 2 Pressure Ulcer: Partial thickness, loss of dermis, pink wound bed Stage 3 Pressure Ulcer: Full thickness tissue loss Stage 4 Pressure Ulcer: Full thickness tissue loss with exposed bone, tendon, or muscle. Unstageable pressure ulcer: Full thickness tissue loss in which the base of the ulcer is covered by slough (yellow, lawson, flores, green or brown) and/or eschar (lawson, brown or black) in the wound bed. (Template Last Revised: June 2020) MTDD
--- NOTE | 2023-09-13 07:40 | P.PN ---
Subjective Progress Note Date: 09/13/23 HISTORY OF PRESENT ILLNESS: 88-year-old office patient with active medical history of atherosclerotic heart disease, A-fib, post CA, post bypass surgery with history of left-sided breast cancer also history of colon cancer chronic history of gout, history of AAA with monitor with no rupture. Patient also has advanced Alzheimer disease with much worsening dementia has become much worse in the last few months. He brought to the emergency department at [facility] on late evening on 08/28/1509/08/2023 with severe altered mental status with worsening confusion and dementia has been having significant delusion and hallucination as well with more fatigue and tiredness the and the family has been having difficult time managing him at home as well as he had active significant change compared to his normal status. Ended up being seen and evaluated his laboratory value showed mildly elevated blood sugar, UA showed some right blood cell white blood cell are normal with no sign of infection, his heart monitor provided quite a bradycardia with pulse rate running in the 50s he is in A-fib quite irregular running between 40s and 60s beats per minute. CAT scan of the brain shows reflection of small vessel ischemic change with no bleed hemorrhage or any abnormality. Patient has been acting strangely compared to his normal status he was admitted to the hospital with possible stroke along with encephalopathy could be metabolic beside his severe bradycardia and A-fib with RVR. Will be seen and evaluated by neurology and psychiatry. 09/10/2023: Seen neurology yesterday agree this is not more advanced dementia to continue Namenda along with Aricept same dose his behavioral issue was referred to psychiatry adding trazodone at nighttime suggest to switch from trazodone to Seroquel might help his behavioral and have him sleep little bit better Echocardiogram showed ejection fraction of 40-45 percentile with moderate global hypokinesia of the left ventricle moderate aortic dilatation. Also carotid ultrasound came back with 50 percentile blockage does not require any intervention at this point. Neurology decided no further neuro workup will be required. 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 09/11/2023: Is doing well vital signs with blood pressure 137/89 pulse rate still mildly elevated his oxygenation is slightly below does not require any oxygen at this point. Repeat lab still showing many RBCs in his urine white blood cell at 4.5 with normal hemoglobin hematocrit. Earlier his pulse rate was quite bit low now he is slightly better rapid without his beta-jefferson he might have more problem and the worry was whether he is afebrile. He had low that he required a pacemaker at some point. Also his dementia has been in quite bit worsening his altered mental status Throughout this point he is very confused does not know where he is on the plan still is not safe to be able to ambulate with no help and he needs help 15/11 apparently family are making arrangement for him to go to [facility]. 09/12/2023: Patient is doing very well, is very stable no major complaint or complication awaiting for transition social worker to work with his family to get him hopefully to one of the detention today. No major reaction to any medication is done, no sign of new infection patient appetite is good mobility significantly decreased needed help all the time. His memory is much worse. 09/13/2023: Patient is doing well and had no complaint sitting in his chair eating his meal extremely confused does not know where he is does not remember whether he is or not and the plan to my knowledge still for him to go to detention apparently was supposed to go to [facility] but that did not work out he might go to [facility] the and the family are working it out with the transition social worker. Medically stable will run blood work today has not had any CBC or chemistry since 12 05 today's urine came back technically negative with slight hematuria probably from the catheter at the time. There is no sign of infection still have advanced dementia doing slightly better with medication, he is not combative he is quite confused and need help he needs technically to be in assisted living or having to have somebody with him 15/11. REVIEW OF SYSTEMS: CONSTITUTIONAL: Well-developed no acute respiratory distress. EYES: No icterus sclerae, no conjunctivitis. EARS, NOSE, MOUTH, THROAT, and FACE: No sore throat, lymphadenopathy, carotid bruits or deformity. RESPIRATORY: No SOB cough or wheezes. CARDIOVASCULAR: Positive PND orthopnea palpitation with history of A-fib. GASTROINTESTINAL: No Abd pain, Nausea or vomiting, no Diarrhea or constipation, No GI Bleed, no distention or masses. GENITOURINARY: Negative for Hematuria or UTI, no kidney stones. INTEGUMENT/BREAST: Negative for any muscular injury with mild osteoarthritis.. HEMATOLOGIC/LYMPHATIC: Negative for bleed or purpura. MUSCULOSKELTAL: Generalized myalgia and arthralgia. NEURLOGICAL: Positive altered mental status with mild confusion abnormal balance and gait with slight bit of problem with his balance when attempt to walk. BEHAVIORAL/PSYCH: Worsening dementia. ENDOCRINE: Negative. PHYSICAL EXAMINATION: General Appearance: Alert, quite bit confused does not look in any respiratory distress. Neck HEENT: Supple, no lymphadenopathy, no thyroid enlargement, no carotid bruits. Lungs: Clear to auscultation without crackles or wheezes no rhonchi, no deformity. Chest Wall: Decreased expansion with deep inspiration no tenderness and no deformity was found on exam, no costochondral pain or discomfort. Heart: Irregular rate and rhythm, S1, S2 positive S3 positive systolic murmur with significant bradycardia. Back: Symmetric, no curvature, ROM normal, no CVA tenderness. Abdomen: Soft, non-tender, bowel sounds active all four quadrants, no masses, no organomegaly. Extremities: Extremities normal, atraumatic, no cyanosis or edema. Generalized arthralgia. Right ankle area the lateral side has small sore been cover slightly with a drain the pulse is palpable on that side. Pulses: 2+ and symmetric. Skin: Skin color, texture, tugor normal, no rashes or lesions. Neurologic: Alert oriented with significant confusion, cranial nerves II through XII intact, positive generalized weakness with abnormal balance and gait. ASSESSMENT AND PLAN: _Altered mental status: This is could be stroke versus encephalopathy, his workup is negative for any acute abnormalities or changes seen neurology and psychiatry and mostly his altered mental status is much worsening Alzheimer disease mostly. _Worsening dementia: Much worsening than his normal status has been on Namenda 10 mg twice a day and donepezil 10 mg twice a day he is remain on alprazolam for anxiety and smaller dose of trazodone to help him sleep. He needs supervision when he need help with safe environment 15/11. Still stable on current medication no need for any adjustment. _Encephalopathy with worsening confusion and delusion: No use of any sedatives or antipsychotic medication continue to use smaller dose of alprazolam to help his anxiety mostly will continue to use trazodone at nighttime to help him sleep. _A-fib with bradycardia: Remain on anticoagulation but taking off beta-jefferson create more tachycardia and may be will put him back on metoprolol titrate 12.5 mg twice a day. _Hypertensive cardiac disease: Post CABG in the past has been on medical manage ment doing well so far no chest pain or angina I do not believe he seen cardiology lately. _Hypertension: Blood pressure remain well-controlled on lisinopril 20 mg a day continue HydroDIURIL he is off atenolol for now. Continue isosorbide as well. _History of breast cancer: Has been in remission with no recurrent. _History of colon cancer: Has been in remission with no sign of relapse. _Small ulcer on the lateral side of the right leg continue topical care for now circulation is good with local care hopefully will heal on its own there is no reason for any intervention. _Pressure Ulcer on the Buttock: shiva small stage 2 continue topical care as well. _Hyperlipidemia: Has been on simvastatin 40 mg daily. Prognosis: Fair. Discussion: Stable no further testing required patient is waiting to be transferred to assisted living or detention. Objective - Vital Signs Vital signs: Vital Signs Temp 98.3 F 09/13/23 02:00 Pulse 109 H 09/13/23 02:00 Resp 18 09/12/23 20:00 BP 102/64 09/13/23 02:00 Pulse Ox 94 L 09/13/23 02:00 FiO2 Intake & Output 09/12/23 09/12/23 09/13/23 06:59 18:59 06:59 Intake Total 712 Balance 712 Intake: Oral 712 Other: Voiding Method Toilet Toilet # Voids 5 2 # Bowel Movements 2 - Labs CBC & Chem 7: 09/10/23 06:13 09/10/23 06:13 Labs: Microbiology - Last 24 Hours (Table) 09/10/23 03:09 Urine Culture - Final Urine,Voided Escherichia coli
[2023-09-13 09:07] LABS: HCT 41.1 % (39.0-53.0); HGB 13.2 gm/dL (13.0-17.5); MCV 96.9 fL (80.0-100.0); Mean Platelet Volume 8.5; Platelet Count 171 k/uL (150-450); RBC 4.24 m/uL (4.30-5.90); RDW 13.4 % (11.5-15.5); WBC 4.4 k/uL (3.8-10.6)
[2023-09-13 09:59] LABS: ALT 20 U/L (4-49); AST 30 U/L (17-59); African American GFR (CKD) 88 (>60 ml/min/1.73 sqM); Albumin 3.3 g/dL (3.5-5.0); Albumin/Globulin Ratio 1.2; Alkaline Phosphatase 86 U/L (38-126); Anion Gap 3 mmol/L; Blood Urea Nitrogen 29 mg/dL (9-20); Calcium 8.9 mg/dL (8.4-10.2); Carbon Dioxide 36 mmol/L (22-30); Chloride 95 mmol/L (98-107); Globulin 2.7 g/dL; Glucose 110 mg/dL (74-99); Non-African American GFR(CKD) 76 (>60 ml/min/1.73 sqM); Potassium 3.9 mmol/L (3.5-5.1); Sodium 134 mmol/L (137-145); Total Bilirubin 0.7 mg/dL (0.2-1.3)
--- NOTE | 2023-09-13 11:04 | P.DS ---
Providers Date of admission: 09/08/23 21:17 Attending physician: Behzad Donis Consults: 09/09/23 08:06 Consult Physician Routine Consulting Provider: Alfredo Maier Consult Reason/Comments: altered MS Do you want consulting provider notified?: Yes 09/09/23 08:08 Consult Physician Routine Consulting Provider: Paddy Santos Consult Reason/Comments: Delusion and worsening Confusion. Do you want consulting provider notified?: Yes Primary care physician: Behzad Gagandeep [facility] Course: HISTORY OF PRESENT ILLNESS: 88-year-old office patient with active medical history of atherosclerotic heart disease, A-fib, post [place], post bypass surgery with history of left-sided breast cancer also history of colon cancer chronic history of gout, history of AAA with monitor with no rupture. Patient also has advanced Alzheimer disease with much worsening dementia has become much worse in the last few months. He brought to the emergency department at [facility] on late evening on 08/28/1509/08/2023 with severe altered mental status with worsening confusion and dementia has been having significant delusion and hallucination as well with more fatigue and tiredness the and the family has been having difficult time managing him at home as well as he had active significant change compared to his normal status. Ended up being seen and evaluated his laboratory value showed mildly elevated blood sugar, UA showed some right blood cell white blood cell are normal with no sign of infection, his heart monitor provided quite a bradycardia with pulse rate running in the 50s he is in A-fib quite irregular running between 40s and 60s beats per minute. CAT scan of the brain shows reflection of small vessel ischemic change with no bleed hemorrhage or any abnormality. Patient has been acting strangely compared to his normal status he was admitted to the hospital with possible stroke along with encephalopathy could be metabolic beside his severe bradycardia and A-fib with RVR. Will be seen and evaluated by neurology and psychiatry. 09/10/2023: Seen neurology yesterday agree this is not more advanced dementia to continue Namenda along with Aricept same dose his behavioral issue was referred to psychiatry adding trazodone at nighttime suggest to switch from trazodone to Seroquel might help his behavioral and have him sleep little bit better Echocardiogram showed ejection fraction of 40-45 percentile with moderate global hypokinesia of the left ventricle moderate aortic dilatation. Also carotid ultrasound came back with 50 percentile blockage does not require any intervention at this point. Neurology decided no further neuro workup will be required. 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 09/11/2023: Is doing well vital signs with blood pressure 137/89 pulse rate still mildly elevated his oxygenation is slightly below does not require any oxygen at this point. Repeat lab still showing many RBCs in his urine white blood cell at 4.5 with normal hemoglobin hematocrit. Earlier his pulse rate was quite bit low now he is slightly better rapid without his beta-jefferson he might have more problem and the worry was whether he is afebrile. He had low that he required a pacemaker at some point. Also his dementia has been in quite bit worsening his altered mental status Throughout this point he is very confused does not know where he is on the plan still is not safe to be able to ambulate with no help and he needs help 15/11 apparently family are making arrangement for him to go to [facility]. 09/12/2023: Patient is doing very well, is very stable no major complaint or com plication awaiting for certified social workers in health care to work with his family to get him hopefully to one of the jail today. No major reaction to any medication is done, no sign of new infection patient appetite is good mobility significantly decreased needed help all the time. His memory is much worse. 09/13/2023: Patient is doing well and had no complaint sitting in his chair eating his meal extremely confused does not know where he is does not remember whether he is or not and the plan to my knowledge still for him to go to jail apparently was supposed to go to [facility] but that did not work out he might go to [employer] the and the family are working it out with the certified social workers in health care. Medically stable will run blood work today has not had any CBC or chemistry since 18 1 today's urine came back technically negative with slight hematuria probably from the catheter at the time. There is no sign of infection still have advanced dementia doing slightly better with medication, he is not combative he is quite confused and need help he needs technically to be in assisted living or having to have somebody with him /. REVIEW OF SYSTEMS: CONSTITUTIONAL: Well-developed no acute respiratory distress. EYES: No icterus sclerae, no conjunctivitis. EARS, NOSE, MOUTH, THROAT, and FACE: No sore throat, lymphadenopathy, carotid bruits or deformity. RESPIRATORY: No SOB cough or wheezes. CARDIOVASCULAR: Positive PND orthopnea palpitation with history of A-fib. GASTROINTESTINAL: No Abd pain, Nausea or vomiting, no Diarrhea or constipation, No GI Bleed, no distention or masses. GENITOURINARY: Negative for Hematuria or UTI, no kidney stones. INTEGUMENT/BREAST: Negative for any muscular injury with mild osteoarthritis.. HEMATOLOGIC/LYMPHATIC: Negative for bleed or purpura. MUSCULOSKELTAL: Generalized myalgia and arthralgia. NEURLOGICAL: Positive altered mental status with mild confusion abnormal balance and gait with slight bit of problem with his balance when attempt to walk. BEHAVIORAL/PSYCH: Worsening dementia. ENDOCRINE: Negative. PHYSICAL EXAMINATION: General Appearance: Alert, quite bit confused does not look in any respiratory distress. Neck HEENT: Supple, no lymphadenopathy, no thyroid enlargement, no carotid bruits. Lungs: Clear to auscultation without crackles or wheezes no rhonchi, no deformity. Chest Wall: Decreased expansion with deep inspiration no tenderness and no deformity was found on exam, no costochondral pain or discomfort. Heart: Irregular rate and rhythm, S1, S2 positive S3 positive systolic murmur with significant bradycardia. Back: Symmetric, no curvature, ROM normal, no CVA tenderness. Abdomen: Soft, non-tender, bowel sounds active all four quadrants, no masses, no organomegaly. Extremities: Extremities normal, atraumatic, no cyanosis or edema. Generalized arthralgia. Right ankle area the lateral side has small sore been cover slightly with a drain the pulse is palpable on that side. Pulses: 2+ and symmetric. Skin: Skin color, texture, tugor normal, no rashes or lesions. Neurologic: Alert oriented with significant confusion, cranial nerves II through XII intact, positive generalized weakness with abnormal balance and gait. ASSESSMENT AND PLAN: _Altered mental status: This is could be stroke versus encephalopathy, his workup is negative for any acute abnormalities or changes seen neurology and psychiatry and mostly his altered mental status is much worsening Alzheimer disease mostly. _Worsening dementia: Much worsening than his normal status has been on Namenda 10 mg twice a day and donepezil 10 mg twice a day he is remain on alprazolam for anxiety and smaller dose of trazodone to help him sleep. He needs supervision when he need help with safe environment 15/11. _Encephalopathy with worsening confusion and delusion: No use of any sedatives or antipsychotic medication continue to use smaller dose of alprazolam to help his anxiety mostly will continue to use trazodone at nighttime to help him sleep. _Urinary tract infection: UA the second time came back positive for E. coli susceptible to many antibiotics will do cefuroxime to 50 mg twice a day for total of 5 days. _A-fib with bradycardia: Remain on anticoagulation but taking off beta-jefferson create more tachycardia and may be will put him back on metoprolol titrate 12.5 mg twice a day. _Hypertensive cardiac disease: Post CABG in the past has been on medical management doing well so far no chest pain or angina I do not believe he seen cardiology lately. _Hypertension: Blood pressure remain well-controlled on lisinopril 20 mg a day continue HydroDIURIL he is off atenolol for now. Continue isosorbide as well. _History of breast cancer: Has been in remission with no recurrent. _History of colon cancer: Has been in remission with no sign of relapse. _Small ulcer on the lateral side of the right leg continue topical care for now circulation is good with local care hopefully will heal on its own there is no reason for any intervention. _Hyperlipidemia: Has been on simvastatin 40 mg daily. Prognosis: Fair. Discussion: No further testing required waiting for family to make an arrangement for him to be transferred to either assisted living or jail with help. Hospital course: He was admitted to the hospital on September 09, 2023 with significant upper mental status worsening dementia found to have slight bradycardia at the time and severe confusion delusion and hallucination, pulse rate was running in the 40s and 50s was taking off beta-jefferson initially patient was hospitalized seen psych and neurology, the conclusion of both was he is in advanced Alzheimer disease titrate his dementia medication which already on with his donepezil and Namenda. Psych recommend not to use any antipsychotic or any suppressive benzodiazepine. The patient remain on trazodone currently to help him sleep and still on alprazolam for mild anxiety. With decrease of beta-jefferson patient seems to do very well so far pulse rate christian. Family are making arrangement for him to be transferred to [facility] which I hope with the help of certified social workers in health care will be able to do it today. Otherwise patient is very stable for discharge today 09/13/2023. His urine culture was positive and patient be tried on cephalexin for total of 5 days. Repeat UA in 2 weeks. Time spent on discharging patient was over 32 minutes. Patient Condition at Discharge: Fair Plan - Discharge Summary Discharge Rx Participant: No New Discharge Prescriptions: New hydroCHLOROthiazide [Hydrodiuril] 25 mg PO DAILY #30 tab Metoprolol Tartrate [Lopressor] 12.5 mg PO BID #60 tab ALPRAZolam [Xanax] 0.25 mg PO BID PRN #60 tab PRN Reason: Anxiety Cefuroxime [Ceftin] 250 mg PO BID 5 Days #10 tab Continue Aspirin EC [Ecotrin Low Dose] 81 mg PO HS Acetaminophen Tab [Tylenol] 500 mg PO HS Donepezil HCl 10 mg PO BID allopurinoL [Allopurinol] 100 mg PO DAILY Simvastatin [Zocor] 40 mg PO HS Memantine [Namenda] 10 mg PO BID Multivitamin [Multivitamins Adult Gummies] 1 tab PO DAILY lisinopriL [Zestril] 20 mg PO DAILY Apixaban [Eliquis] 2.5 mg PO BID Isosorbide Mononitrate ER [Imdur] 60 mg PO DAILY traZODone HCL [Desyrel] 100 mg PO HS Discontinued atenoloL 25 mg PO BID hydroCHLOROthiazide [Hydrodiuril] 25 mg PO DAILY ALPRAZolam [Xanax] 0.25 mg PO BID PRN PRN Reason: Anxiety Discharge Medication List Acetaminophen Tab [Tylenol] 500 mg PO HS 06/10/14 [History] Aspirin EC [Ecotrin Low Dose] 81 mg PO HS 06/10/14 [History] Donepezil HCl 10 mg PO BID 06/10/14 [History] allopurinoL [Allopurinol] 100 mg PO DAILY 06/10/14 [History] Simvastatin [Zocor] 40 mg PO HS 02/14/17 [History] Memantine [Namenda] 10 mg PO BID 03/27/20 [History] Apixaban [Eliquis] 2.5 mg PO BID 08/26/20 [History] Isosorbide Mononitrate ER [Imdur] 60 mg PO DAILY 09/08/23 [History] Multivitamin [Multivitamins Adult Gummies] 1 tab PO DAILY 09/08/23 [History] lisinopriL [Zestril] 20 mg PO DAILY 09/08/23 [History] traZODone HCL [Desyrel] 100 mg PO HS 09/08/23 [History] ALPRAZolam [Xanax] 0.25 mg PO BID PRN #60 tab 09/12/23 [Rx] Metoprolol Tartrate [Lopressor] 12.5 mg PO BID #60 tab 09/12/23 [Rx] hydroCHLOROthiazide [Hydrodiuril] 25 mg PO DAILY #30 tab 09/12/23 [Rx] Cefuroxime [Ceftin] 250 mg PO BID 5 Days #10 tab 09/13/23 [Rx] Follow up Appointment(s)/Referral(s): Behzad Donis MD [Primary Care Provider] - 1-2 days (Subacute rehab please call for a follow-up appointment at discharge.) Discharge Disposition: TRANSFER TO SNF/ECF
[2023-09-14 08:46] VITALS: RESP 16; TEMP 97.6
--- NOTE | 2023-09-14 08:59 | P.PN ---
Subjective Progress Note Date: 09/14/23 HISTORY OF PRESENT ILLNESS: 88-year-old office patient with active medical history of atherosclerotic heart disease, A-fib, post [place], post bypass surgery with history of left-sided breast cancer also history of colon cancer chronic history of gout, history of AAA with monitor with no rupture. Patient also has advanced Alzheimer disease with much worsening dementia has become much worse in the last few months. He brought to the emergency department at [facility] on late evening on 08/28/1509/08/2023 with severe altered mental status with worsening confusion and dementia has been having significant delusion and hallucination as well with more fatigue and tiredness the and the family has been having difficult time managing him at home as well as he had active significant change compared to his normal status. Ended up being seen and evaluated his laboratory value showed mildly elevated blood sugar, UA showed some right blood cell white blood cell are normal with no sign of infection, his heart monitor provided quite a bradycardia with pulse rate running in the 50s he is in A-fib quite irregular running between 40s and 60s beats per minute. CAT scan of the brain shows reflection of small vessel ischemic change with no bleed hemorrhage or any abnormality. Patient has been acting strangely compared to his normal status he was admitted to the hospital with possible stroke along with encephalopathy could be metabolic beside his severe bradycardia and A-fib with RVR. Will be seen and evaluated by neurology and psychiatry. 09/10/2023: Seen neurology yesterday agree this is not more advanced dementia to continue Namenda along with Aricept same dose his behavioral issue was referred to psychiatry adding trazodone at nighttime suggest to switch from trazodone to Seroquel might help his behavioral and have him sleep little bit better Echocardiogram showed ejection fraction of 40-45 percentile with moderate global hypokinesia of the left ventricle moderate aortic dilatation. Also carotid ultrasound came back with 50 percentile blockage does not require any intervention at this point. Neurology decided no further neuro workup will be required. 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 09/11/2023: Is doing well vital signs with blood pressure 137/89 pulse rate still mildly elevated his oxygenation is slightly below does not require any oxygen at this point. Repeat lab still showing many RBCs in his urine white blood cell at 4.5 with normal hemoglobin hematocrit. Earlier his pulse rate was quite bit low now he is slightly better rapid without his beta-jefferson he might have more problem and the worry was whether he is afebrile. He had low that he required a pacemaker at some point. Also his dementia has been in quite bit worsening his altered mental status Throughout this point he is very confused does not know where he is on the plan still is not safe to be able to ambulate with no help and he needs help 15/11 apparently family are making arrangement for him to go to [facility]. 09/12/2023: Patient is doing very well, is very stable no major complaint or complication awaiting for social media campaign manager to work with his family to get him hopefully to one of the intermediate today. No major reaction to any medication is done, no sign of new infection patient appetite is good mobility significantly decreased needed help all the time. His memory is much worse. 09/13/2023: Patient is doing well and had no complaint sitting in his chair eating his meal extremely confused does not know where he is does not remember whether he is or not and the plan to my knowledge still for him to go to intermediate apparently was supposed to go to [facility] but that did not work out he might go to [employer] the and the family are working it out with the social media campaign manager. Medically stable will run blood work today has not had any CBC or chemistry since 12 05 today's urine came back technically negative with slight hematuria probably from the catheter at the time. There is no sign of infection still have advanced dementia doing slightly better with medication, he is not combative he is quite confused and need help he needs technically to be in assisted living or having to have somebody with him 15/11. 09/14/2023: Patient again still waiting for his final review with his insurance company to have them moved to [facility], he has no complaints, still been treated for UTI, his bradycardia has been much better, appetite is good. Patient has no behavioral issue at this point no fall and no risk. He is in advance dementia will definitely require and benefit from help. REVIEW OF SYSTEMS: CONSTITUTIONAL: Well-developed no acute respiratory distress. EYES: No icterus sclerae, no conjunctivitis. EARS, NOSE, MOUTH, THROAT, and FACE: No sore throat, lymphadenopathy, carotid bruits or deformity. RESPIRATORY: No SOB cough or wheezes. CARDIOVASCULAR: Positive PND orthopnea palpitation with history of A-fib. GASTROINTESTINAL: No Abd pain, Nausea or vomiting, no Diarrhea or constipation, No GI Bleed, no distention or masses. GENITOURINARY: Negative for Hematuria or UTI, no kidney stones. INTEGUMENT/BREAST: Negative for any muscular injury with mild osteoarthritis.. HEMATOLOGIC/LYMPHATIC: Negative for bleed or purpura. MUSCULOSKELTAL: Generalized myalgia and arthralgia. NEURLOGICAL: Positive altered mental status with mild confusion abnormal balance and gait with slight bit of problem with his balance when attempt to walk. BEHAVIORAL/PSYCH: Worsening dementia. ENDOCRINE: Negative. PHYSICAL EXAMINATION: General Appearance: Alert, quite bit confused does not look in any respiratory distress. Neck HEENT: Supple, no lymphadenopathy, no thyroid enlargement, no carotid bruits. Lungs: Clear to auscultation without crackles or wheezes no rhonchi, no deformity. Chest Wall: Decreased expansion with deep inspiration no tenderness and no deformity was found on exam, no costochondral pain or discomfort. Heart: Irregular rate and rhythm, S1, S2 positive S3 positive systolic murmur with significant bradycardia. Back: Symmetric, no curvature, ROM normal, no CVA tenderness. Abdomen: Soft, non-tender, bowel sounds active all four quadrants, no masses, no organomegaly. Extremities: Extremities normal, atraumatic, no cyanosis or edema. Generalized arthralgia. Right ankle area the lateral side has small sore been cover slightly with a drain the pulse is palpable on that side. Pulses: 2+ and symmetric. Skin: Skin color, texture, tugor normal, no rashes or lesions. Neurologic: Alert oriented with significant confusion, cranial nerves II through XII intact, positive generalized weakness with abnormal balance and gait. ASSESSMENT AND PLAN: _Altered mental status: This is could be stroke versus encephalopathy, his workup is negative for any acute abnormalities or changes seen neurology and psychiatry and mostly his altered mental status is much worsening Alzheimer disease mostly. _Worsening dementia: Much worsening than his normal status has been on Namenda 1 0 mg twice a day and donepezil 10 mg twice a day he is remain on alprazolam for anxiety and smaller dose of trazodone to help him sleep. He needs supervision when he need help with safe environment 15/11. Still stable on current medication no need for any adjustment. _ UTI: Been treated with Ceftin to 50 mg twice a day to complete total of 7 days. _Encephalopathy with worsening confusion and delusion: Has improved compared to before patient is not having any decline in mental status at this point is not combative not aggressive does not have any behavioral issue still been treated for UTI without treating the UTI and the bradycardia had helped or not to be questionable. _A-fib with bradycardia: Remain on anticoagulation but taking off beta-jefferson create more tachycardia and may be will put him back on metoprolol titrate 12.5 mg twice a day. _Hypertensive cardiac disease: Post CABG in the past has been on medical management doing well so far no chest pain or angina I do not believe he seen cardiology lately. _Hypertension: Blood pressure remain well-controlled on lisinopril 20 mg a day continue HydroDIURIL he is off atenolol for now. Continue isosorbide as well. _History of breast cancer: Has been in remission with no recurrent. _History of colon cancer: Has been in remission with no sign of relapse. _Small ulcer on the lateral side of the right leg continue topical care for now circulation is good with local care hopefully will heal on its own there is no reason for any intervention. _Pressure Ulcer on the Buttock: shiva small stage 2 continue topical care as well. _Hyperlipidemia: Has been on simvastatin 40 mg daily. Prognosis: Fair. Discussion: Stable again for discharge to assisted living or intermediate as soon as placement available. Objective - Vital Signs Vital signs: Vital Signs Temp 97.5 F L 09/14/23 02:00 Pulse 97 09/14/23 02:00 Resp 17 09/13/23 20:00 BP 107/68 09/14/23 02:00 Pulse Ox 97 09/14/23 02:00 FiO2 Intake & Output 09/13/23 09/13/23 09/14/23 06:59 18:59 06:59 Other: Voiding Method Toilet Toilet Toilet # Voids 3 1 - Labs CBC & Chem 7: 09/13/23 08:36 09/13/23 08:36 Labs: Abnormal Lab Results - Last 24 Hours (Table) 09/13/23 09/13/23 Range/Units 08:36 08:36 RBC 4.24 L (4.30-5.90) m/uL Sodium 134 L (137-145) mmol/L Chloride 95 L (98-107) mmol/L Carbon Dioxide 36 H (22-30) mmol/L BUN 29 H (9-20) mg/dL Glucose 110 H (74-99) mg/dL Total Protein 6.0 L (6.3-8.2) g/dL Albumin 3.3 L (3.5-5.0) g/dL
[2023-09-14 09:42] VITALS: BP 160/66; PULSE 114
== END 2023-09-14 13:13 ==
LOC: EC 15:35 → 3SCARD 21:17 → INTOOBSV 21:17 → 3SCARD 22:34 → 4SSUR 09-09 22:53 → UNDODISIN 09-14 13:13
PROVIDERS: ADMIT Internal Medicine Geriatric Medicine; ATTEND Internal Medicine Geriatric Medicine
DX: G30.1 Alzheimer's disease with late onset (principal); F02.818 Dementia in other diseases classified elsewhere, unspecified severity, with other behavioral disturbance; R29.6 Repeated falls; R25.1 Tremor, unspecified; G93.40 Encephalopathy, unspecified; I48.20 Chronic atrial fibrillation, unspecified; R00.1 Bradycardia, unspecified; N39.0 Urinary tract infection, site not specified; B96.20 Unspecified Escherichia coli [E. coli] as the cause of diseases classified elsewhere; I11.0 Hypertensive heart disease with heart failure; I50.9 Heart failure, unspecified; E78.5 Hyperlipidemia, unspecified; F41.9 Anxiety disorder, unspecified; L89.322 Pressure ulcer of left buttock, stage 2; I25.10 Atherosclerotic heart disease of native coronary artery without angina pectoris; M10.9 Gout, unspecified; I25.2 Old myocardial infarction; Z85.3 Personal history of malignant neoplasm of breast; Z85.038 Personal history of other malignant neoplasm of large intestine; Z95.1 Presence of aortocoronary bypass graft; Z79.01 Long term (current) use of anticoagulants; Z79.82 Long term (current) use of aspirin; Z79.899 Other long term (current) drug therapy
CPT/HCPCS: 96360; 96361; 99285; 36415; 93005; 93306; 97116; 97162; 97166; 80053 ×2; 80048; 84443; 82607; 82746; 83735; 85025; 85027 ×2; 81001 ×2; 87086; 87077; 87186; 93880; 70450; G0378 ×7